=== PATIENT | female | born 1960 | race Caucasian/White ===

== ENCOUNTER → 2017-04-15 | Outpatient (CLI) | payer BC ==
[~2017-04-15] MED LIST: CEPH500C24 PO; CEPH500T7 PO; FAMO-67 PO; FAMO20TA28 PO; HYDR-318 PO; HYDR-389 PO; KET10 PO; LEVO25TA61 PO; LOR5/325 PO; NIRA100C PO; PHEN200T32 PO
== END ==
LOC: SPU 15:07
DX: N30.01 Acute cystitis with hematuria (principal)
CPT/HCPCS: 51701; 81001; 87077; 87088; 87186

== ENCOUNTER → 2017-04-23 | Outpatient (CLI) | payer BC ==
[2017-04-23 09:41] LABS: INR 0.97
--- NOTE | 2017-04-23 10:42 | RADIOLOGY IMAGING REPORT ---
FACILITY: [facility] - [place] PATIENT NAME: Shelby Cabrera : 1960 MR: [id number] V: [id number] EXAM DATE: ORDERING PHYSICIAN: MILY GREENFIELD TECHNOLOGIST: [place] [facility] [place] Patient: Shelby Cabrera : 1960 Visit/Account:[id number] Date of Sevice: 04/23/2017 Exam type: CHEST PA AND LAT History: Right pleural effusion Comparison: None. Findings: There is a moderate right pleural effusion present. A small amount of airspace consolidation in the right lung base likely representing atelectasis is suspected. There is mild blunting left costophren ic angle likely related to small left pleural effusion as well. The cardiac silhouette is normal in size. There Is a implanted right IJ catheter the distal tip projects over the superior vena cava.. There are bilateral ureteral stents in place which are incompletely imaged. An ovoid ossification pr ojects in right upper quadrant of abdomen which may represent a gallstone IMPRESSION: 1. Moderate right pleural effusion and suspected atelectasis the right lower lobe Blunted left costophrenic angle likely a small left pleural effusion Report Dictated By: Beth Henriquez MD at 04/23/2017 10:35 AM Report E-Signed By: Beth Henriquez MD at 04/23/2017 10:38 AM WSN:[email or web address]
--- NOTE | 2017-04-23 11:03 | RADIOLOGY IMAGING REPORT ---
[facility] PATIENT NAME: Shelby Cabrera : 1960 MR: [id number] V: [id number] EXAM DATE: ORDERING PHYSICIAN: MILY GREENFIELD TECHNOLOGIST: Location: [facility] - [place] Patient: Shelby Cabrera : 1960 Visit/Account:[id number] Date of Sevice: 04/23/2017 CHEST SPECIAL VIEW History: Status post right thoracentesis FINDINGS: Comparison studies: Comparison study earlier today at 7:04 AM Tubes and Lines: Implanted chemotherapy port noted Lungs and pleura: Interval resolution of right pleural effusion compatible with reported history of interval thoracentesis. Inspiration and expiration views were obtained. Lungs are well-aerated. T here is no evidence of a pneumothorax. There is minimal blunting of the left costophrenic angle whic h represents a small left pleural effusion which is unchanged. Mediastinum: normal. Cardiac silhouette: normal . Osseous structures: Unremarkable for age . IMPRESSION: Interval right sided thoracentesis without evidence of adverse sequelae. Minimal left pleural effusion unchanged Report Dictated By: Quincy Valenzuela MD at 04/23/2017 10:56 AM Report E-Signed By: Quincy Valenzuela MD at 04/23/2017 11:00 AM WSN:[id number]
--- NOTE | 2017-04-23 17:07 | RADIOLOGY IMAGING REPORT ---
[place] [facility] [place]IENT NAME: Shelby Cabrera : 1960 MR: [id number] V: [id number] EXAM DATE: ORDERING PHYSICIAN: MILY GREENFIELD TECHNOLOGIST: Location: [facility] - [place] Patient: Shelby Cabrera : 1960 Visit/Account:[id number] Date of Sevice: 04/23/2017 Exam type: THORACENTESIS History: Right pleural effusion Comparison: PA and lateral chest performed earlier in the day. Findings: Informed consent was obtained. The posterior right-sided the patient's chest was prepped and draped in usual sterile fashion. Local anesthesia was accomplished with 1% lidocaine. Under sonographic gu idance a thoracentesis catheter was advanced percutaneously into the right pleural space. Approximat vasiliy 850 mL of cloudy yellow fluid was removed from the right pleural cavity. The fluid was sent to l aboratory for evaluation. The procedure was accomplished without apparent complication. IMPRESSION: 1. Successful removal of approximately 850 mL of cloudy yellow pleural fluid from the right thorax u nder sonographic guidance Report Dictated By: Beth Henriquez MD at 04/23/2017 4:53 PM Report E-Signed By: Beth Henriquez MD at 04/23/2017 4:54 PM WSN:[email or web address]
== END ==
LOC: US 00:57
PROVIDERS: ATTEND Family Medicine
DX: J90 Pleural effusion, not elsewhere classified (principal); J98.11 Atelectasis; Z95.828 Presence of other vascular implants and grafts; Z96.0 Presence of urogenital implants; K63.89 Other specified diseases of intestine
CPT/HCPCS: 36415; 71046; 85610; A7048; 88305

== ENCOUNTER 2017-05-01 00:26 | Day surgery (SDC) | payer BC ==
[~2017-05-01] VITALS: Ht 160 cm; Wt 66.2 kg
[~2017-05-01 00:26] MED LIST changes: +CHOL10005 PO; +CIPR-214 PO; +MELA3TAB31 PO; +UBID100C48 PO; +[UNRECOGNIZED DRUG - CODE] IV
[2017-05-01 06:36] VITALS: BP 121/85
[2017-05-01] MEDS ORDERED: MIDAZOLAM 2 MG/2 ML VIAL IVP PRN (06:45)
[2017-05-01] MEDS ORDERED: NORMOSOL R SOLN(*) 1000 ML BAG 1,000 ML IV PRN (06:45)
[2017-05-01] MEDS ORDERED: FAMOTIDINE 20 MG TAB PO ONE (06:45)
[2017-05-01] MEDS ORDERED: LIDOCAINE/SOD BICARB 8.4% SYR ID ONE (06:45)
[2017-05-01] MEDS ORDERED: ceFAZolin(*) 1 GM VIAL 1 GM in NS(*) 0.9% 100 ML ADDVANT BAG 100 ML IVPB ONE (06:45)
[2017-05-01] MEDS ORDERED: LIDOCAINE MPF 1% 5 ML VIAL ONE (06:56)
[2017-05-01] MEDS ORDERED: ONDANSETRON 4 MG/2 ML VIAL ONE (06:56)
[2017-05-01] MEDS ORDERED: PROPOFOL EMUL(*) 10MG/ML 20 ML 20 ML ONE (06:56)
[2017-05-01] MEDS ORDERED: fentaNYL CITR 100 MCG/2 ML AMP ONE (06:56)
[2017-05-01] MEDS ORDERED: DEXAMETHASONE SOD PHOS 10MG/ML ONE (06:56)
[2017-05-01] MEDS ORDERED: MIDAZOLAM 2 MG/2 ML VIAL ONE (06:56)
[2017-05-01] MEDS ORDERED: LIDOCAINE 2% JELLY 5 ML TUBE ONE (07:35)
[2017-05-01] MEDS ORDERED: WATER FOR IRRIG,STERILE 3000ML IR ONE (08:13)
[2017-05-01] MEDS ORDERED: CIPR-214 PO (08:51)
[2017-05-01] MEDS ORDERED: HYDR-389 PO (08:52)
[2017-05-01] MEDS ORDERED: FAMO20TA28 PO (08:53)
[2017-05-01 09:08] VITALS: BP 106/81
[2017-05-01] MEDS ORDERED: GENTAMICIN(*) 80 MG/2 ML VIAL 160 MG in NS(*) 0.9% 100 ML BAG 100 ML IVPB ONE (09:10)
[2017-05-01 09:37] VITALS: BP 110/67
[2017-05-01 09:53] VITALS: BP 115/77
[2017-05-01 09:54] VITALS: BP 121/75
--- NOTE | 2017-05-01 11:28 | RADIOLOGY IMAGING REPORT ---
FACILITY: [facility] - [place] PATIENT NAME: Shelby Cabrera : 1960 MR: [id number] V: [id number] EXAM DATE: ORDERING PHYSICIAN: CHAVEZ LIMA TECHNOLOGIST: Location: [facility] [place] Patient: Shelby Cabrera : 1960 Visit/Account:[id number] Date of Sevice: 05/01/2017 Exam: C-ARM FLUORO 1 HR Indication: STENT EXCHANGE, RAD Comparison: 01/20/2017 Findings: Fluoroscopy is provided for bilateral cystoscopy and ureteral stent exchange. Fluoroscopy time three seconds DOSE: Air kerma was 2.5 mGy. IMPRESSION: Fluoroscopy for cystoscopy, refer to the urologist operative note for complete details Report Dictated By: Marito Orosco at 05/01/2017 11:13 AM Report E-Signed By: Marito Orosco at 05/01/2017 11:24 AM WSN:[email or web address]
--- NOTE | 2017-05-01 15:32 | OPERATIVE REPORT 1 ---
EVENT DATE: May 01, 2017 SURGEON: Jem Flowers MD ANESTHESIOLOGIST: Dillon Patterson MD ANESTHESIA: General anesthetic. PREOPERATIVE DIAGNOSES 1. Bilateral ureteral obstruction secondary metastatic ovarian carcinoma. 2. Chronic indwelling ureteral stents. 3. Status post urinary tract infection. POSTOPERATIVE DIAGNOSES 1. Bilateral ureteral obstruction secondary metastatic ovarian carcinoma. 2. Chronic indwelling ureteral stents. 3. Status post urinary tract infection. PROCEDURES PERFORMED 1. Cystourethroscopy. 2. Collection of urine for urinalysis, culture, and sensitivity. 3. Bilateral ureteral stent removal and replacement. DESCRIPTION OF PROCEDURE Under general anesthetic, the patient was prepped and draped in the extended lithotomy position. The 21 panendoscope was admitted through the urethra into the bladder. Urine was obtained for culture and sensitivity. Both stents were visible in the bladder. The cystitis that was apparent three to four weeks ago appeared to be resolved. An access catheter was placed up the right collecting system. A 0.038 guidewire and then a 4.8 x 26 cm Percuflex Plus passed up the right collecting system without any difficulty. The left ureteral stent was placed in a like manner. X-ray confirmed satisfactory positioning. The bladder was drained. The patient tolerated the procedure satisfactorily and returned to the recovery room in satisfactory condition. This is a 56-year-old white female who complains of bilateral ureteral obstruction secondary to metastatic ovarian carcinoma. The patient had gotten a good result from her hysterectomy and chemotherapy. The patient recently complained of fever and not feeling well. A urine culture showed Streptococcus anginosus and diphtheroids. The bacteria were sensitive to almost all antibiotics. The patient was treated with Cipro therapy and rapidly improved. Followup cathed urine showed resolution of the infection. I explained the need for stent removal and replacement secondary to harboring chronic bacteria. The patient was agreeable to removal and replacement, and that has been accomplished. See operative note for details. The patient will be ready for discharge home when alert and functional. She is to force fluids, 2 L per day. Activities are as tolerated. She is to continue her usual medications. The patient will probably discharge on Cipro, Pepcid, and Sanger therapy. PLAN Follow up in approximately one week. The patient is to call for an appointment. If the patient has a problem, she is to contact me. [facility]
== END 2017-05-01 09:08 | disposition home or self-care (01) ==
LOC: OR 00:26
DX: C56.9 Malignant neoplasm of unspecified ovary (principal); N13.5 Crossing vessel and stricture of ureter without hydronephrosis
CPT/HCPCS: 52332; 76000; 81001; 87088; C2617; J0690; J1100; J1580; J2001; J2250; J2405; J2704; J3010; J7050

== ENCOUNTER 2017-07-24 01:45 | Day surgery (SDC) | payer BC ==
[~2017-07-24] VITALS: Ht 160 cm; Wt 65.8 kg
[~2017-07-24 01:45] MED LIST changes: +[UNRECOGNIZED DRUG - CODE] IV
[2017-07-24 10:01] LABS: PLATELET COUNT, AUTOMATED 96 K/uL (150-450)
[2017-07-24] MEDS ORDERED: MIDAZOLAM 2 MG/2 ML VIAL IVP PRN (10:25)
[2017-07-24] MEDS ORDERED: FAMOTIDINE 20 MG TAB PO ONE (10:25)
[2017-07-24] MEDS ORDERED: LIDOCAINE/SOD BICARB 8.4% SYR ID ONE (10:25)
[2017-07-24] MEDS ORDERED: NORMOSOL R SOLN(*) 1000 ML BAG 1,000 ML IV PRN (10:25)
[2017-07-24] MEDS ORDERED: GENTAMICIN(*) 80 MG/2 ML VIAL 160 MG in NS(*) 0.9% 100 ML BAG 100 ML IVPB ONE (10:25)
[2017-07-24 10:42] VITALS: BP 150/97
[2017-07-24] MEDS ORDERED: PROPOFOL EMUL(*) 10MG/ML 20 ML 20 ML ONE (11:36)
[2017-07-24] MEDS ORDERED: ONDANSETRON 4 MG/2 ML VIAL ONE (11:36)
[2017-07-24] MEDS ORDERED: DEXAMETHASONE SOD PHOS 10MG/ML ONE (11:36)
[2017-07-24] MEDS ORDERED: LIDOCAINE MPF 1% 5 ML VIAL ONE ×2 (11:36→11:38)
[2017-07-24] MEDS ORDERED: fentaNYL CITR 100 MCG/2 ML AMP ONE (11:36)
[2017-07-24] MEDS ORDERED: ceFAZolin 1 GM VIAL ONE (12:10)
[2017-07-24] MEDS ORDERED: LEVO-85 PO (13:22)
[2017-07-24 13:35] VITALS: BP 125/85
--- NOTE | 2017-07-24 13:36 | RADIOLOGY IMAGING REPORT ---
FACILITY: [facility] PATIENT NAME: Shelby Cabrera : 1960 MR: [id number] V: [id number] EXAM DATE: ORDERING PHYSICIAN: CHAVEZ LIMA TECHNOLOGIST: Location: [facility] Patient: Shelby Cabrera : 1960 Visit/Account:[id number] Date of Sevice: 07/24/2017 OR fluoroscopy films: Abdomen History: Stent placement Comparison: 05/01/2017 Findings: Fluoroscopy and imaging was provided for Dr. Lima. 0.01 minutes of fluoroscopy time was u tilized for AK of 1.27 mGy. 3 images of the abdomen are archived to PACS which demonstrate bilateral nephroureteral stents. IMPRESSION: Fluoroscopy and imaging provided for Dr. Lima please see his report for details. Report Dictated By: Ana Weaver MD at 07/24/2017 1:29 PM Report E-Signed By: Ana Weaver MD at 07/24/2017 1:31 PM WSN:[email or web address]
[2017-07-24 13:56] VITALS: BP 125/85
[2017-07-24 14:14] VITALS: BP 125/85
[2017-07-24 14:27] VITALS: BP 130/92
[2017-07-24 14:30] VITALS: BP 137/78
[2017-07-24] MEDS ORDERED: ALBUTEROL/IPRATROPIUM 3 ML NEB ONE (15:14)
--- NOTE | 2017-07-24 15:22 | RADIOLOGY IMAGING REPORT ---
FACILITY: [facility] PATIENT NAME: Shelby Cabrera : 1960 MR: [id number] V: [id number] EXAM DATE: ORDERING PHYSICIAN: ANGELA MELTON TECHNOLOGIST: Location: [facility] Patient: Shelby Cabrera : 1960 Visit/Account:[id number] Date of Sevice: 07/24/2017 2 VIEWS CHEST INDICATION: Crackles in lung base. Status post surgery. COMPARISON: 04/23/2017. FINDINGS: Cardiomediastinal silhouette and pulmonary vessels within normal limits. Right Port-A-Cath is in plac e tip in SVC/right atrial junction. There is no focal infiltrate or lobar consolidation. Small bilateral pleural effusions, right greater than left mild atelectasis. No nodule. Upper abdomen is unremarkable. No acute bony abnormality. IMPRESSION: 1. Small bilateral pleural effusions with associated atelectasis, right greater than left. No focal infiltrate. Report Dictated By: Deo Barrett at 07/24/2017 3:14 PM Report E-Signed By: Deo Barrett at 07/24/2017 3:17 PM WSN:[id number]
--- NOTE | 2017-07-25 11:31 | FLOCK CYSTOURETHROSCOPY ---
EVENT DATE: July 24, 2017 SURGEON: Rodriguez Flowers MD PREOPERATIVE DIAGNOSES 1. Bilateral ureteral stents. 2. Bilateral ureteral obstruction. 3. Ovarian cancer. POSTOPERATIVE DIAGNOSES 1. Bilateral ureteral stents. 2. Bilateral ureteral obstruction. 3. Ovarian cancer. PROCEDURES PERFORMED 1. Cystourethroscopy. 2. Bilateral ureteral stent removal. 3. Bilateral ureteral stent replacement. 4. Collection of urine for culture and sensitivity. DESCRIPTION OF PROCEDURE Under general anesthetic, the patient was prepped and draped in the extended lithotomy position. The 21-Panendoscope was admitted through the urethra and into the bladder. The ridge that has been prominent in the midline elevating the trigone seemed to be more pronounced at this setting. There is inflammation in that area as well. The remainder of the bladder appeared to be free of any inflammation. The inflammation on the ridge possibly could be due to chronic indwelling ureteral stents. The right ureteral stent was eluded in the left. Access catheters and guidewire was placed on the right and the 6-[place] x 26 cm Contour passed up to the right collective system without any difficulty. The left ureteral stent was removed. The access catheter was placed and the 6- [place] x 26 cm Percuflex Plus. The bladder was drained. X-ray confirmed satisfactory positioning in the kidney as well as in the bladder and that was confirmed under direct visualization as well. The patient tolerated the procedure satisfactorily and returned to the recovery room in satisfactory condition. This is a 56-year-old white female complaining of bilateral ureteral obstruction secondary to metastatic ovarian cancer. The patient returns for removal of the old stents and replacement with new stents. That has been accomplished. See operative note for details. The patient will be ready for discharge home when alert and functional. She is to force fluids 12 glasses of water per day. Activities are as tolerated. She is to continue her usual medications. She states she has all of her normal medications that I prescribed except for the antibiotic, Levaquin. We plan followup in one week and replacement of the stents probably in approximately three to four months. [facility]
== END 2017-07-24 13:35 | disposition home or self-care (01) ==
LOC: OR 01:45
DX: N13.5 Crossing vessel and stricture of ureter without hydronephrosis (principal); C56.9 Malignant neoplasm of unspecified ovary; E03.9 Hypothyroidism, unspecified; Z90.49 Acquired absence of other specified parts of digestive tract; Z87.891 Personal history of nicotine dependence; Z92.21 Personal history of antineoplastic chemotherapy
CPT/HCPCS: 36415; 52332; 71046; 76000; 81001; 85025; 87088; 94640; 94667; C1758; C1769; C1894; C2617; J0690; J1100; J1580; J2001; J2405; J2704; J3010; J7050; J7620

== ENCOUNTER → 2017-08-12 | Outpatient (REF) | payer BC ==
[~2017-08-12] MED LIST changes: +LEVO-85 PO
== END ==
LOC: ZZSENDIN 11:06
PROVIDERS: ATTEND Physician Assistant
DX: R06.02 Shortness of breath (principal); R06.00 Dyspnea, unspecified
CPT/HCPCS: 85379

== ENCOUNTER → 2017-08-12 | Outpatient (CLI) | payer BC ==
[~2017-08-12] MED LIST changes: +IOPAMIDOL 76% 75 ML INFUS BTL 75 ML ONE; +NS 0.9% 25 ML BAG 50 ML ONE
--- NOTE | 2017-08-12 14:04 | RADIOLOGY IMAGING REPORT ---
FACILITY: [facility] - [place] PATIENT NAME: Shelby Cabrera : 1960 MR: [id number] V: [id number] EXAM DATE: ORDERING PHYSICIAN: ADDIE DOLAN TECHNOLOGIST: [place] [facility] [place] Patient: Shelby Cabrera : 1960 Visit/Account:[id number] Date of Sevice: 08/12/2017 CTA CHEST WW/O CNTR (PULM ANG) HISTORY: Shortness of breath, elevated d-dimer, cough ADDITIONAL HISTORY: None. TECHNIQUE: CTA chest with intravenous contrast. Axial imaging acquired following administration of IV contrast timed for maximum opacification of the pulmonary arterial vasculature. Slab 3-D MIP cecily nstructed images were also created for further evaluation and interpretation. Reconstruction of the [facility] data set includes multiplanar 2-D in the sagittal and coronal planes and 3-D reconstructed tarun nal slab MIP series. 3-D images were created by the technologist. Dose Lowering Technique One of the following dose optimization techniques was utilized in the performance of this exam: Autom ated exposure control; adjustment of the mA and/or kV according to the patient's size; or use of an i terative reconstruction technique. Specific details can be referenced in the facility's radiology C T exam operational policy. CONTRAST: 75 mL Isovue-370 COMPARISON: Two view chest July 24, 2017 FINDINGS: Lungs/pleura: The bilateral pleural effusions have increased when compared to the prior chest. The right pleural effusion's posterior layering and appears large. The left pleural effusion's posterior layering and appears moderate. There is compressive atelectasis in both lower lobes. Heart/vessels: There is an implanted right IJ port the distal tip is in superior vena cava. There i s no evidence of pulmonary emboli. Mediastinum/lymph nodes: Negative. Visualized upper abdomen: There suggestion of nodular thickening along the anterolateral visualized right lobe the liver. These likely represent peritoneal implants in the history of stage III ovarian cancer. Bones/soft tissues: Negative. Additional findings: None IMPRESSION: Bilateral pleural effusions have increased in size when compared to the prior two-view chest of July 24, 2017. The right pleural effusion's posterior layering and appears large and the left pleural effu luis felipe is also posterior layering and appears moderate. There is compressive atelectasis in both lower lobes No evidence of pulmonary emboli Results were called to ADDIE DOLAN at 08/12/2017 2:00 PM. Report Dictated By: Beth Henriquez MD at 08/12/2017 1:49 PM Report E-Signed By: Beth Henriquez MD at 08/12/2017 2:01 PM WSN:[email or web address]
--- NOTE | 2017-08-12 15:54 | RADIOLOGY IMAGING REPORT ---
FACILITY: [facility] PATIENT NAME: Shelby Cabrera : 1960 MR: [id number] V: [id number] EXAM DATE: ORDERING PHYSICIAN: ADDIE DOLAN TECHNOLOGIST: Location: [facility] - [place] Patient: Shelby Cabrera : 1960 Visit/Account:[id number] Date of Sevice: 08/12/2017 Exam type: CHEST SPECIAL VIEW History: Postthoracentesis Comparison: Two view chest July 24, [address] of the chest performed today.. Findings: There is been a marked decrease in the right pleural effusion when compared to today's CTA of the tim st small right pleural effusion remains. There is better aeration of the right lung base. No pneumo thorax is seen. There is a moderate left pleural effusion again noted. Left basilar airspace consol idation consistent with atelectasis as seen on today's CTA. Cardiac silhouette is normal in size. I ncidentally noted are incompletely imaged are bilateral ureteral stents. Contrast is seen in the non dilated renal collecting systems from today's CT IMPRESSION: 1. There is been a marked decrease in right pleural effusion when compared to today's CT of the ches t. Small right pleural effusion and a small amount of right basilar atelectasis remains. No evidenc e of a pneumothorax Moderate left pleural effusion and left basilar airspace consolidation remains Report Dictated By: Beth Henriquez MD at 08/12/2017 3:48 PM Report E-Signed By: Beth Henriquez MD at 08/12/2017 3:51 PM WSN:[email or web address]
--- NOTE | 2017-08-12 17:44 | RADIOLOGY IMAGING REPORT ---
FACILITY: [facility] PATIENT NAME: Shelby Cabrera : 1960 MR: [id number] V: [id number] EXAM DATE: ORDERING PHYSICIAN: ADDIE DOLAN TECHNOLOGIST: Location: [facility] Patient: Shelby Cabrera : 1960 Visit/Account:[id number] Date of Sevice: 08/12/2017 Exam type: THORACENTESIS History: Large right pleural effusion, history of ovarian cancer stage III Comparison: CTA chest performed today. Findings: Informed consent was obtained. The right-sided the patient's posterior thorax was prepped and draped in usual sterile fashion. Local anesthesia was accomplished with 1% lidocaine. Under sonographic g uidance a thoracentesis catheter was advanced percutaneously into the posterior right thorax. Approx imately 1160 mL of dark el right pleural fluid was removed from the right pleural cavity. The pro cedure was accomplished without apparent complication. Post thoracentesis chest radiograph revealed no evidence of a pneumothorax. The patient left the department in no apparent distress. IMPRESSION: 1. Successful sonographically guided right-sided paracentesis with interval removal of 1160 mL of da rk el right pleural fluid Report Dictated By: Beth Henriquez MD at 08/12/2017 5:37 PM Report E-Signed By: Beth Henriquez MD at 08/12/2017 5:39 PM WSN:[email or web address]
== END ==
LOC: CT 12:51
PROVIDERS: ATTEND Physician Assistant
DX: J90 Pleural effusion, not elsewhere classified (principal)
CPT/HCPCS: 32555; 71046; 71275; Q9967

== ENCOUNTER → 2017-08-13 | Outpatient (REF) | payer BC ==
[~2017-08-13] MED LIST changes: -IOPAMIDOL 76% 75 ML INFUS BTL 75 ML ONE; -NS 0.9% 25 ML BAG 50 ML ONE
== END ==
LOC: ZZSENDIN 16:51
PROVIDERS: ATTEND Physician Assistant
DX: J91.8 Pleural effusion in other conditions classified elsewhere (principal)

== ENCOUNTER → 2017-08-15 | Outpatient (CLI) | payer BC ==
--- NOTE | 2017-08-15 13:28 | RADIOLOGY IMAGING REPORT ---
FACILITY: [facility] PATIENT NAME: Shelby Cabrera : 1960 MR: [id number] V: [id number] EXAM DATE: ORDERING PHYSICIAN: ADDIE DOLAN TECHNOLOGIST: Location: [facility] Patient: Shelby Cabrera : 1960 Visit/Account:[id number] Date of Sevice: 08/15/2017 Exam type: Single view of the chest History: Pleural effusion, postthoracentesis Comparison: 08/12/2017. Findings: There is interval decrease in size of left-sided pleural effusion with minimal residual left-sided pl eural fluid. Small to moderate right subpleural effusion is unchanged. Atelectasis the right lung base is noted. N ow visualized is a small right apical pneumothorax. Heart size is prominent. Right-sided chemotherapy catheter has its tip at the cavoatrial junction. IMPRESSION: 1. Interval decrease in size of the left-sided pleural effusion with trace residual left-sided pleura l fluid. No appreciable pneumothorax on the left. 2. Interval development of a small right apical pneumothorax. There remains a small to moderate right subpleural effusion. Results were called to ADDIE DOLAN at 08/15/2017 1:24 PM. Report Dictated By: Deo Lange MD at 08/15/2017 1:15 PM Report E-Signed By: Deo Lange MD at 08/15/2017 1:24 PM WSN:[email or web address]
--- NOTE | 2017-08-15 16:06 | RADIOLOGY IMAGING REPORT ---
FACILITY: [facility] PATIENT NAME: Shelby Cabrera : 1960 MR: [id number] V: [id number] EXAM DATE: ORDERING PHYSICIAN: ADDIE DOLAN TECHNOLOGIST: Location: [facility] - [place] Patient: Shelby Cabrera : 1960 Visit/Account:[id number] Date of Sevice: 08/15/2017 Exam type: THORACENTESIS History: Left pleural effusion Comparison: Chest radiograph August 12, 2017. Findings: Informed consent was obtained. The left-sided the patient's chest was prepped and draped in usual st erile fashion. Local anesthesia was accomplished with 1% lidocaine. Utilizing sonographic guidance a thoracentesis catheter was advanced percutaneously into the left pleural cavity. 1020 mL of bloody pleural fluid was removed from the left side the thorax. The postthoracentesis radiograph revealed no evidence of a left-sided pneumothorax. The procedure was without apparent complication. IMPRESSION: 1. Successful sonographically guided left-sided thoracentesis Report Dictated By: Beth Henriquez MD at 08/15/2017 3:54 PM Report E-Signed By: Beth Henriquez MD at 08/15/2017 4:02 PM WSN:[email or web address]
== END ==
LOC: US 03:50
PROVIDERS: ATTEND Physician Assistant
DX: J91.8 Pleural effusion in other conditions classified elsewhere (principal)
CPT/HCPCS: 32555; 71046

== ENCOUNTER 2017-08-17 08:54 | Emergency (ER) | payer BC ==
--- NOTE | 2017-08-17 09:01 | ER Report ---
History and Physical Time Seen By MD: 08:59 HPI/ROS CHIEF COMPLAINT: Chest pain; status post left thoracentesis on August 15. HISTORY OF PRESENT ILLNESS: Patient is a 56-year-old female who has a history of ovarian cancer. She is status post a thoracentesis that was performed on August 15 review of the postthoracentesis x-ray showed no left-sided pneumothorax however there was the development of a small right-sided pneumothorax not noticed on prior exam. Patient was scheduled for repeat x-ray tomorrow. Last night she was having discomfort in the posterior aspect of the left thorax. He states that position seems to make it worse or better. Currently states pain is 4 out of 10 in intensity. She denies any fevers or chills. REVIEW OF SYSTEMS: Constitutional: No fever, no chills. Eyes: No discharge. ENT: No sore throat. Cardiovascular: Posterior left chest wall pain Respiratory: No cough, no shortness of breath. Gastrointestinal: No abdominal pain, no vomiting. Genitourinary: No hematuria. Musculoskeletal: No back pain. Skin: No rashes. Neurological: No headache. Allergies: Coded Allergies: carboplatin (Verified Allergy, Severe, RASH, 08/17/17) HEART RATE AND BLOOD PRESSURE ELEVATION ketorolac (Verified Allergy, Mild, RASH, 08/17/17) face and ears fell tingly and she felt like she was getting a rash. Home Meds Reported Medications Oxaliplatin (OXALIPLATIN) 50 Mg Vial, 50 MG IV Q3WK, VIAL 07/22/17 Melatonin (MELATONIN) 3 Mg Tablet, 3 MG PO QHS 04/29/17 Cholecalciferol (Vitamin D3) (VITAMIN D3) Unknown Strength Tablet, PO QDAY, TAB 04/29/17 Ubidecarenone (COQ-10) 100 Mg Capsule, 100 MG PO BID, CAPSULE 04/29/17 Levothyroxine Sodium (LEVOTHYROXINE SODIUM) 25 Mcg Tablet, 25 MCG PO QDAY 04/07/15 Discontinued Reported Medications Levofloxacin 500 Mg Tab (LEVAQUIN 500 MG TAB) 500 Mg Tablet, 500 MG PO DAILY for 10 Days, #10 TAB 07/24/17 Past Medical/Surgical History History of hypothyroidism history of ovarian cancer currently undergoing chemotherapy Hx Smoking: Yes (CHEWED TOBOCCO FOR A COUPLE OF YEARS OVER 30 YRS. AGO.) Smoking Status: Former Smoker Exposure to Second Hand Smoke?: Yes Hx Substance Use Disorder: No Hx Alcohol Use: Yes (NOT WHILE ON CHEMO) Constitutional Vital Sign - Last 24 Hours 08/17/17 08/17/17 08/17/17 08/17/17 08:55 10:02 10:41 10:52 Temp 98.1 Pulse 100 94 88 90 Resp 16 16 16 16 B/P (MAP) 150/77 113/77 (89) 105/65 (78) 112/68 (83) Pulse Ox 91 91 92 93 O2 Delivery Room Air Room Air Room Air Room Air Physical Exam General Appearance: The patient is alert, has no immediate need for airway protection and no current signs of toxicity. Eyes: Pupils equal and round no injection. Respiratory: Chest is non tender, lungs are clear to auscultation. Bilateral breath sounds Cardiac: regular rate and rhythm Gastrointestinal: Abdomen is soft and non tender, no masses, bowel sounds normal. Skin: No rashes or lesions. Medical Decision Making EKG/Imaging Imaging FACILITY: [facility] [place] PATIENT NAME: Shelby Cabrera : 1960 MR: [id number] V: [id number] EXAM DATE: ORDERING PHYSICIAN: DARIO HOUSE TECHNOLOGIST: Location: [facility] [place] Patient: Shelby Cabrera : 1960 Visit/Account:[id number] Date of Sevice: 08/17/2017 CHEST PA AND LAT INDICATION: left posterior chest pain; s/p thoracentesis 08/15 COMPARISON: 08/15/2017 FINDINGS: Heart size within normal limits. Compared to prior study, there is an increasing small left pleural effusion present with underlying atelectasis. There is a stable moderate right pleural effusion with underlying atelectasis No pneumothorax is identified IMPRESSION: 1. Left-sided pleural effusion has increased in size, small effusion is now present on the left and a stable moderate effusion is again noted on the right Report Dictated By: Marito Orosco at 08/17/2017 10:36 AM Report E-Signed By: Marito Orosco at 08/17/2017 10:37 AM WSN:[email or web address] ED Course/Re-evaluation ED Course 08/17/2017 9:25:11 am patient status post left thoracentesis on T[address] 29 secondary to pleural effusion from ovarian cancer. Having some pain mostly to the left posterior aspect of the thorax. She denies any anterior chest wall pain. She also denies shortness of breath. Plan this time will be to repeat chest x-ray to look for development of a pneumothorax or pleural fluid Decision to Disposition Date: Aug 17, 2017 Decision to Disposition Time: 10:48 Depart Departure Latest Vital Signs Vital Signs Date Time Temp Pulse Resp B/P (MAP) Pulse Ox O2 Delivery O2 Flow Rate FiO2 08/17/17 10:52 90 16 112/68 (83) 93 Room Air 08/17/17 08:55 98.1 Impression: Primary Impression: Chest wall pain Condition: Improved Disposition: HOME OR SELF-CARE Patient Instructions: Chest Wall Pain (ED) DARIO HOUSE MD Aug 17, 2017 09:01
--- NOTE | 2017-08-17 10:42 | RADIOLOGY IMAGING REPORT ---
FACILITY: [facility] PATIENT NAME: Shelby Cabrera : 1960 MR: [id number] V: [id number] EXAM DATE: ORDERING PHYSICIAN: DARIO HOUSE TECHNOLOGIST: Location: [facility] Patient: Shelby Cabrera : 1960 Visit/Account:[id number] Date of Sevice: 08/17/2017 CHEST PA AND LAT INDICATION: left posterior chest pain; s/p thoracentesis 08/15 COMPARISON: 08/15/2017 FINDINGS: Heart size within normal limits. Compared to prior study, there is an increasing small left pleural effusion present with underlying a telectasis. There is a stable moderate right pleural effusion with underlying atelectasis No pneumothorax is identified IMPRESSION: 1. Left-sided pleural effusion has increased in size, small effusion is now present on the left and a stable moderate effusion is again noted on the right Report Dictated By: Marito Orosco at 08/17/2017 10:36 AM Report E-Signed By: Marito Orosco at 08/17/2017 10:37 AM WSN:[email or web address]
[2017-08-17 10:52] VITALS: BP 112/68
== END 2017-08-17 10:55 | disposition home or self-care (01) ==
LOC: ER 09:35
DX: R07.89 Other chest pain (principal)
CPT/HCPCS: 71046; 99283

== ENCOUNTER → 2017-08-25 | Outpatient (CLI) | payer BC ==
--- NOTE | 2017-08-25 11:13 | RADIOLOGY IMAGING REPORT ---
FACILITY: [facility] - [place] PATIENT NAME: Shelby Cabrera : 1960 MR: [id number] V: [id number] EXAM DATE: ORDERING PHYSICIAN: ADDIE DOLAN TECHNOLOGIST: Location: [facility] Patient: Shelby Cabrera : 1960 Visit/Account:[id number] Date of Sevice: 08/25/2017 CHEST PA AND LAT History: Pleural effusion FINDINGS: Comparison studies: Comparison study 08/17/2017 and 08/15/2017 Tubes and Lines: Implanted chemotherapy port again noted. Lungs and pleura: There is a large right-sided pleural effusion which is increased significantly si nce the previous examination. There is a very small left pleural effusion which is stable and unchan ged. Interval development of minimal left midlung discoid atelectasis. Aerated portions of the lung s are otherwise unremarkable Mediastinum: normal. Cardiac silhouette: normal . Osseous structures: Unremarkable for age . IMPRESSION: Large right pleural effusion increased from 08/17/2017. Small stable left pleural effusion. Results were called to referring service at 08/25/2017 10:54 AM. Report Dictated By: Quincy Valenzuela MD at 08/25/2017 10:54 AM Report E-Signed By: Quincy Valenzuela MD at 08/25/2017 11:08 AM WSN:[email or web address]
--- NOTE | 2017-08-25 12:37 | RADIOLOGY IMAGING REPORT ---
[facility] PATIENT NAME: Shelby Cabrera : 1960 MR: [id number] V: [id number] EXAM DATE: ORDERING PHYSICIAN: ADDIE DOLAN TECHNOLOGIST: Location: [facility] Patient: Shelby Cabrera : 1960 Visit/Account:[id number] Date of Sevice: 08/25/2017 CHEST SPECIAL VIEW HISTORY: Status post thoracentesis. Additional history: Metastatic ovarian carcinoma. Patient has had multiple prior thoracenteses. COMPARISON: Chest x-ray earlier today which demonstrated a large right pleural effusion which is inc reased since the previous exam FINDINGS: The right-sided pleural effusion has been nearly completely evacuated. There is evidence of a right basilar lung entrapment with a small corner of air seen at the right costophrenic angle. There is al so a very small right apical pneumothorax. On the inspiratory view the visceral pleura is 3 mm from the parietal wall. On the expiratory view it increases slightly to 7 mm. I spoke with the patient who lives approximately one half hour from [place]. She is asymptomatic. I asked her to spend in the next several hours in town and have lunch. If she is still asymptomatic s he may proceed home. She was given precautions that she should immediately seek medical attention if she feels she is becoming progressively short of breath. IMPRESSION: Status post right-sided thoracentesis there is a very small residual apical pneumothorax and evidence of minimal lung entrapment the right costophrenic angle. Report Dictated By: Quincy Valenzuela MD at 08/25/2017 12:26 PM Report E-Signed By: Quincy Valenzuela MD at 08/25/2017 12:33 PM WSN:[email or web address]
--- NOTE | 2017-08-25 14:18 | RADIOLOGY IMAGING REPORT ---
[facility] PATIENT NAME: Shelby Cabrera : 1960 MR: [id number] V: [id number] EXAM DATE: ORDERING PHYSICIAN: ADDIE DLOAN TECHNOLOGIST: Location: [facility] [place] Patient: Shelby Cabrera : 1960 Visit/Account:[id number] Date of Sevice: 08/25/2017 THORACENTESIS History: Metastatic ovarian cancer. Enlarging right pleural effusion. ADDITIONAL PERTINENT HISTORY: None. PROCEDURE: Following informed consent and timeout the posterior thorax over the right Lung was sonogr aphic interrogated. The pleural effusion was identified. Overlying skin was prepped and draped in the usual sterile fashion. Under sonographic guidance the skin and subcutaneous tissues and parietal pleural lining was anesthetized with 1% lidocaine. A small dermatotomy was made and under sonographic guidance centesis needle was carefully advanced into the effusion. Needle removed with flexible cat heter remaining in place. The Pleural fluid was then evacuated. A total of 1370 ML of dark yellow f luid was withdrawn. Minimal residual effusion seen at the conclusion of the procedure. Patient to ated the procedure well. Post procedural chest x-ray demonstrates reduction of the pleural effusion and very small right apical pneumothorax as well as minimal entrapped lung at the right costophrenic angle. IMPRESSION: Successful ultrasound-guided thoracentesis with a total of 1370 ML of fluid withdrawn. Very small right apical pneumothorax post procedure. See follow-up chest x-ray Report Dictated By: Quincy Valenzuela MD at 08/25/2017 2:13 PM Report E-Signed By: Quincy Valenzuela MD at 08/25/2017 2:15 PM WSN:[email or web address]
== END ==
LOC: RAD 10:08
PROVIDERS: ATTEND Physician Assistant
DX: J91.8 Pleural effusion in other conditions classified elsewhere (principal)
CPT/HCPCS: 32555; 71046

== ENCOUNTER → 2017-09-09 | Outpatient (CLI) | payer BC ==
[2017-09-09 12:03] LABS: INR 1.01
--- NOTE | 2017-09-09 14:44 | RADIOLOGY IMAGING REPORT ---
FACILITY: [facility] PATIENT NAME: Shelby Cabrera : 1960 MR: [id number] V: [id number] EXAM DATE: ORDERING PHYSICIAN: ADDIE DOLAN TECHNOLOGIST: Location: [facility] - [place] Patient: Shelby Cabrera : 1960 Visit/Account:[id number] Date of Sevice: 09/09/2017 Exam type: CHEST History: Possible bilateral pleural effusion Comparison: Two-view chest today. Findings: There is a moderate to large right pleural effusion present with adjacent atelectatic lung. Small to moderate left pleural effusion is also present IMPRESSION: 1. Moderate to large right pleural effusion and [id number] left pleural effusion Report Dictated By: Beth Henriquez MD at 09/09/2017 2:38 PM Report E-Signed By: Beth Henriquez MD at 09/09/2017 2:39 PM WSN:[email or web address]
--- NOTE | 2017-09-09 14:45 | RADIOLOGY IMAGING REPORT ---
FACILITY: [facility] - [place] PATIENT NAME: Shelby Cabrera : 1960 MR: [id number] V: [id number] EXAM DATE: ORDERING PHYSICIAN: ADDIE DOLAN TECHNOLOGIST: [place] [facility] [place] : 1960 Visit/Account:[id number] Date of Sevice: 09/09/2017 Exam type: CHEST PA AND LAT History: Metastatic ovarian cancer with shortness of breath Comparison: PA chest August 25, 2017. Findings: There is been interval resolution of the previously noted small right-sided pneumothorax. There is o pacification of the mid to lower right thorax likely a combination of right pleural effusion and comp ressive right lower lobe. There is a small to moderate left pleural effusion that appears similar to the prior study. There is no evidence of mediastinal shift. The cardiac silhouette is normal in si ze. The right-sided implanted port appears unchanged. Incompletely imaged are bilateral ureteral st ents IMPRESSION: 1. Opacification of the mid to lower right thorax likely combination of right pleural effusion and a telectatic right lower lobe Small to moderate left pleural effusion appears unchanged Report Dictated By: Beth Henriquez MD at 09/09/2017 2:40 PM Report E-Signed By: Beth Henriquez MD at 09/09/2017 2:41 PM WSN:[email or web address]
--- NOTE | 2017-09-09 17:38 | RADIOLOGY IMAGING REPORT ---
[place] [facility] [place] NAME: Shelby Cabrera : 1960 MR: [id number] V: [id number] EXAM DATE: ORDERING PHYSICIAN: ADDIE DOLAN TECHNOLOGIST: Location: [facility] [place] Patient: Shelby Cabrera : 1960 Visit/Account:[id number] Date of Sevice: 09/09/2017 Exam type: CHEST SPECIAL VIEW History: Metastatic ovarian cancer with bilateral pleural effusions, status post right thoracentesis Comparison: Two view chest performed earlier in the day. Findings: There is been a marked reduction in the right pleural effusion which now appears small. There is a s mall right-sided pneumothorax most prominent along the inferior aspect of the right thorax. On the i nspiratory film the distance between the pleural margin and the right lateral thorax is 1.3 cm. The patient stated she was in no apparent distress Nada much better than before the thoracentesis. She left for lunch with a donor services specialist with instruction s to return in two hours. A follow-up chest did demonstrate small right inferior pneumothorax which is minimally increased in size. The distance between the pleural margin and the right lateral thorax is 1.5 cm.. There is no mediastinal shift. There is options were discussed with the patient includ ing stain in the hospital for 24-hour observation, chest tube placement or returning to home with lucina se observation by her and daughter using home oxygen previous prescribed by her healthcare pr mahin. The patient is to return to emergency room if she develops any shortness of breath. She yury l receive a follow-up chest radiograph two days. Additional findings are stable small left pleural effusion and small amount of patchy airspace consol idation right lung base from a partially reexpanded right lower lobe. The cardiac silhouette appears normal. Right IJ implanted port again seen IMPRESSION: 1. There Is a small right pneumothorax most prominent along the inferior thorax following right-sheba ed thoracentesis. Various options were discussed with the patient. She has elected to return [facility] with close observation by her and daughter with instructions to return back to the emergenc y room if she developed shortness of breath. The patient will be on home oxygen as prescribed by her health care provider. Small left pleural effusion unchanged Report Dictated By: Beth Henriquez MD at 09/09/2017 5:31 PM Report E-Signed By: Beth Henriquez MD at 09/09/2017 5:35 PM WSN:[email or web address]
--- NOTE | 2017-09-09 17:41 | RADIOLOGY IMAGING REPORT ---
FACILITY: [facility] PATIENT NAME: Shelby Cabrera : 1960 MR: [id number] V: [id number] EXAM DATE: ORDERING PHYSICIAN: ADDIE DOLAN TECHNOLOGIST: Location: [facility] Patient: Shelby Cabrera : 1960 Visit/Account:[id number] Date of Sevice: 09/09/2017 Exam type: THORACENTESIS History: Right pleural effusion Comparison: Two view chest performed today. Findings: Informed consent was obtained. The patient's posterior right thorax was prepped and draped usual diane rile fashion. Local anesthesia was accomplished with 1% lidocaine. Utilizing sonographic guidance a thoracentesis catheter was advanced into the right pleural space. 1500 mL of blood-tinged pleural f luid was removed from the right thorax. The described improved symptoms. The post thoracentesis tim st radiograph did demonstrate a small inferior right pneumothorax. Please see post pneumothorax ches t report for details IMPRESSION: 1. Successful sonographically guided right-sided thoracentesis with interval removal of 1500 mL of bl ood-tinged pleural fluid Report Dictated By: Beth Henriquez MD at 09/09/2017 5:35 PM Report E-Signed By: Beth Henriquez MD at 09/09/2017 5:37 PM WSN:[email or web address]
== END ==
LOC: RAD 11:29
PROVIDERS: ATTEND Physician Assistant
DX: Z01.812 Encounter for preprocedural laboratory examination (principal); J91.8 Pleural effusion in other conditions classified elsewhere
CPT/HCPCS: 32555; 36415; 71046; 76604; 85610; A7048

== ENCOUNTER → 2017-09-11 | Outpatient (CLI) | payer BC ==
--- NOTE | 2017-09-11 15:44 | RADIOLOGY IMAGING REPORT ---
FACILITY: [facility] PATIENT NAME: Shelby Cabrera : 1960 MR: [id number] V: [id number] EXAM DATE: ORDERING PHYSICIAN: ADDIE DOLAN TECHNOLOGIST: Location: [facility] Patient: Shelby Cabrera : 1960 Visit/Account:[id number] Date of Sevice: 09/11/2017 Exam type: CHEST PA AND LAT History: Pleural effusion and pneumothorax Comparison: September 09, 2017. Findings: There is been an increase in the right pleural effusion which now appears small to moderate. This ap pears to be partially loculated in the minor fissure. There has been a decrease in the right basilar pneumothorax. There has been minimal increase in the right apical pneumothorax measures approximate ly 10% 15%. There is no mediastinal shift. Small left pleural effusion appears unchanged. The card iac silhouette is normal in size. Implanted right IJ port again seen. Bilateral ureteral stents are again identified although incompletely imaged IMPRESSION: 1. There is been an increase in right pleural effusion which now appears small to moderate Small left pleural effusion unchanged There is been a decrease in the right basilar pneumothorax with a minimal increase in the right apica l pneumothorax measuring approximately 10-15%. There is no mediastinal shift Report Dictated By: Beth Henriquez MD at 09/11/2017 3:36 PM Report E-Signed By: Beth Henriquez MD at 09/11/2017 3:39 PM WSN:[email or web address]
== END ==
LOC: RAD 13:16
PROVIDERS: ATTEND Physician Assistant
DX: J93.9 Pneumothorax, unspecified (principal); J91.8 Pleural effusion in other conditions classified elsewhere
CPT/HCPCS: 71046

== ENCOUNTER → 2017-09-15 | Outpatient (CLI) | payer BC ==
--- NOTE | 2017-09-15 09:27 | RADIOLOGY IMAGING REPORT ---
FACILITY: [facility] PATIENT NAME: Shelby Cabrera : 1960 MR: [id number] V: [id number] EXAM DATE: ORDERING PHYSICIAN: ADDIE DOLAN TECHNOLOGIST: Location: [facility] Patient: Shelby Cabrera : 1960 Visit/Account:[id number] Date of Sevice: 09/15/2017 Technique: CHEST PA AND LAT HISTORY: Pleural effusion Comparison studies: Chest radiographs September 11, 2017 FINDINGS: Redemonstrated is a right sided pleural effusion which has increased in size and now measur es moderate. Also noted is an unchanged small left pleural effusion. There is associated passive at electasis of the respective pleural effusions. A small right apical pneumothorax is present. The ca rdiomediastinal silhouette as well as right chest port are unchanged. Surgical tubing is partially v isualized overlying the abdomen. IMPRESSION: 1. Intervally increased in size right-sided pleural effusion now measuring moderate. 2. Small left pleural effusion as well as small apical right pneumothorax measuring less than 10%. 3. Passive atelectasis of the respective effusions. Report Dictated By: Pablito Crump DO at 09/15/2017 9:18 AM Report E-Signed By: Pablito Crump DO at 09/15/2017 9:22 AM WSN:[email or web address]
== END ==
LOC: RAD 08:47
PROVIDERS: ATTEND Physician Assistant
DX: J98.11 Atelectasis (principal); J91.8 Pleural effusion in other conditions classified elsewhere
CPT/HCPCS: 71046

== ENCOUNTER 2017-10-06 00:36 | Day surgery (SDC) | payer BC ==
[~2017-10-06] VITALS: Ht 158.8 cm; Wt 61.2 kg
[2017-10-06 06:19] VITALS: BP 143/92
[2017-10-06] MEDS ORDERED: LIDOCAINE/SOD BICARB 8.4% SYR ID ONE (06:30)
[2017-10-06] MEDS ORDERED: MIDAZOLAM 2 MG/2 ML VIAL IVP PRN (06:30)
[2017-10-06] MEDS ORDERED: FAMOTIDINE 20 MG TAB PO ONE (06:30)
[2017-10-06] MEDS ORDERED: ceFAZolin(*) 1 GM VIAL 1 GM in NS(*) 0.9% 100 ML ADDVANT BAG 100 ML IV ONE (06:30)
[2017-10-06] MEDS ORDERED: NORMOSOL R SOLN(*) 1000 ML BAG 1,000 ML IV PRN (06:30)
[2017-10-06] MEDS ORDERED: IOPAMIDOL-200 50 ML VIAL IS ONE (06:57)
[2017-10-06] MEDS ORDERED: fentaNYL CITR 100 MCG/2 ML AMP ONE (07:09)
[2017-10-06] MEDS ORDERED: PROPOFOL EMUL(*) 10MG/ML 20 ML 20 ML ONE (07:09)
[2017-10-06] MEDS ORDERED: LIDOCAINE MPF 1% 5 ML VIAL ONE (07:09)
[2017-10-06] MEDS ORDERED: DEXAMETHASONE SOD 4 MG/ML VIAL ONE (07:09)
[2017-10-06] MEDS ORDERED: ONDANSETRON 4 MG/2 ML VIAL ONE (07:09)
[2017-10-06] MEDS ORDERED: KETAMINE HCL 200 MG/20 ML MDV ONE (07:16)
[2017-10-06] MEDS ORDERED: WATER FOR IRRIG,STERILE 3000ML IR ONE (07:57)
--- NOTE | 2017-10-06 08:28 | RADIOLOGY IMAGING REPORT ---
FACILITY: [facility] - [place] PATIENT NAME: Shelby Cabrera : 1960 MR: [id number] V: [id number] EXAM DATE: ORDERING PHYSICIAN: CHAVEZ LIMA TECHNOLOGIST: Location: [facility] - [place] Patient: Shelby Cabrera : 1960 Visit/Account:[id number] Date of Sevice: 10/06/2017 C-ARM FLUORO 1 HR HISTORY: LATHE PULLER Intraoperative continuing education director films demonstrates bilateral ureteral stents replaced under fluoroscopic guidanc e. IMPRESSION: 1. Fluoroscopy provided for stent exchange. Fluoroscopic time of 0.3 minutes. AK 2.54mGy Report Dictated By: Bk Chow MD at 10/06/2017 8:22 AM Report E-Signed By: Bk Chow MD at 10/06/2017 8:23 AM WSN:[email or web address]
[2017-10-06] MEDS ORDERED: FAMO-67 PO (09:13)
[2017-10-06] MEDS ORDERED: ACET-3017 PO (09:14)
[2017-10-06] MEDS ORDERED: PHEN200T32 PO (09:15)
[2017-10-06] MEDS ORDERED: CIPR-344 PO (09:17)
--- NOTE | 2017-10-06 10:06 | OPERATIVE REPORT 1 ---
EVENT DATE: October 06, 2017 SURGEON: Jem Flowers MD ANESTHESIOLOGIST: Slick Burgess MD ANESTHESIA: General PREOPERATIVE DIAGNOSIS 1. Bilateral renal obstruction secondary to metastatic ovarian cancer. 2. Bilateral ureteral stent placement. POSTOPERATIVE DIAGNOSIS 1. Bilateral renal obstruction secondary to metastatic ovarian cancer. 2. Bilateral ureteral stent placement. PROCEDURE PERFORMED 1. Cystourethroscopy. 2. Bilateral ureteral stent removal. 3. Bilateral ureteral stent replacement. 4. Collection of urine for culture and sensitivity. DESCRIPTION OF PROCEDURE Under general anesthetic the patient was prepped and draped in the extended lithotomy position. A 21 panendoscope was admitted through the urethra and into the bladder. Urine was obtained for culture and sensitivity. The bladder showed 2-3+ trabeculation. Trigone and ureteral orifices were hypodeveloped in my opinion. The stents were emanating from both ureteral orifices. The stents were removed. The access catheter, guidewire and stent were placed up the left collecting system. X-ray confirmed satisfactory positioning. Access catheter, guidewire and stent were placed up the right collecting system and again x-ray confirmed satisfactory positioning. The bladder was drained. Of note, there was no evidence of acute cystitis. The patient tolerated the procedure satisfactorily and returned to the recovery room in satisfactory condition. INDICATION FOR THE PROCEDURE This is a 56-year-old white female with metastatic ovarian cancer. She is undergoing continuous chemotherapy. The patient recently transferred her care to Dr. Mandy Chamorro, [facility] Solderer/Oncologist. Follow up CT-IVP showed probable shrinkage of the obstructing periureteral lymph nodes that had been present since the onset of her obstructive uropathy and treatment with ureteral stents. She has done well. She has only had one interval infection throughout the time period. By history, the patient states she recently had 5 days of antibiotic treatment for a urinary tract infection. Reexplained that chronic, indwelling stents are associated with microscopic hematuria and pyuria. Options were discussed pretreatment with the patient and since she has had only her first CT showing some periureteral lymph nodes, she wishes to be followed for a few more months to make sure that that is the case. The patient requested replacement of the stents, that has been accomplished. See operative note for details. DISCHARGE INSTRUCTIONS The patient will be ready for discharge home when alert and functional. She is to force fluids, 2 liters per day. Activities are as tolerated. She is to continue her usual medications. She will be discharged on Cipro therapy for a few days, Pepcid, Pyridium, and Tylenol #3 therapy. Plan followup on October 14, 2017. [place]
== END 2017-10-06 09:35 | disposition home or self-care (01) ==
LOC: OR 00:36
DX: N28.89 Other specified disorders of kidney and ureter (principal)
CPT/HCPCS: 52332; 76000; 87088; C2617; J0690; J1100; J2001; J2405; J2704; J3010; J3490; J7050; Q9966

== ENCOUNTER → 2017-10-29 | Outpatient (CLI) | payer BC ==
[~2017-10-29] MED LIST changes: +ACET-3017 PO; +CIPR-344 PO
--- NOTE | 2017-10-29 11:34 | RADIOLOGY IMAGING REPORT ---
FACILITY: [facility] - [place], [place] PATIENT NAME: Shelby Cabrera : 1960 MR: [id number] V: [id number] EXAM DATE: ORDERING PHYSICIAN: ADDIE DOLAN TECHNOLOGIST: Location: [facility] - [place] Patient: Shelby Cabrera : 1960 Visit/Account:[id number] Date of Sevice: 10/29/2017 Chest 2 views: HISTORY: No lung sounds to bilateral lower lobes, shortness of breath. COMPARISON: 09/15/2017 FINDINGS: Frontal and lateral chest: There are small bilateral pleural effusions right greater than l eft. Catheter is placed in the right inferior pleural space and effusion is decreased compared to pr evious. Left pleural effusion is not significant change. Patchy opacities present in the right lung base, atelectasis versus infiltrate, this is also decreased compared to the prior study. Heart and mediastinal contours are within normal limits. Pulmonary vasculature is normal. There is no pneumothorax. Right chest port is unchanged. Bilateral nephroureteral stents are noted. Osseous structures are unremarkable for age. IMPRESSION: 1. Small bilateral pleural effusions, right slightly larger than left. Right pleural effusion is de creased in size compared to previous, left is unchanged. 2. Interval placement of a right pleural catheter which is in the inferior right pleural space. 3. Patchy right basilar airspace opacity, atelectasis versus infiltrate, there is improved aeration of the right lung compared to previous. Report Dictated By: Ana Weaver MD at 10/29/2017 11:25 AM Report E-Signed By: Ana Weaver MD at 10/29/2017 11:29 AM WSN:[id number]
== END ==
LOC: RAD 09:18
PROVIDERS: ATTEND Physician Assistant
DX: J90 Pleural effusion, not elsewhere classified (principal)
CPT/HCPCS: 71046

== ENCOUNTER → 2017-11-13 | Outpatient (CLI) | payer BC ==
--- NOTE | 2017-11-13 11:14 | RADIOLOGY IMAGING REPORT ---
FACILITY: [facility] - [place] PATIENT NAME: Shelby Cabrera : 1960 MR: [id number] V: [id number] EXAM DATE: ORDERING PHYSICIAN: ADDIE DOLAN TECHNOLOGIST: Location: [facility] - [place] Patient: Shelby Cabrera : 1960 Visit/Account:[id number] Date of Sevice: 11/13/2017 CHEST PA AND LAT Additional pertinent History: Pleural effusion COMPARISON STUDIES: 10/29/2017 FINDINGS: Support lines and catheters: Right chest [id number] catheter. Lungs and Pleura: Bilateral pleural effusions. Reidentified is the pleural catheter in the right lo wer lung. Size and appearance of the effusion and adjacent atelectasis volume loss similar to the pr evious study. Left effusion similar appearance. Heart and vasculature: Negative. Darlene and Mediastinum: Negative. Bones and Chest wall: Negative. Upper Abdomen: Negative. IMPRESSION: 1. 1. Bilateral pleural effusions. Stable in appearance when compared to previous study. Patchy a telectatic lung changes in the right lower lung similar to the previous study. Report Dictated By: Bk Chow MD at 11/13/2017 11:09 AM Report E-Signed By: Bk Chow MD at 11/13/2017 11:11 AM WSN:[email or web address]
== END ==
LOC: RAD 10:13
PROVIDERS: ATTEND Physician Assistant
DX: J91.8 Pleural effusion in other conditions classified elsewhere (principal)
CPT/HCPCS: 71046

== ENCOUNTER → 2017-11-27 | Outpatient (CLI) | payer BC ==
--- NOTE | 2017-11-27 11:24 | RADIOLOGY IMAGING REPORT ---
FACILITY: [facility] PATIENT NAME: Shelby Cabrera : 1960 MR: [id number] V: [id number] EXAM DATE: ORDERING PHYSICIAN: ADDIE DOLAN TECHNOLOGIST: Location: [facility] - [place] Patient: Shelby Cabrera : 1960 Visit/Account:[id number] Date of Sevice: 11/27/2017 2 VIEWS CHEST INDICATION: Follow-up effusion COMPARISON: 11/13/2017 FINDINGS: Cardiomediastinal silhouette: Heart size within normal limits. Lungs: There are bibasilar opacities of both lungs. Bilateral effusions, right greater than left, not significantly changed. Bones and soft tissues: Right chest port intact, left pigtail catheter partially viewed. There is a right-sided chest tube. IMPRESSION: 1. Stable chest; unchanged bilateral pleural effusion with bibasilar opacities, likely atelectasis, consolidation not excluded. 2. Support devices as above. Report Dictated By: Deo Irene MD at 11/27/2017 11:18 AM Report E-Signed By: Deo Irene MD at 11/27/2017 11:20 AM WSN:[email or web address]
== END ==
LOC: RAD 10:55
PROVIDERS: ATTEND Physician Assistant
DX: J90 Pleural effusion, not elsewhere classified (principal); Z95.828 Presence of other vascular implants and grafts
CPT/HCPCS: 71046

== ENCOUNTER → 2017-12-03 | Outpatient (CLI) | payer BC ==
[~2017-12-03] MED LIST changes: +IOPAMIDOL 76% 75 ML INFUS BTL 75 ML ONE; +LEVO50TA86 PO
--- NOTE | 2017-12-03 11:49 | RADIOLOGY IMAGING REPORT ---
FACILITY: [facility] - [place] PATIENT NAME: Shelby Cabrera : 1960 MR: [id number] V: [id number] EXAM DATE: ORDERING PHYSICIAN: REYNALDO GONZALEZ TECHNOLOGIST: Location: [facility] [place] Patient: Shelby Cabrera : 1960 Visit/Account:[id number] Date of Sevice: 12/03/2017 CHEST/AB/PELV W/CONTRAST HISTORY: Stage III ovarian cancer, hypoxia ADDITIONAL HISTORY: None. TECHNIQUE: Following administration of IV contrast axial images acquired through the chest abdomen a nd pelvis during the portal venous phase. Coronal and sagittal reformatting was also performed. Dose Lowering Technique One of the following dose optimization techniques was utilized in the performance of this exam: Autom ated exposure control; adjustment of the mA and/or kV according to the patient's size; or use of an i terative reconstruction technique. Specific details can be referenced in the facility's radiology C T exam operational policy. CONTRAST: 85 mL Isovue-370 COMPARISON: CTA of the chest August 12, [address] of the abdomen and pelvis November 02, 2016 FINDINGS: CHEST: Lungs/Pleura: There is a 9 mm vague groundglass opacity lateral aspect of the right upper lobe best seen on image 83 of series 4 There is a 2 mm noncalcified nodule lateral aspect of the right upper lobe There is mild interstitial prominence in the posterior inferior aspect right upper lobe with coarse l inear stranding seen anteriorly in the right middle lobe. There is a small posterior layering right pleural effusion with adjacent slightly irregular pleural thickening and compressive atelectasis in t he inferior right lower lobe and extensive peribronchial thickening throughout the right lower lobe. There is an indwelling right pleural catheter the distal tip projects over the anterior aspect the r ight lower thorax There is a moderate posterior layering left pleural effusion with a small amount compressive atelecta sis left lower lobe Mediastinum/lymph nodes: No pathologically enlarged mediastinal lymph nodes are identified Heart/vessels: There is an implanted right IJ port distal tip in superior vena cava. Bones/soft tissues: No aggressive appearing bone lesions are seen ABDOMEN AND PELVIS: Hepatobiliary: Cholelithiasis although no evidence of bony ductal dilatation Spleen: Negative. Pancreas: Negative. Adrenals: Negative. Kidneys ureters and bladder : There are bilateral double pigtail ureteral stents. There is mild to m oderate hydronephrosis on the right. Also noted is a diminished nephrogram on the right relative to the left suggesting partial obstruction. There is diffuse thickening of the left ureter which is sim ilar to the prior CT . Bladder is decompressed therefore not ideally evaluated Genitalia: Postsurgical changes from hysterectomy and probable bilateral oophorectomy. GI: There is diverticulosis left-sided colon although no CT evidence of acute diverticulitis Vessels/spaces/nodes: Left paracolic lymph nodes appear decreased in size now measuring 1.3 x 0.9 cm previously 1.8 x 1.1 cm. These now appear to be partially calcified is an additional left paracolic lymph node measuring 9 x 8 mm previously 5 x 6 mm best seen on image 127 Previously noted left common iliac lymph node now measures 3.2 x 2.4 cm previously 2.2 x 1.3 cm best seen on image 133 Left common iliac lymph node now measures 1.4 x 0.7 cm previously measuring 1.3 x 1 cm Peritoneal implants in the anterior lower pelvis have increased in size. There is an additional new implant abutting the serosal surface of the distal sigmoid colon measuring 1.6 x 1.8 cm Bones/soft tissues: No aggressive appearing bone lesions are seen Additional findings: None pertinent. IMPRESSION: A 9 mm vague groundglass opacity lateral aspect of the right upper lobe and mild interstitial promine nce in the posterior inferior aspect right upper lobe are new since the prior study may represent an acute infectious/inflamma ory process. Also noted is a 2 mm noncalcified nodule lateral aspect right upper lobeSmall posterior layering righ t pleural effusion is present with an indwelling catheter and slightly irregular pleural thickening l ikely related to metastatic disease. Compressive atelectasis in the inferior right lower lobe and ex tensive peribronchial thickening throughout the right lower lobe appears increased Moderate posterior layering left pleural effusion and a small amount compressive atelectasis left low er lobe Cholelithiasis There are bilateral double pigtail ureteral stents. There is a mild to moderate hydronephrosis on th e right which is increased when compared the prior study. There is a diminished nephrogram on the ri ght relative to the left also suggesting partial obstruction Diffuse thickening of the left ureter which appears similar to the prior study Diverticulosis left-sided colon Mixed response to therapy in regards to the retroperitoneal adenopathy as detailed above Increasing peritoneal implants in the pelvis Report Dictated By: Beth Henriquez MD at 12/03/2017 11:19 AM Report E-Signed By: Beth Henriquez MD at 12/03/2017 11:45 AM WSN:[id number]
== END ==
LOC: CT 00:32
PROVIDERS: ATTEND Obstetrics & Gynecology Gynecologic Oncology
DX: J90 Pleural effusion, not elsewhere classified (principal); R91.8 Other nonspecific abnormal finding of lung field; Z95.828 Presence of other vascular implants and grafts; K80.20 Calculus of gallbladder without cholecystitis without obstruction; Z90.710 Acquired absence of both cervix and uterus; Z90.79 Acquired absence of other genital organ(s); Z90.722 Acquired absence of ovaries, bilateral; K57.30 Diverticulosis of large intestine without perforation or abscess without bleeding
CPT/HCPCS: 71260; 74177; Q9967

== ENCOUNTER 2017-12-04 21:57 | Inpatient (IN) | payer BC ==
[~2017-12-04] VITALS: Ht 157.5 cm; Wt 60.8 kg
[~2017-12-04 21:57] MED LIST changes: -IOPAMIDOL 76% 75 ML INFUS BTL 75 ML ONE; -LEVO50TA86 PO
--- NOTE | 2017-12-04 21:59 | ER Report ---
History and Physical Time Seen By MD: 21:59 HPI/ROS CHIEF COMPLAINT: Fever, shortness of breath HISTORY OF PRESENT ILLNESS: 57-year-old female with metastatic ovarian cancer. She is followed by oncology down in [place]. She was seen yesterday for a CAT scan with contrast chest, abdomen and pelvis. There was the appearance of an infiltrate in the right upper lobe suggesting pneumonia. She is normally on 2 L by nasal cannula. Tonight she is much more short of breath. She arrives here not wearing her oxygen with saturation of 52% on room air. Rapidly improves after supplemental O2 was applied at 3 L by nasal cannula. Her sats come up to 90. He is documented to have a fever 101.6 on arrival here. She has a pleural effusion that is malignant. She has an indwelling pleural catheter REVIEW OF SYSTEMS: Respiratory: As above Cardiovascular: No chest pain, no palpitations. Gastrointestinal: No vomiting, no abdominal pain. Musculoskeletal: No back pain. Allergies: Coded Allergies: carboplatin (Verified Allergy, Severe, RASH, 12/04/17) HEART RATE AND BLOOD PRESSURE ELEVATION ketorolac (Verified Allergy, Mild, RASH, 12/04/17) face and ears fell tingly and she felt like she was getting a rash. Home Meds Reported Medications Levothyroxine Sodium (LEVOTHYROXINE SODIUM) 25 Mcg Tablet, 25 MCG PO QDAY 04/07/15 Discontinued Reported Medications Levothyroxine Sodium (LEVOTHYROXINE SODIUM) 50 Mcg Tablet, 25 MCG PO QDAY, TAB 12/04/17 Ciprofloxacin Hcl 500 Mg Tab (CIPRO 500 MG TAB) 500 Mg Tablet, 500 MG PO BID, #15 10/06/17 Phenazopyridine Hcl (PHENAZOPYRIDINE HCL) 200 Mg Tablet, 200 MG PO TID PRN for BURNING WITH URINATION, #20 TAB 10/06/17 Acetaminophen With Codeine # 3 (TYLENOL WITH CODEINE #3 TABLET) 1 Each Tablet, 1 EACH PO Q4-6H PRN for PAIN, #20 TAB 10/06/17 Famotidine (FAMOTIDINE) 20 Mg Tablet, 20 MG PO BID, #20 TAB 10/06/17 Oxaliplatin (OXALIPLATIN) 50 Mg Vial, 50 MG IV Q3WK, VIAL 07/22/17 Melatonin (MELATONIN) 3 Mg Tablet, 3 MG PO QHS 04/29/17 Cholecalciferol (Vitamin D3) (VITAMIN D3) Unknown Strength Tablet, PO QDAY, TAB 04/29/17 Ubidecarenone (COQ-10) 100 Mg Capsule, 100 MG PO BID, CAPSULE 04/29/17 Reviewed Nurses Notes: Yes Old Medical Records Reviewed: Yes Hx Smoking: Yes (CHEWED [place] FOR A COUPLE OF YEARS OVER 30 YRS. AGO.) Smoking Status: Former Smoker Exposure to Second Hand Smoke?: Yes Hx Substance Use Disorder: No Hx Alcohol Use: Yes (NOT WHILE ON CHEMO) Constitutional Vital Sign - Last 24 Hours 12/04/17 12/04/17 12/04/17 12/04/17 21:57 22:01 22:02 22:12 Temp 100.6 Pulse ??? 133 Resp 28 B/P (MAP) 207/112 (143) 207/112 Pulse Ox 63 O2 Delivery Room Air O2 Flow Rate 3.0 12/04/17 12/04/17 12/04/17 12/04/17 22:12 22:17 22:27 22:30 Pulse 123 124 Resp 18 14 B/P (MAP) 196/90 (125) 182/87 (118) Pulse Ox 91 93 12/04/17 12/04/17 12/04/17 12/04/17 22:42 22:47 23:00 23:02 Pulse 115 ??? 115 Resp 26 24 B/P (MAP) 177/89 (118) Pulse Ox 95 12/04/17 12/04/17 12/04/17 12/04/17 23:17 23:30 23:30 23:30 Pulse 114 114 Resp 18 22 B/P (MAP) 161/89 (113) Pulse Ox 94 O2 Delivery Nasal Cannula O2 Flow Rate 2.0 12/04/17 12/04/17 12/04/17 12/04/17 23:32 23:37 23:37 23:52 Pulse 115 113 113 118 Resp 23 19 18 23 12/05/17 12/05/17 12/05/17 12/05/17 00:00 00:07 00:22 00:27 Pulse 117 118 115 Resp 20 13 17 B/P (MAP) 156/88 (110) Physical Exam Hypertension, tachycardic, fever 101.6, pulse ox 52% on room air, Baseline O2 saturation on 3 L is 90%. General Appearance: The patient is alert, has no immediate need for airway protection and no current signs of toxicity. Skin slightly pale, warm and dry HEENT: Pupils equal and round no injection. TMs normal, oropharynx with mild erythema, no exudate, mucous. Membranes are dry Respiratory: Chest is non tender, lungs are clear to auscultation. Decreased breath sounds bilateral bases. No Rales Cardiac: regular rate and rhythm, no murmur Gastrointestinal: Abdomen is soft and non tender, no masses, bowel sounds normal. Musculoskeletal: Neck: Neck is supple and non tender. Extremities have full range of motion and are non tender. No edema, no calf tenderness Skin: No rashes or lesions. DIFFERENTIAL DIAGNOSIS: After history and physical exam differential diagnosis was considered for adult fever including but not limited to viral syndromes including influenza, urinary tract infection, pneumonia and sepsis. Medical Decision Making Data Points Result Diagram: 12/07/17 0807 12/07/17 0807 Laboratory Hematology Test 12/04/17 22:12 12/04/17 22:51 Lactate 1.4 mmol/L (0.7-2.1) Troponin I < 0.012 ng/ml B-Type Natriuretic Peptide 36 pg/ml (0-100) Influenza Virus Type A (PCR) Negative (NEGATIVE) Influenza Virus Type B (PCR) Negative (NEGATIVE) Urine Color Yellow Urine Clarity Slightly-cloudy Urine pH 6.0 pH (4.8-9.5) Urine Specific [place] 1.010 Urine Protein 100 mg/dL (NEGATIVE) Urine Glucose (UA) Negative mg/dL (NEGATIVE) Urine Ketones Negative mg/dL (NEGATIVE) Urine Blood Large (NEGATIVE) Urine Nitrite Negative (NEGATIVE) Urine Bilirubin Negative (NEGATIVE) Urine Urobilinogen Negative mg/dL (0.2-1.9) Urine Leukocyte Esterase Large (NEGATIVE) Urine RBC 302 /HPF (0-2/HPF) Urine WBC 110 /HPF (0-5/HPF) Urine Squamous Epithelial Cells Many /LPF (</=FEW) Urine Transitional Epithelial Cells Moderate /LPF (NONE-FEW) Urine Bacteria Few /HPF (NONE-FEW) Urine Mucus None /HPF (NONE-FEW) Chemistry Test 12/04/17 22:12 12/04/17 22:51 Lactate 1.4 mmol/L (0.7-2.1) Troponin I < 0.012 ng/ml B-Type Natriuretic Peptide 36 pg/ml (0-100) Influenza Virus Type A (PCR) Negative (NEGATIVE) Influenza Virus Type B (PCR) Negative (NEGATIVE) Urine Color Yellow Urine Clarity Slightly-cloudy Urine pH 6.0 pH (4.8-9.5) Urine Specific [place] 1.010 Urine Protein 100 mg/dL (NEGATIVE) Urine Glucose (UA) Negative mg/dL (NEGATIVE) Urine Ketones Negative mg/dL (NEGATIVE) Urine Blood Large (NEGATIVE) Urine Nitrite Negative (NEGATIVE) Urine Bilirubin Negative (NEGATIVE) Urine Urobilinogen Negative mg/dL (0.2-1.9) Urine Leukocyte Esterase Large (NEGATIVE) Urine RBC 302 /HPF (0-2/HPF) Urine WBC 110 /HPF (0-5/HPF) Urine Squamous Epithelial Cells Many /LPF (</=FEW) Urine Transitional Epithelial Cells Moderate /LPF (NONE-FEW) Urine Bacteria Few /HPF (NONE-FEW) Urine Mucus None /HPF (NONE-FEW) Urinalysis Test 12/04/17 22:51 Urine Color Yellow Urine Clarity Slightly-cloudy Urine pH 6.0 pH (4.8-9.5) Urine Specific [place] 1.010 Urine Protein 100 mg/dL (NEGATIVE) Urine Glucose (UA) Negative mg/dL (NEGATIVE) Urine Ketones Negative mg/dL (NEGATIVE) Urine Blood Large (NEGATIVE) Urine Nitrite Negative (NEGATIVE) Urine Bilirubin Negative (NEGATIVE) Urine Urobilinogen Negative mg/dL (0.2-1.9) Urine Leukocyte Esterase Large (NEGATIVE) Urine RBC 302 /HPF (0-2/HPF) Urine WBC 110 /HPF (0-5/HPF) Urine Squamous Epithelial Cells Many /LPF (</=FEW) Urine Transitional Epithelial Cells Moderate /LPF (NONE-FEW) Urine Bacteria Few /HPF (NONE-FEW) Urine Mucus None /HPF (NONE-FEW) Microbiology Microbiology Date/Time Source Procedure Growth Status 12/04/17 22:35 Blood Peripheral Draw Blood Culture - Final Complete 12/04/17 22:35 Blood Culture - Final Strep Agalactiae Group B Complete 12/04/17 22:12 Blood Peripheral Draw Blood Culture - Final Complete 12/04/17 22:12 Blood Culture - Final Strep Agalactiae Group B Complete 12/04/17 22:51 Clean Catch Midstream Ur Urine Culture - Final Strep Agalactiae Group B Complete EKG/Imaging EKG Interpretation 12 lead EK Rhythm: Sinus tachycardia, rate 124 bpm [place]: normal QRS: normal ST segments: normal, no evidence of ischemia or dysrhythmia Imaging X-ray: Single view chest x-ray was obtained. I viewed the images myself on the PACS system. My interpretation of the images is: There is extensive infiltrate in the right lower lobe as well as a pleural effusion. There is an indwelling pleural catheter as well as support, comparison to previous chest x-ray dated 11/27/17. Interval development of infiltrate in the right lower lobe. CT scan from yesterday 12/03/17 reviewed COMPARISON: CTA of the chest August 12, [address] of the abdomen and pelvis November 02, 2016 FINDINGS: CHEST: Lungs/Pleura: There is a 9 mm vague groundglass opacity lateral aspect of the right upper lobe best seen on image 83 of series 4 There is a 2 mm noncalcified nodule lateral aspect of the right upper lobe There is mild interstitial prominence in the posterior inferior aspect right upper lobe with coarse linear stranding seen anteriorly in the right middle lobe. There is a small posterior layering right pleural effusion with adjacent slightly irregular pleural thickening and compressive atelectasis in the inferior right lower lobe and extensive peribronchial thickening throughout the right lower lobe. There is an indwelling right pleural catheter the distal tip projects over the anterior aspect the right lower thorax There is a moderate posterior layering left pleural effusion with a small amount compressive atelectasis left lower lobe Mediastinum/lymph nodes: No pathologically enlarged mediastinal lymph nodes are identified Heart/vessels: There is an implanted right IJ port distal tip in superior vena cava. Bones/soft tissues: No aggressive appearing bone lesions are seen ABDOMEN AND PELVIS: Hepatobiliary: Cholelithiasis although no evidence of bony ductal dilatation Spleen: Negative. Pancreas: Negative. Adrenals: Negative. Kidneys ureters and bladder : There are bilateral double pigtail ureteral stent s. There is mild to moderate hydronephrosis on the right. Also noted is a diminished nephrogram on the right relative to the left suggesting partial obstruction. There is diffuse thickening of the left ureter which is similar to the prior CT . Bladder is decompressed therefore not ideally evaluated Genitalia: Postsurgical changes from hysterectomy and probable bilateral oophorectomy. GI: There is diverticulosis left-sided colon although no CT evidence of acute diverticulitis Vessels/spaces/nodes: Left paracolic lymph nodes appear decreased in size now measuring 1.3 x 0.9 cm previously 1.8 x 1.1 cm. These now appear to be partially calcified is an additional left paracolic lymph node measuring 9 x 8 mm previously 5 x 6 mm best seen on image 127 Previously noted left common iliac lymph node now measures 3.2 x 2.4 cm previously 2.2 x 1.3 cm best seen on image 133 Left common iliac lymph node now measures 1.4 x 0.7 cm previously measuring 1.3 x 1 cm Peritoneal implants in the anterior lower pelvis have increased in size. There is an additional new implant abutting the serosal surface of the distal sigmoid colon measuring 1.6 x 1.8 cm Bones/soft tissues: No aggressive appearing bone lesions are seen Additional findings: None pertinent. IMPRESSION: A 9 mm vague groundglass opacity lateral aspect of the right upper lobe and mild interstitial prominence in the posterior inferior aspect right upper lobe are new since the prior study may represent an acute infectious/inflamma ory process. Also noted is a 2 mm noncalcified nodule lateral aspect right upper lobeSmall posterior layering right pleural effusion is present with an indwelling catheter and slightly irregular pleural thickening likely related to metastatic disease. Compressive atelectasis in the inferior right lower lobe and extensive peribronchial thickening throughout the right lower lobe appears increased Moderate posterior layering left pleural effusion and a small amount compressive atelectasis left lower lobe Cholelithiasis There are bilateral double pigtail ureteral stents. There is a mild to moderate hydronephrosis on the right which is increased when compared the prior study. There is a diminished nephrogram on the right relative to the left also suggesting partial obstruction Diffuse thickening of the left ureter which appears similar to the prior study Diverticulosis left-sided colon Mixed response to therapy in regards to the retroperitoneal adenopathy as detailed above Increasing peritoneal implants in the pelvis ED Course/Re-evaluation Clinical Indication for ER IV: Hydration, IV Access ED Course Patient was admitted to an examination room. H&P was done. The differential diagnoses was considered. Patient with fever and acute illness. She had a CAT scan yesterday, which showed new infiltrate in her lungs on the right side. She is very short of breath. Diagnostic evaluation is undertaken. She's pancultured. She does have renal stents in place. She also has a pleural vale ter in her chest for malignant pleural effusion. Patient's treated with IV fluid hydration, Tylenol. Her white blood cell counts that elevated. She may be immunosuppressed from her chemotherapy, which she received 3 weeks ago. Since lactate is elevated suggesting early sepsis. She also has findings of urinary tract infection. Her case is discussed with the hospitalist on-call, who accepts the patient for admission. 12/05/2017 12:22:40 am case discussed with Dr. Carloz Prado-Still Decision to Disposition Date: Dec 05, 2017 Decision to Disposition Time: 00:20 Depart Departure Latest Vital Signs Vital Signs Date Time Temp Pulse Resp B/P (MAP) Pulse Ox O2 Delivery O2 Flow Rate FiO2 12/05/17 00:27 115 17 12/05/17 00:00 156/88 (110) 12/04/17 23:30 94 Nasal Cannula 2.0 12/04/17 22:02 100.6 Impression: Primary Impression: Pneumonia Additional Impressions: UTI (urinary tract infection) Ovarian cancer Condition: Improved Disposition: Admitted from ER Referrals: ADDIE DOLAN PA-C (PCP) Problem Qualifiers Primary Impression: Pneumonia Pneumonia type: due to unspecified organism Laterality: right Lung location: middle lobe of lung Qualified Codes: J18.1 - Lobar pneumonia, unspecified organism Additional Impressions: UTI (urinary tract infection) Urinary tract infection type: acute cystitis Hematuria presence: with hematuria Qualified Codes: N30.01 - Acute cystitis with hematuria Ovarian cancer Laterality: left Qualified Codes: C56.2 - Malignant neoplasm of left ovary BJ CHAPPELL DO Dec 04, 2017 21:59
[2017-12-04] MEDS ORDERED: NS(*) 0.9% 1000 ML BAG 1,000 ML IV ONE (22:05)
[2017-12-04] MEDS ORDERED: ACETAMINOPHEN 325 MG TAB PO ONE (22:05)
[2017-12-04] MEDS ORDERED: LEVO50TA86 PO (22:07)
[2017-12-04 22:28] LABS: PLATELET COUNT, AUTOMATED 157 K/uL (150-450)
--- NOTE | 2017-12-04 22:53 | RADIOLOGY IMAGING REPORT ---
FACILITY: [facility] - [place] PATIENT NAME: Shelby Cabrera : 1960 MR: [id number] V: [id number] EXAM DATE: ORDERING PHYSICIAN: BJ CHAPPELL TECHNOLOGIST: Location: [facility] - [place], [place] Patient: Shelby Cabrera : 1960 Visit/Account:[id number] Date of Sevice: 12/04/2017 PORTABLE CHEST: Indication: Fever and dyspnea. Technique: A single frontal film was obtained. Comparison: 11/27/2017 Skeletal and soft tissue structures: Intact and unchanged. Heart and mediastinum: Stable. Lung castorena: No acute interval changes are identified. Pleural spaces: There are persistent bilateral effusions. Allowing for differences in radiographic te chnique and inspiratory effort, there has been no significant change. Impression: Persistent bilateral pleural effusions, without significant interval change. Report Dictated By: Rio Pelayo MD at 12/04/2017 10:44 PM Report E-Signed By: Rio Pelayo MD at 12/04/2017 10:48 PM WSN:[id number]
--- NOTE | 2017-12-04 23:01 | EKG ---
FACILITY: [facility] PATIENT NAME: HANNAH BOYKIN : [id number] MR: [id number] V: [id number] EXAM DATE: ORDERING PHYSICIAN: BJ CHAPPELL TECHNOLOGIST: YARA Test Reason : DYSPNEA Blood Pressure : / mmHG Vent. Rate : 124 BPM Atrial Rate : 124 BPM P-R Int : 150 ms QRS Dur : 072 ms QT Int : 310 ms P-R-T Axes : 042 061 012 degrees QTc Int : 445 ms Sinus tachycardia Borderline ECG When compared with ECG of 02-NOV-2016 10:01, T wave inversion now evident in Inferior leads Confirmed by Carloz Nelson ([id number]) on 12/04/2017 11:01:51 PM Referred By: TA Confirmed By:Carloz Cristina
[2017-12-04] MEDS ORDERED: ALBUTEROL/IPRATROPIUM 3 ML NEB NEB ONE (23:10)
[2017-12-05] VITALS (14 sets, daily range): BP systolic 120–201; BP diastolic 70–100; Ht 157.5 cm; Wt 60.8 kg
[2017-12-05] MEDS ORDERED: LEVOFLOXACIN 750 MG TAB PO SCH ×2 (00:30)
[2017-12-05] MEDS ORDERED: ALBUTEROL/IPRATROPIUM 3 ML NEB NEB PRN (00:30)
[2017-12-05] MEDS ORDERED: ONDANSETRON 4 MG/2 ML VIAL IVP PRN (00:30)
[2017-12-05] MEDS ORDERED: FLUSH 10 ML SYR IVP PRN (00:30)
[2017-12-05] MEDS ORDERED: INFLUENZA VIRUS VAC 0.5ML SYR IM ONLY ONE (00:30)
--- NOTE | 2017-12-05 00:52 | History & Physical ---
History of Present Illness Chief Complaint Dyspnea History of Present Illness 57F with PMHx of metastatic ovarian Ca, bilateral malignant pleural effusions. Presented with increased dyspnea and hypoxia. She reports increased SOB and was hypoxic on RA when she arrived in ER. Usually on 2L baseline she needed 3L to maintain O2 and improved to 2L after breathing treatment, she reports she has been increasingly SOA for weeks but it did get worse over last few days. She was febrile to 100.[address] scan for monitoring of cancer showed new inflammatory RUL ground glass opacity. CXR did not show any significant change from previous on 11.27.2017. Patient was admitted for breathing treatments and to monitor response to Abx. History Problems: (1) Hypothyroid Status: Chronic (2) Ovarian cancer Status: Chronic Home Meds Reported Medications Levothyroxine Sodium (LEVOTHYROXINE SODIUM) 25 Mcg Tablet, 25 MCG PO QDAY 04/07/15 Discontinued Reported Medications Levothyroxine Sodium (LEVOTHYROXINE SODIUM) 50 Mcg Tablet, 25 MCG PO QDAY, TAB 12/04/17 Ciprofloxacin Hcl (CIPRO) 500 Mg Tablet, 500 MG PO BID, #15 10/06/17 Phenazopyridine Hcl (PHENAZOPYRIDINE HCL) 200 Mg Tablet, 200 MG PO TID PRN for BURNING WITH URINATION, #20 TAB 10/06/17 Acetaminophen With Codeine # 3 (TYLENOL WITH CODEINE #3 TABLET) 1 Each Tablet, 1 EACH PO Q4-6H PRN for PAIN, #20 TAB 10/06/17 Famotidine (FAMOTIDINE) 20 Mg Tablet, 20 MG PO BID, #20 TAB 10/06/17 Oxaliplatin (OXALIPLATIN) 50 Mg Vial, 50 MG IV Q3WK, VIAL 07/22/17 Melatonin (MELATONIN) 3 Mg Tablet, 3 MG PO QHS 04/29/17 Cholecalciferol (Vitamin D3) (VITAMIN D3) Unknown Strength Tablet, PO QDAY, TAB 04/29/17 Ubidecarenone (COQ-10) 100 Mg Capsule, 100 MG PO BID, CAPSULE 04/29/17 Allergies: Coded Allergies: carboplatin (Verified Allergy, Severe, RASH, 12/04/17) HEART RATE AND BLOOD PRESSURE ELEVATION ketorolac (Verified Allergy, Mild, RASH, 12/04/17) face and ears fell tingly and she felt like she was getting a rash. Patient History: FH: CABG (coronary artery bypass surgery) FATHER FH: lung cancer MOTHER FHx: heart disease FATHER Hx Smoking: Yes (CHEWED [place] FOR A COUPLE OF YEARS OVER 30 YRS. AGO.) Smoking Status: Former Smoker Exposure to Second Hand Smoke?: Yes Caffeine Intake: Soda Caffeine/Cups Per Day: RARE Hx Alcohol Use: Yes (NOT WHILE ON CHEMO) Hx Substance Use Disorder: No Social Drug Use: Never Review of Systems All Systems Reviewed/Normal: Yes, Except as Noted Constitutional: Fever Respiratory: Shortness of Breath, Cough Exam Vital Signs Vital Signs Date Time Temp Pulse Resp B/P (MAP) Pulse Ox O2 Delivery O2 Flow Rate FiO2 12/05/17 01:06 90 Nasal Cannula 2.5 12/05/17 01:06 99.8 132 28 183/93 (123) General Appearance: Alert, Awake, Other (febrile) Neuro: No Gross deficits Eyes: PERRLA ENT: Normal Neck: No Masses Cardiovascular: Other (tachycardic) Respiratory: Clear to Auscultation (tachypneic) GI: Abd Soft and Non-Tender Musculoskeletal: No Weakness/Pain Extremities: Soft and Non Tender, Warm, Pulses, Perfused; No Edema Integumentary: Skin Intact without Lesion / Mass Psych: Alert & Oriented X3 (mildly anxious) Medical Decision Making Data Points Result Diagram: 12/04/17220912/04/172211 EKG / Imaging EKG Interpretation Sinus tachycardia Monitor Interpretation: Sinus Tachycardia Assessment and Plan Problems: (1) Pneumonia Status: Acute Assessment & Plan: Febrile, increased O2 demands, with opacity on CT chest from 12.03.2017. Considered PE, CT scan was with contrast and would have likely noted large PE, d-dimer not diagnostic given past results very elevated with negative CTA. Wells score low risk, could consider CTA if not improving with Abx. Will begin empiric levofloxacin for CAP and monitor, Duoneb breathing treatments. Already back to baseline O2 on arrival to floor. (2) Hypothyroid Status: Chronic Assessment & Plan: Continue chronic levothyroxine. (3) Ovarian cancer Status: Chronic Assessment & Plan: Hx malignant pleural effusions, drains in place. No change in effusions on imaging. Venous Thromboembolism Antithrombotics Is Pt On Any Antithrombotics?: Yes Exam Sepsis Risk: Possible Sepsis Risk Problem Qualifiers (1) Pneumonia: Pneumonia type: due to unspecified organism Laterality: right (2) Ovarian cancer: Laterality: left Qualified Codes: C56.2 - Malignant neoplasm of left ovary ANITA MARK DO Dec 05, 2017 00:51
[2017-12-05] MEDS ORDERED: hydrALAZINE HCL 20 MG/ML VIAL IVP PRN ×2 (01:30→03:20)
[2017-12-05] MEDS: NS(*) 0.9% 1000 ML BAG 1,000 ML IV PRN ×2 (02:44→21:12)
[2017-12-05 05:55] LABS: PLATELET COUNT, AUTOMATED 116 K/uL (150-450)
--- NOTE | 2017-12-05 08:45 | Antimicrobial Stewardship ---
Antimicrobial Stewardship Empiricly appropriate: Yes Support empiric regimen: Yes Approriate Cultures done: Yes (Blood Cx, Urine Cx pending ) Renal/Hepatic dosing: Yes Comment Recommend levofloxacin 750mg po Q48H based on CrCl ~43mL/min. Clinically stable/improving: Yes IV to PO Opportunity: Yes Comment Currently on oral antibiotics, continue oral levofloxacin Determine cumulative duration: Day 1 12/05/17 Determine standard duration: 5 days for CAP Comment 57 yo F presented with SOB, cough, fever. Tmax 100.6, wbc wnl, chest xray with effusions bilaterally. Pt has a history of ovarian cancer followed by oncology in [place], had a CT that showed pneumonia (outside CT) arrived to ED with an oxygen sat of 52% on room air. Started on Levofloxacin 750 mg po daily. CrCl is ~43mL/min adjust dose to: levofloxacin 750mg po Q48H. Continue treatment for 5 days to complete course for CAP. Gerri Royal, PharmD, BCOP GERRI ROYAL Dec 05, 2017 08:45
[2017-12-05] MEDS ORDERED: LISINOPRIL 5 MG TAB PO SCH (09:00)
[2017-12-05] MEDS: ENOXAPARIN 40 MG/0.4ML SYR SC SCH (09:01)
[2017-12-05] MEDS ORDERED: PROCHLORPERAZINE MAL 5 MG TAB PO PRN (09:15)
--- NOTE | 2017-12-05 10:21 | Hospitalist Progress Note ---
Subjective Progress Notes Subjective This patient was admitted for pneumonia. She had no acute events overnight. Patient Complains of: Cardiovascular: No: Chest Pain Respiratory: No: Shortness of Breath Physical Exam Vital Signs Date Time Temp Pulse Resp B/P (MAP) Pulse Ox O2 Delivery O2 Flow Rate FiO2 12/05/17 09:18 149/78 (101) 12/05/17 09:01 98.5 123 32 92 Nasal Cannula 2.0 Intake and Output 12/05/17 06:59 Intake Total 1300 ml Balance 1300 ml Intake Oral 300 ml IV Total 1000 ml # Voids 2 Cardiovascular: Regular Rate and Rhythm Respiratory: Clear to Auscultation Result Diagram: 12/05/17 0530 12/05/17 0530 Item Value Date Time Blood Culture - Final Resulted 12/04/172234 Blood Peripheral Draw Blood Culture - Final Resulted 12/04/172211 Blood Peripheral Draw Monitor Interpretation: Sinus Tachycardia Assessment and Plan Problems: (1) Bacterial pneumonia Assessment & Plan: She did present with increased shortness of breath and fe lilliam. She required IV hydralazine overnight. (2) Anemia Assessment & Plan: Her Hgb has decreased and she is tachycardic. We will transfuse 2 units of red cells today. (3) Pleural effusion, bilateral Assessment & Plan: She does have bilateral pleural effusions. There is a preexisting pigtail catheter on the right. (4) Hypothyroid Status: Chronic Assessment & Plan: She is on chronic treatment with levothyroxine. (5) Ovarian cancer Status: Chronic Assessment & Plan: She does have metastatic ovarian cancer, and has been receiving most of her care in [place]. There is peritoneal mets and metastasis to the lungs. Exam Sepsis Risk: Possible Sepsis Risk Problem Qualifiers (1) Ovarian cancer: Laterality: left Qualified Codes: C56.2 - Malignant neoplasm of left ovary MILY MORALES DO Dec 05, 2017 10:21
[2017-12-05] MEDS ORDERED: VANCOMYCIN(*) 1 GM VIAL 1 GM, VANCOMYCIN (*) 0.5 GM VIAL 0.5 GM in NS(*) 0.9% 250 ML BA... IVPB ONE (11:00)
[2017-12-05] MEDS ORDERED: NS(*) 0.9% 500 ML BAG 500 ML ONE (11:04)
[2017-12-05] MEDS: ACETAMINOPHEN 325 MG TAB PO PRN (13:42)
[2017-12-06 03:53] VITALS: BP 167/89
[2017-12-06 06:37] LABS: PLATELET COUNT, AUTOMATED 112 K/uL (150-450)
[2017-12-06] MEDS: ENOXAPARIN 40 MG/0.4ML SYR SC SCH (09:00)
[2017-12-06 09:12] VITALS: BP 157/86
[2017-12-06] MEDS: METOPROLOL SUCC XL 25 MG TABCR PO SCH (09:13)
[2017-12-06] MEDS: NS(*) 0.9% 1000 ML BAG 1,000 ML IV PRN ×2 (09:13→20:26)
[2017-12-06] MEDS: VANCOMYCIN 1 GM ADDVIAL 1 GM in NS(*) 0.9% 250 ML ADDVAN BAG 250 ML IVPB SCH ×2 (09:17→20:51)
[2017-12-06] MEDS: LEVALBUTEROL 1.25 MG/3 ML NEB NEB PRN ×2 (09:18→12:45)
--- NOTE | 2017-12-06 10:09 | Hospitalist Progress Note ---
Subjective Progress Notes Subjective The patient states her shortness of breath was better right after her blood transfusion yesterday, but she is short of breath with exertion today. Physical Exam Vital Signs Date Time Temp Pulse Resp B/P (MAP) Pulse Ox O2 Delivery O2 Flow Rate FiO2 12/06/17 09:21 105 16 12/06/17 09:15 97 Nasal Cannula 3.0 12/06/17 09:12 99.3 157/86 (109) Intake and Output 12/06/17 07:00 Intake Total 3533 ml Balance 3533 ml Intake Oral 680 ml IV Total 1853 ml Blood Product 1000 ml # Voids 8 General Appearance: Alert, Awake, No Acute Distress Neuro: No Gross deficits Cardiovascular: Regular Rate and Rhythm Respiratory: Clear to Auscultation GI: Soft and Non-Tender Extremities: Warm, Perfused Psych: Appropriate Mood & Affect Result Diagram: 12/06/1753712/06/17537 Monitor Interpretation: Sinus Tachycardia Assessment and Plan Problems: (1) Bacterial pneumonia Assessment & Plan: She did present with increased shortness of breath and fever. CXR shows bilateral pleural effusions. (2) Anemia Assessment & Plan: Her Hgb was decreased and she was tachycardic. She was transfused 2 units of red cells yesterday. She remains slightly tachycardic. (3) Pleural effusion, bilateral Assessment & Plan: She does have bilateral pleural effusions. There is a preexisting pigtail catheter on the right. Overall, per radiology, the pleural effusions appear unchanged from her previous film. (4) Hypothyroid Status: Chronic Assessment & Plan: She is on chronic treatment with levothyroxine. (5) Ovarian cancer Status: Chronic Assessment & Plan: She does have metastatic ovarian cancer, and has been receiving most of her care in [place]. There is peritoneal mets and metastasis to the lungs. Time Spent on Plan of Care: < 30 min Exam Sepsis Risk: No Definite Risk Problem Qualifiers (1) Ovarian cancer: Laterality: left Qualified Codes: C56.2 - Malignant neoplasm of left ovary FRANCINE SUAREZ MD Dec 06, 2017 10:09
[2017-12-06] MEDS ORDERED: VANCOMYCIN(*) 1 GM VIAL 1 GM, VANCOMYCIN (*) 0.5 GM VIAL 0.25 GM in NS(*) 0.9% 250 ML B... IVPB SCH (11:00)
--- NOTE | 2017-12-06 13:33 | Miscellaneous Provider Note ---
Miscellaneous Provider Note Note Urine and blood cultures with same bug. The patient has bilateral ureteral stents in place. She was asymptomatic in her lower urinary tract (no burning or pain with urination and no bladder discomfort). She has seen Dr. Flowers in the past but would like to switch to Dr. Hicks, the new [facility] urologist. As she had bacteremia, will keep her through the weekend on IV antibiotics and talk with Dr. Hicks on Friday about need for stent removal/replacement. The patient also has been receiving oxaliplatin in [place]. Her last dose was about 4 weeks ago. She has received 7 total courses of this med and has developed gradual onset of shortness of breath. Per [employer], oxaliplatin can cause, "Pulmonary toxicity (unexplained respiratory symptoms including nonproductive cough, dyspnea, crackles, pulmonary infiltrates)." She is swi tching to Dr. Cortez for ongoing care here in [place] through the [facility] and has an appointment with him on the 17 of December. She also had a CT of the chest/abdomen/pelvis on 12/03 which showed the followin. A 9 mm vague groundglass opacity lateral aspect of the right upper lobe and mild interstitial prominence in the posterior inferior aspect right upper lobe are new since the prior study may represent an acute infectious/inflammatory process. 2. Also noted is a 2 mm noncalcified nodule lateral aspect right upper lobe. Small posterior layering right pleural effusion is present with an indwelling catheter and slightly irregular pleural thickening likely related to metastatic disease. Compressive atelectasis in the inferior right lower lobe and extensive peribronchial thickening throughout the right lower lobe appears increased. The patient was told by her oncologist in [place] that she needed to see a fitter up to sort out if the CT findings were cancer versus infl ammation/infection. She was admitted to [facility] the following day so has not yet arranged for pulmonary consultation. FRANCINE SUAREZ MD Dec 06, 2017 13:33
--- NOTE | 2017-12-06 13:41 | Medical Nutrition Therapy ---
Nutrition Anthropometrics Height (Inches): 62.00 Height (Calculated Centimeters: 157.265216 Weight (Pounds): 134 Weight (Calculated Kilograms): 60.781 Darryn Nutrition Score: Probably Inadequate Darryn Nutrition Risk Score: 19 Dietary Referral Nutrition Risk Factors: Unplanned Loss >10lbs Nutrition Risk Comment: Physical Findings Physical Appearance: BMI 24 Skin Appearance Skin Appearance: Edema Edema Location Modifier: Edema Location: Type of Edema: Degree of Edema: Gastrointestinal Symptoms GI Symtoms: Nausea Tube Present: Bowel Sounds: Recent Bowel Pattern: Stool Characteristics: Nutritional Diagnosis Nutritional Risk Acuity 2: Unintended Wt Loss >5%/mo, Head/Neck/GI Cancer Nutritional Acuity: 2-Moderate Nutrition Diagnosis: Increased Nutrient Needs Nutrition Etiology: Physiological Causes Nutrition Problem/Etiology/Sym: Increased nutrient needs related to physiological causes as evidenced by severe anemia (hgb 8.7, hct 26.2) an 7.5% wt loss in 4 months. Energy Requirement: 1700 (0261-5375 (HB x 1.3-1.5)) Protein Requirement: 66 (66-78 (1.1-1.3 g/kg)) Fluid Requirement: 1800 (30 ml/kg) Diet Type: Diet as Tolerated [place]/REG Nutrition Intervention: Cont diet as ordered, Encourage intake, Between meal supplement Additional Diet Restrictions: OFFER NUTR SUPPLMENTS Nutrition Monitoring & Eval RD Patient Assessment Time: [address] Assessment Type: RD Assessment Patient Nutrition Acuity: 2-Moderate Follow Up Date: Dec 11, 2017 Nutritional Comment: 12/05 Pt admitted with pneumonia. Pt has hx of ovarian Ca with mets. Pt has 7.5% wt loss in 4 months with current wt of 134# and wt 07/23/17 of 145#. BG mildly elevated at 127-132, Alb 3.1, Hgb 8.7, Hct 26.2. Pt on regular diet but no intake reported at this time. Will offer nutr supplments to increase kcal and protein intake. BK 12/06 Pt reporting SOB on exertion. Intake of 100% and 75% of two meals and bites of others. Anemia resolved with 2 units of blood. Noting elevated liver enzymes, alk phos 434 and alb 3. Will cont to offer nutr suppl and encourage intake. -GIOVANI ALEJANDRO Dec 06, 2017 13:41
[2017-12-06] MEDS: ACETAMINOPHEN 325 MG TAB PO PRN (15:40)
[2017-12-06 17:05] VITALS: BP 153/83
[2017-12-06 19:44] VITALS: BP 142/79
[2017-12-06 23:36] VITALS: BP 184/97
[2017-12-07 01:57] VITALS: BP 172/99
[2017-12-07] MEDS: ACETAMINOPHEN 325 MG TAB PO PRN ×2 (02:03→14:41)
[2017-12-07] MEDS ORDERED: METOPROLOL TART 5 MG/5 ML VIAL IVP PRN (02:15)
[2017-12-07] MEDS: LEVALBUTEROL 1.25 MG/3 ML NEB NEB PRN (05:57)
[2017-12-07 08:16] LABS: PLATELET COUNT, AUTOMATED 109 K/uL (150-450)
[2017-12-07] MEDS ORDERED: LEVOFLOXACIN 750 MG TAB PO SCH ×2 (09:00→22:00)
[2017-12-07] MEDS: VANCOMYCIN 1 GM ADDVIAL 1 GM in NS(*) 0.9% 250 ML ADDVAN BAG 250 ML IVPB SCH (09:00)
[2017-12-07 09:34] VITALS: BP 154/88
[2017-12-07] MEDS: METOPROLOL SUCC XL 25 MG TABCR PO SCH (09:37)
[2017-12-07] MEDS: ENOXAPARIN 40 MG/0.4ML SYR SC SCH (09:38)
--- NOTE | 2017-12-07 13:41 | Hospitalist Progress Note ---
Subjective Progress Notes Subjective 57F admitted for UTI and bacteremia, susceptibility back today. Will adjust antibiotics and repeat BCx. TIFFANIE overnight, she continues to endorse SILVER. Patient Complains of: Respiratory: Cough, Shortness of Breath Gastrointestinal: No Nausea, No Vomiting Physical Exam Vital Signs Date Time Temp Pulse Resp B/P (MAP) Pulse Ox O2 Delivery O2 Flow Rate FiO2 12/07/17 09:34 99.1 96 22 154/88 (110) 94 Nasal Cannula 2.0 Intake and Output 12/07/17 06:59 Intake Total 2061.5 ml Balance 2061.5 ml Intake Oral 740 ml IV Total 1321.5 ml # Voids 10 # Bowel Movements 1 General Appearance: Alert, Awake, No Acute Distress Neuro: No Gross deficits ENT: Normal Neck: No Masses Cardiovascular: Other (tachycardic) Respiratory: Other (scattered crackles, on 2L NC) GI: Soft and Non-Tender Musculoskeletal: No Weakness/Pain Extremities: Soft and Non Tender, Warm, Pulses, Perfused; No Edema Integumentary: Skin Intact without Lesion / Mass Psych: Alert & Oriented X3, Appropriate Mood & Affect Result Diagram: 12/07/17 0807 12/07/17 0807 Monitor Interpretation: Sinus Tachycardia Assessment and Plan Problems: (1) Bacteremia due to group B Streptococcus Assessment & Plan: Appears to be from UTI as now appear to be same isolate. Will begin penicillin G, repeat BCX, stop Levaquin. Will discuss existing stents with urology as below. (2) UTI (urinary tract infection) Status: Acute Assessment & Plan: Secondary to strep group B with bacteremia. Penicillin G started, no evidence pyelonephritis but with existing ureteral stents. (3) Acute and chronic respiratory failure Assessment & Plan: Stable, possibly secondary to progression of cancer vs side effect from chemotherapy. Needs PFT when not acutely decompensated to further evaluate. Consider high-resolution CT as there is small possibility of pulmonary fibrosis with her chemotherapy regimen. (4) Anemia Assessment & Plan: Her Hgb was decreased and she was tachycardic. She was transfused 2 units of red cells 10.19. She remains slightly tachycardic. (5) Pleural effusion, bilateral Assessment & Plan: Malignant, She does have bilateral pleural effusions. There is a preexisting pigtail catheter on the right. Overall, per radiology, the pleural effusions appear unchanged from her previous film. (6) Hypothyroid Status: Chronic Assessment & Plan: She is on chronic treatment with levothyroxine. (7) Ovarian cancer Status: Chronic Assessment & Plan: She does have metastatic ovarian cancer, and has been receiving most of her care in [place]. There is peritoneal mets and possible metastasis to the lungs. Exam Sepsis Risk: No Definite Risk Problem Qualifiers (1) UTI (urinary tract infection): Urinary tract infection type: acute cystitis Hematuria presence: with hematuria Qualified Codes: N30.01 - Acute cystitis with hematuria (2) Ovarian cancer: Laterality: left Qualified Codes: C56.2 - Malignant neoplasm of left ovary ANITA MARK DO Dec 07, 2017 13:41
[2017-12-07] MEDS: SODIUM CHLORIDE IVPB SCH ×2 (14:45→19:42)
[2017-12-07] MEDS: PENICILLIN G IVPB SCH ×2 (14:45→19:42)
--- NOTE | 2017-12-07 16:32 | RADIOLOGY IMAGING REPORT ---
FACILITY: [facility] [place] PATIENT NAME: Shelby Cabrera : 1960 MR: [id number] V: [id number] EXAM DATE: ORDERING PHYSICIAN: ANITA BARAHONA TECHNOLOGIST: Location[place] [facility] [place] Patient: Shelby Cabrera : 1960 Visit/Account:[id number] Date of Sevice: 12/07/2017 EXAMINATION: High-resolution CT chest without IV contrast HISTORY: Subacute progressive hypoxia ILD linked medications TECHNIQUE: Axial CT images of the chest were obtained without IV contrast, including high-resolution inspiratory and expiratory images, and prone imaging. Coronal and sagittal 2D reconstructed images we re obtained. One of the following dose optimization techniques was utilized in the performance of this exam: Autom ated exposure control; adjustment of the mA and/or kV according to the patient's size; or use of an i terative reconstruction technique. Specific details can be referenced in the facility's radiology C T exam operational policy. COMPARISON: 12/03/2017 and 08/12/2017. FINDINGS: Lungs and pleura: A right-sided pleural drain remains in place, unchanged from the prior exam, exten ding along the right subpulmonic space. There is a persistent small loculated right pleural effusion along the lower right chest, similar to the prior exam, with diffuse surrounding pleural thickening a long the lower chest. Small amount of loculated pleural fluid along the right major fissure. There is a large free-flowing left-sided pleural effusion, which has increased in volume from the han or CT. Adjacent atelectasis in the left lung base. There is extensive consolidation in the mid and lower right lung which may represent a combination of chronic atelectasis and superimposed infiltrate. There are new small patchy regions of consolidative and groundglass opacity throughout the aerated portions of the mid and upper lungs, suspicious for a multifocal infectious or inflammatory pneumonitis. Evaluation for underlying interstitial lung disease is somewhat limited by the acute pulmonary findin gs. There is however no convincing evidence of an underlying interstitial process on the current or p rior examination. No significant air trapping on expiratory imaging. The central airways are patent. Mediastinum and john: Negative. Heart, aorta, and great vessels: Normal heart size. Normal caliber thoracic aorta. Right IJ central venous port, with tip in the RA. Chest lymph node assessment: Negative. Bones: Negative. Chest wall: Negative. Lower neck: Negative. Upper abdomen: Negative. IMPRESSION: 1. Right pleural drain in place. Stable size and appearance of a small chronic loculated pleural effu luis felipe along the lower right chest. 2. Persistent consolidation in the lower right lung may represent a combination of chronic atelectasi s and superimposed infiltrate. 3. Large free-flowing left pleural effusion has increased in volume, with adjacent atelectasis in the left lung base. 4. There are new small patchy regions of groundglass and consolidative opacity in the mid and upper l ungs, suspicious for multifocal pneumonitis. 5. No definite CT evidence of underlying interstitial lung disease, although evaluation is limited by the superimposed acute pulmonary findings. Report Dictated By: Emanuel Aviles MD at 12/07/2017 4:10 PM Report E-Signed By: Emanuel Aviles MD at 12/07/2017 4:28 PM [id number]
[2017-12-07 17:53] VITALS: BP 164/95
[2017-12-07 20:08] VITALS: BP 151/83
[2017-12-08 01:54] VITALS: BP 161/93
[2017-12-08] MEDS: PENICILLIN G IVPB SCH ×4 (01:59→20:40)
[2017-12-08] MEDS: SODIUM CHLORIDE IVPB SCH ×4 (01:59→20:40)
[2017-12-08 07:14] VITALS: BP 160/94
[2017-12-08] MEDS: METOPROLOL SUCC XL 25 MG TABCR PO SCH (08:42)
[2017-12-08] MEDS: ENOXAPARIN 40 MG/0.4ML SYR SC SCH (08:46)
[2017-12-08] MEDS: ACETAMINOPHEN 325 MG TAB PO PRN ×2 (11:55→18:17)
--- NOTE | 2017-12-08 12:38 | Hospitalist Progress Note ---
Subjective Progress Notes Subjective She is still having SILVER. Slept well. Physical Exam Vital Signs Date Time Temp Pulse Resp B/P (MAP) Pulse Ox O2 Delivery O2 Flow Rate FiO2 12/08/17 07:14 95 Nasal Cannula 2.0 12/08/17 07:14 99.0 91 16 160/94 (116) Intake and Output 12/08/17 07:00 Intake Total 765 ml Balance 765 ml Intake Oral 550 ml IV Total 215 ml # Voids 6 # Bowel Movements 1 General Appearance: Alert, Awake, No Acute Distress Respiratory: Other (Bibasilar insp crackles and decreased BS to bases bilaterally) Result Diagram: 12/07/1780612/07/17806 Monitor Interpretation: Sinus Tachycardia Assessment and Plan Problems: (1) Bacteremia due to group B Streptococcus Assessment & Plan: Appears to be from UTI as now appear to be same isolate. Now on penicillin G, repeat BCX pending (one was added from the port). Will discuss existing stents with urology as below. (2) UTI (urinary tract infection) Status: Acute Assessment & Plan: Secondary to strep group B with bacteremia. Penicillin G started, no evidence pyelonephritis but with existing ureteral stents. (3) Acute and chronic respiratory failure Assessment & Plan: She has chronic bilateral pleural effusions with a pleural drain on the right. Also, by CT she has new small patchy regions of ground glass and consolidative opacities in the mid and upper lungs. Concerned that she could have had seeding of the lung from the group B strep bacteremia. The left pleural effusion is large and there is concern that it could be seeded with the bacteremia, so will have it drained tomorrow by radiology. Will check LDH, cultures and total protein. (4) Anemia Assessment & Plan: Her Hgb was decreased and she was tachycardic. She was transfused 2 units of red cells 10.19. (5) Pleural effusion, bilateral Assessment & Plan: See above. (6) Hypothyroid Status: Chronic Assessment & Plan: She is on chronic treatment with levothyroxine. (7) Ovarian cancer Status: Chronic Assessment & Plan: She does have metastatic ovarian cancer, and has been receiving most of her care in [place]. There is peritoneal mets and possible metastasis to the lungs. Exam Sepsis Risk: No Definite Risk Problem Qualifiers (1) UTI (urinary tract infection): Urinary tract infection type: acute cystitis Hematuria presence: with hematuria Qualified Codes: N30.01 - Acute cystitis with hematuria (2) Ovarian cancer: Laterality: left Qualified Codes: C56.2 - Malignant neoplasm of left ovary KELLY HENRIQUEZ MD Dec 08, 2017 12:38
[2017-12-08] MEDS ORDERED: HEPARIN FLSH (PORT) 500 UN/5ML ONE ×2 (13:36→21:02)
[2017-12-08] MEDS ORDERED: ALTEPLASE RECOMB 2 MG VIAL IVP ONE ×2 (15:30→18:30)
[2017-12-08] MEDS ORDERED: WATER STERILE 10 ML VIAL IV ONE ×2 (15:30→18:35)
[2017-12-08 19:38] VITALS: BP 156/87
[2017-12-09] MEDS: SODIUM CHLORIDE IVPB SCH ×4 (01:58→20:08)
[2017-12-09] MEDS: PENICILLIN G IVPB SCH ×4 (01:58→20:08)
[2017-12-09 01:59] VITALS: BP 157/90
[2017-12-09 07:20] VITALS: BP 165/95
[2017-12-09] MEDS: METOPROLOL SUCC XL 25 MG TABCR PO SCH (08:32)
[2017-12-09 10:32] LABS: INR 1.01
--- NOTE | 2017-12-09 10:41 | Hospitalist Progress Note ---
Subjective Progress Notes Subjective This patient was admitted for pneumonia. She had no acute events overnight. Patient Complains of: Cardiovascular: No: Chest Pain Respiratory: Shortness of Breath Physical Exam Vital Signs Date Time Temp Pulse Resp B/P (MAP) Pulse Ox O2 Delivery O2 Flow Rate FiO2 12/09/17 07:42 91 Nasal Cannula 1.0 12/09/17 07:20 99.1 100 20 165/95 (118) Intake and Output 12/09/17 06:59 Intake Total 322 ml Balance 322 ml IV Total 322 ml # Voids 8 # Bowel Movements 2 Cardiovascular: Regular Rate and Rhythm Respiratory: Clear to Auscultation Result Diagram: 12/07/17 0812/07/17806 Monitor Interpretation: Sinus Tachycardia Assessment and Plan Problems: (1) Bacteremia due to group B Streptococcus Assessment & Plan: This appears to be from UTI as now appear to be same isolate. She was initially on treatment with levofloxacin and vancomycin, but is now on monotherapy with penicillin. (2) UTI (urinary tract infection) Status: Acute Assessment & Plan: Secondary to strep group B with bacteremia. She is on treatment with penicillin as above. She was also evaluated by Dr. Hicks regarding her ureteral stents. He is tentatively planning to change out the stents on . (3) Acute and chronic respiratory failure Assessment & Plan: She has chronic bilateral pleural effusions with a pleural drain on the right. Also, by CT she has new small patchy regions of ground glass and consolidative opacities in the mid and upper lungs. Concerned that she could have had seeding of the lung from the group B strep bacteremia. The left pleural effusion is large and there is concern that it could be seeded with the bacteremia. She is scheduled to have a thoracentesis today. (4) Anemia Assessment & Plan: Her Hgb was decreased and she was tachycardic. She was transfused 2 units of red cells 10.19. (5) Pleural effusion, bilateral Assessment & Plan: See above. (6) Hypothyroid Status: Chronic Assessment & Plan: She is on chronic treatment with levothyroxine. (7) Ovarian cancer Status: Chronic Assessment & Plan: She does have metastatic ovarian cancer, and has been receiving most of her care in [place]. There is peritoneal mets and possible metastasis to the lungs. Exam Sepsis Risk: No Definite Risk Problem Qualifiers (1) UTI (urinary tract infection): Urinary tract infection type: acute cystitis Hematuria presence: with hematuria Qualified Codes: N30.01 - Acute cystitis with hematuria (2) Ovarian cancer: Laterality: left Qualified Codes: C56.2 - Malignant neoplasm of left ovary MILY MORALES DO Dec 09, 2017 10:41
--- NOTE | 2017-12-09 11:51 | CONSULTATION ---
EVENT DATE: December 09, 2017 REASON FOR CONSULTATION Bacteruria with bacteremia, history of renal obstruction secondary to metastatic ovarian cancer. HISTORY OF PRESENT ILLNESS The patient is a 57-year-old woman who was diagnosed with ovarian cancer and treated for upper tract obstructive uropathy with bilateral double-J stents that had been exchanged approximately every 3 months. Her last stent exchange was approximately 2 months ago. She presented to the emergency room with progressive shortness of breath and underwent repeat imaging which demonstrated bilateral pleural effusions as well as delayed nephrogram of the right kidney with dilation of the renal pelvis despite the presence of stent. She also underwent culture of both the urine and blood which demonstrated the presence of the same gram positive organism ( Group B streptococcus). She had a low grade fever and CT scan imaging also demonstrated a right upper lobe ground glass opacity as well as worsening peritoneal adenopathy. Since her admission, she was begun on intravenous antibiotic (penicillin) and fluid. Her renal function has remained normal and her repeat blood cultures thus far no growth. PAST MEDICAL HISTORY 1. Metastatic ovarian cancer. 2. Hypothyroidism. HOME MEDICATIONS 1. Synthroid. 2. Ciprofloxacin. 3. Phenazopyridine. 4. Famotidine. 5. Oxaliplatin as her chemotherapy regimen. ALLERGIES CARBOPLATIN TORADOL FAMILY HISTORY Negative for urologic malignancy. SOCIAL HISTORY Is positive for chewing tobacco. She does occasionally drink alcohol. No history of substance use. REVIEW OF SYSTEMS Positive for slight shortness of breath at rest and cough. PHYSICAL EXAMINATION GENERAL: The patient was examined at the bedside with her daughter present. She is awake, alert, and comfortable, although slightly tachypneic. ABDOMEN: Soft and nontender. There is no guarding or rebound. There is no CVA tenderness. The bladder itself is not palpable. She does have a pleural drain in the right thorax. EXTREMITIES: The lower extremities have trace pretibial edema. IMPRESSION Possible partial obstruction of the right kidney/malfunctioning double-J stent with subsequent bacteruria and bacteremia. PLAN Thus far the patient has responded to therapy and is generally feeling better. As I explained to her and her daughter, the concern is that the right kidney is not being adequately drained by the previously placed double-J stent. The near term solution would be exchange of the double-J stents with possible tandem stents in the right kidney. Down the road, however, the possibility that stents will no longer be able to adequately drain the kidney does exist, and I told her she may need to consider the option of placement of a percutaneous nephrostomy tube or a nephroureteral catheter that could be exchanged percutaneously. This may be a better option for her in the future because it would avoid the need for an anesthetic to change the double-J stents. She is scheduled to undergo thoracentesis today and wants to consider her options, but I will tentatively schedule her for cystoscopy and stent exchange 12/11/2017 provided she can be medically optimized. Total time spent counselling patient and coordinating care with other providers 45 minutes. CARRINGTON
--- NOTE | 2017-12-09 13:20 | RADIOLOGY IMAGING REPORT ---
[facility] PATIENT NAME: Shelby Cabrera : 1960 MR: [id number] V: [id number] EXAM DATE: ORDERING PHYSICIAN: MILY MORALES TECHNOLOGIST: Location: [facility] - [place] Patient: Shelby Cabrera : 1960 Visit/Account:[id number] Date of Sevice: 12/09/2017 CHEST SPECIAL VIEW Indication: Thoracentsis Inspiration and Expiration Comparison: Chest x-ray 12/04/2017 Findings: Right-sided portacatheter is in good position. There is a right-sided chest tube unchanged . Previously seen left-sided pleural effusion has significantly decreased in size. There is no evidenc e of pneumothorax. IMPRESSION: 1. Status post left-sided thoracentesis. There is no evidence of pneumothorax. 2. Right-sided chest tube unchanged. Report Dictated By: Marshall Morales at 12/09/2017 1:15 PM Report E-Signed By: Marshall Morales at 12/09/2017 1:16 PM WSN:[id number]
--- NOTE | 2017-12-09 15:34 | RADIOLOGY IMAGING REPORT ---
FACILITY: [facility] - [place] PATIENT NAME: Shelby Cabrera : 1960 MR: [id number] V: [id number] EXAM DATE: ORDERING PHYSICIAN: KELLY HENRIQUEZ TECHNOLOGIST: Location: [facility] [place] Patient: Shelby Cabrera : 1960 Visit/Account:[id number] Date of Sevice: 12/09/2017 Exam type: THORACENTESIS History: left sided pleural effusion Comparison: CT chest December 07, 2017. Findings: Informed consent was obtained. The posterior left side of the patient's thorax was prepped and drape d usual sterile fashion following identification of a moderate to large left pleural effusion sonogra phically. Local anesthesia was accomplished with 1% lidocaine. Under sonographic guidance a Colorescience ca theter was advanced percutaneously into the left pleural cavity. Approximately 950 mL of el-color ed pleural fluid was removed from the left pleural cavity. The post thoracentesis chest radiograph d emonstrated interval reduction in the size of the left pleural effusion with no demonstration of a pn eumothorax IMPRESSION: 1. Successful sonographically guided left-sided thoracentesis with interval removal of 950 mL of amb er-colored pleural fluid. Report Dictated By: Beth Henriquez MD at 12/09/2017 3:27 PM Report E-Signed By: Beth Henriquez MD at 12/09/2017 3:30 PM WSN:[email or web address]
[2017-12-09 17:05] VITALS: BP 143/89
[2017-12-09] MEDS: ACETAMINOPHEN 325 MG TAB PO PRN (17:08)
[2017-12-09 20:04] VITALS: BP 161/91
[2017-12-10] MEDS: PENICILLIN G IVPB SCH ×4 (01:21→20:08)
[2017-12-10] MEDS: SODIUM CHLORIDE IVPB SCH ×4 (01:21→20:08)
[2017-12-10] MEDS ORDERED: NS(*) 0.9% 250 ML BAG 250 ML ONE (01:22)
[2017-12-10 01:28] VITALS: BP 132/87
[2017-12-10 07:22] VITALS: BP 137/84
[2017-12-10] MEDS: METOPROLOL SUCC XL 25 MG TABCR PO SCH (08:33)
--- NOTE | 2017-12-10 10:31 | Hospitalist Progress Note ---
Subjective Progress Notes Subjective She reports feeling much improved following left thoracentesis yesterday. Some mild pleuritic pain on left. Physical Exam Vital Signs Date Time Temp Pulse Resp B/P (MAP) Pulse Ox O2 Delivery O2 Flow Rate FiO2 12/10/17 07:22 98.8 98 22 137/84 (101) 93 Nasal Cannula 0.5 Intake and Output 12/10/17 07:00 Intake Total 326 ml Balance 326 ml Intake Oral 0 ml IV Total 326 ml # Voids 4 General Appearance: Alert, Awake Cardiovascular: Regular Rate and Rhythm Respiratory: Other (slightly diminished breath sounds at right base/pleural rub noted at left base) GI: Soft and Non-Tender, Other (right thoracentesis indwelling cath present RUQ ) Extremities: Warm, Perfused Psych: Alert & Oriented X3 Result Diagram: 12/07/1780612/07/17806 Assessment and Plan Problems: (1) Bacteremia due to group B Streptococcus Status: Acute Assessment & Plan: This appears to be from UTI as appears to be same isolate. She was initially on treatment with levofloxacin and vancomycin, but is now on monotherapy with penicillin. She will have bilateral ureteral stents changed with urology tomorrow. (2) UTI (urinary tract infection) Status: Acute Assessment & Plan: Secondary to strep group B with bacteremia. She is on treatment with penicillin as above. She was also evaluated by Dr. Hicks regarding her ureteral stents. He is tentatively planning to change out the stents tomorrow. (3) Acute and chronic respiratory failure Assessment & Plan: She has chronic bilateral pleural effusions with a pleural drain on the right. Also, by CT she has new small patchy regions of ground glass and consolidative opacities in the mid and upper lungs. There was concern that she could have had seeding of the lung from the group B strep bacteremia. This was improved on CXR yesterday. The left pleural effusion was large and there was concern that it could have been seeded with the bacteremia. She had thoracentesis yesterday and fluid appears to be exudative and initial gram stain and culture are negative. (4) Anemia Assessment & Plan: Her Hgb was decreased and she was symptomatic. She was transfused 2 units of red cells 12/05/17. Her counts have remained stable. (5) Pleural effusion, bilateral Assessment & Plan: See above. (6) Hypothyroid Status: Chronic Assessment & Plan: She is on chronic treatment with levothyroxine. (7) Ovarian cancer Status: Chronic Assessment & Plan: She does have metastatic ovarian cancer and has been receiving most of her care in [place]. There is peritoneal mets and probable metastasis to the lungs/pleura. Exam Sepsis Risk: No Definite Risk Problem Qualifiers (1) UTI (urinary tract infection): Urinary tract infection type: acute cystitis Hematuria presence: with hematuria Qualified Codes: N30.01 - Acute cystitis with hematuria (2) Ovarian cancer: Laterality: left Qualified Codes: C56.2 - Malignant neoplasm of left ovary RAFI SUAREZ MD Dec 10, 2017 10:31
--- NOTE | 2017-12-10 10:38 | Urology Progress Note ---
Subjective Progress Notes Subjective She appears to be breathing more comfortably this morning after having thoracentesis yesterday. She states that her breathing has improved. Patient Complains of: Neurological: No: Syncope, Confusion, Weakness, Dizziness, Slurred Speech, Other Cardiovascular: No: Chest Pain, Palpitations, Orthostatic Hypotension, Other Genitourinary: Hematuria Physical Exam Vital Signs Date Time Temp Pulse Resp B/P (MAP) Pulse Ox O2 Delivery O2 Flow Rate FiO2 12/10/17 07:22 98.8 98 22 137/84 (101) 93 Nasal Cannula 0.5 Intake and Output 12/10/17 06:59 Intake Total 326 ml Balance 326 ml Intake Oral 0 ml IV Total 326 ml # Voids 4 General Appearance: Alert, Awake GI: Soft and Non-Tender : No CVA Tenderness Extremities: Soft and Non Tender Result Diagram: 12/07/17 0807 12/07/17806 Assessment and Plan Problems: (1) UTI (urinary tract infection) Status: Chronic (2) Pleural effusion, bilateral (3) Ovarian cancer Status: Chronic (4) Bacteremia due to group B Streptococcus Status: Acute Time Spent: < 30 min (I would like to see if we can drain the right-sided pleural effusion preoperatively. I will look to try and schedule her for cystoscopy with bilateral stent exchange 12/11/2017.) Exam Sepsis Risk: No Definite Risk Problem Qualifiers (1) UTI (urinary tract infection): Urinary tract infection type: acute cystitis Hematuria presence: with hematuria Qualified Codes: N30.01 - Acute cystitis with hematuria (2) Ovarian cancer: Laterality: left Qualified Codes: C56.2 - Malignant neoplasm of left ovary FREDERIC VAZQUEZ MD Dec 10, 2017 10:38
[2017-12-10 11:06] VITALS: BP 148/91
[2017-12-10 13:15] VITALS: BP 148/85
--- NOTE | 2017-12-10 19:33 | Miscellaneous Provider Note ---
Miscellaneous Provider Note Note Attempt was made to drain right pleural effusion using the indwelling cath. Only a small amount of fluid was obtained (~5-7cc) before an obstruction was noted. It appeared to be a small clot or piece of tissue. Some of this was removed manually from the Vacutainer side. Unfortunately, there appeared to be some residual material on the catheter side and the pleural fluid would not flow. Will see if surgery has any ideas on how to get better drainage. RAFI SUAREZ MD Dec 10, 2017 19:33
[2017-12-10 19:54] VITALS: BP 142/83
[2017-12-10 23:51] VITALS: BP 141/83
[2017-12-11] VITALS (14 sets, daily range): BP systolic 128–164; BP diastolic 71–95
[2017-12-11] MEDS: PENICILLIN G IVPB SCH ×4 (01:34→19:53)
[2017-12-11] MEDS: SODIUM CHLORIDE IVPB SCH ×4 (01:34→19:53)
[2017-12-11 06:30] LABS: PLATELET COUNT, AUTOMATED 129 K/uL (150-450)
[2017-12-11] MEDS: METOPROLOL SUCC XL 25 MG TABCR PO SCH (09:03)
[2017-12-11] MEDS ORDERED: FAMOTIDINE(*) 20MG/50ML PREMIX 50 ML IVPB ONE (10:25)
[2017-12-11] MEDS ORDERED: NORMOSOL R SOLN(*) 1000 ML BAG 1,000 ML IV ONE (10:25)
[2017-12-11] MEDS ORDERED: IOPAMIDOL-200 50 ML VIAL IS ONE (11:06)
[2017-12-11] MEDS ORDERED: NS 0.9% 3000 ML IRRIGATION BAG IR ONE (11:51)
[2017-12-11] MEDS ORDERED: NS 0.9% IRRIGATION 1000ML PLCT IR ONE (11:52)
--- NOTE | 2017-12-11 13:30 | RADIOLOGY IMAGING REPORT ---
FACILITY: [facility] [place] PATIENT NAME: Shelby Cabrera : 1960 MR: [id number] V: [id number] EXAM DATE: ORDERING PHYSICIAN: FREDERIC VAZQUEZ TECHNOLOGIST: Location: [facility] - [place] Patient: Shelby Cabrera : 1960 Visit/Account:[id number] Date of Sevice: 12/11/2017 Exam: C-ARM FLUORO 1 HR Indication: KIDNEY STONES, RAD Comparison: 10/06/2017 Findings: Fluoroscopy is provided for bilateral ureteroscopy and stent exchange. Fluoroscopy time 11 seconds DOSE: Air kerma was 9.24 mGy. IMPRESSION: Procedural fluoroscopy Report Dictated By: Marito Orosco at 12/11/2017 1:24 PM Report E-Signed By: Marito Orosco at 12/11/2017 1:25 PM WSN:[id number]
--- NOTE | 2017-12-11 14:00 | Hospitalist Progress Note ---
Subjective Progress Notes Subjective 57F with SOB. TIFFANIE overnight, reports feeling better after L side thoracentesis, no decrease in O2 needs. Patient Complains of: Gastrointestinal: No Nausea, No Vomiting Physical Exam Vital Signs Date Time Temp Pulse Resp B/P (MAP) Pulse Ox O2 Delivery O2 Flow Rate FiO2 12/11/17 13:15 90 145/90 (108) 93 12/11/17 13:15 Nasal Cannula 2.0 12/11/17 13:10 97.8 24 Intake and Output 12/11/17 07:00 Intake Total 392 ml Output Total 5 ml Balance 387 ml Intake Oral 120 ml IV Total 272 ml Output Drainage Total 5 ml # Voids 7 General Appearance: Alert, Awake, No Acute Distress Neuro: No Gross deficits Eyes: PERRLA ENT: Normal Neck: No Masses Cardiovascular: Normal Rhythm & Peripheral Pulses Respiratory: Clear to Auscultation (on 2-3L NC) GI: Soft and Non-Tender Musculoskeletal: No Weakness/Pain Extremities: Soft and Non Tender, Warm, Pulses, Perfused Integumentary: Skin Intact without Lesion / Mass Psych: Alert & Oriented X3 Result Diagram: 12/11/1748 12/11/1748 Assessment and Plan Problems: (1) Bacteremia due to group B Streptococcus Status: Acute Assessment & Plan: This appears to be from UTI as appears to be same isolate. She was initially on treatment with levofloxacin and vancomycin, but is now on monotherapy with penicillin. She will have bilateral ureteral stents changed with urology today and IV Abx for 24 hours. May then change to PO to complete 14 days through 12.21.2017 (2) UTI (urinary tract infection) Status: Chronic Assessment & Plan: Secondary to strep group B with bacteremia. She is on treatment with penicillin as above. She was also evaluated by Dr. Hicks regarding her ureteral stents. Stents replaced 12.11.2017 (3) Acute and chronic respiratory failure Assessment & Plan: She has chronic bilateral pleural effusions with a pleural drain on the right. Also, by CT she has new small patchy regions of ground glass and consolidative opacities in the mid and upper lungs. There was concern that she could have had seeding of the lung from the group B strep bacteremia. This was improved on CXR yesterday. The left pleural effusion was large and there was concern that it could have been seeded with the bacteremia. She had thoracentesis yesterday and fluid appears to be exudative and initial gram stain and culture are negative. (4) Anemia Assessment & Plan: Her Hgb was decreased and she was symptomatic. She was transfused 2 units of red cells 12/05/17. Her counts have remained stable. (5) Pleural effusion, bilateral Assessment & Plan: See above. (6) Hypothyroid Status: Chronic Assessment & Plan: She is on chronic treatment with levothyroxine. (7) Ovarian cancer Status: Chronic Assessment & Plan: She does have metastatic ovarian cancer and has been receiving most of her care in [place]. There are peritoneal mets and probable metastasis to the lungs/pleura. Exam Sepsis Risk: No Definite Risk Problem Qualifiers (1) UTI (urinary tract infection): Urinary tract infection type: acute cystitis Hematuria presence: with hematuria Qualified Codes: N30.01 - Acute cystitis with hematuria (2) Ovarian cancer: Laterality: left Qualified Codes: C56.2 - Malignant neoplasm of left ovary ANITA MARK DO Dec 11, 2017 14:00
--- NOTE | 2017-12-11 14:31 | OPERATIVE REPORT 1 ---
EVENT DATE: December 11, 2017 SURGEON: Syed Hicks MD ANESTHESIOLOGIST: Tee Timmons MD ANESTHESIA: LMA general. VARNISH SUPERVISOR: None. PREOPERATIVE DIAGNOSIS Metastatic ovarian cancer with ureteral obstruction. POSTOPERATIVE DIAGNOSIS Metastatic ovarian cancer with ureteral obstruction. PROCEDURE PERFORMED Cystoscopy with exchange of bilateral double-J stents. DESCRIPTION OF PROCEDURE The patient was brought to the operating room, and after the adequate induction of general anesthesia, she was placed in the relaxed dorsal lithotomy position. The genitalia were scrubbed, prepped, and draped in a sterile fashion. The bladder examined with the rigid cystoscope. Within the bladder, there was mild edematous change, but no intravesical abnormalities. Beginning on the left side, the previously placed double-J stent was grasped and withdrawn through the urethral meatus. A sensor wire was advanced under fluoroscopic guidance to the level of the renal pelvis and then withdrawn over the wire. The wire was then backloaded through the cystoscope, and a 24 cm, 4.8-Faroese double-J stent positioned under cystoscopic and fluoroscopic guidance. I was then able to advance a 6-Faroese access catheter to the level of the proximal ureter, but here it met resistance. I was able to advance the sensor wire into the right renal pelvis, and then by exchanging the access catheter for another 4.8 double-J stent, positioned two tandem 4.8 double-J stents in the right collecting system. Their position was confirmed by fluoroscopy. A similar procedure was undertaken on the left side. Here, I removed the previously placed double-J stent over a wire, backloaded the wire through the cystoscope, and passed a 24 cm, 7-Faroese double-J stent under cystoscopic and fluoroscopic guidance. Final fluoroscopic image demonstrated all three stents to be in satisfactory position with three coils in the upper tract, three coils in the bladder. Her bladder was emptied. She was aroused from anesthesia and then transported to PACU in stable condition. CARRINGTON
--- NOTE | 2017-12-11 16:46 | Medical Nutrition Therapy ---
Nutrition Anthropometrics Height (Inches): 62.00 Height (Calculated Centimeters: 157.472127 Weight (Pounds): 134 Weight (Calculated Kilograms): 60.781 Darryn Nutrition Score: Probably Inadequate Darryn Nutrition Risk Score: 20 Dietary Referral Nutrition Risk Factors: Unplanned Loss >10lbs Nutrition Risk Comment: Nutritional Diagnosis Nutritional Risk Acuity 2: Unintended Wt Loss >5%/mo, Head/Neck/GI Cancer Nutritional Acuity: 2-Moderate Nutrition Diagnosis: Increased Nutrient Needs Nutrition Etiology: Physiological Causes Nutrition Problem/Etiology/Sym: Increased nutrient needs related to physiological causes as evidenced by severe anemia (hgb 8.7, hct 26.2) an 7.5% wt loss in 4 months. Energy Requirement: 1700 ([id number] (HB x 1.3-1.5)) Protein Requirement: 66 (66-78 (1.1-1.3 g/kg)) Fluid Requirement: 1800 (30 ml/kg) Diet Type: Diet as Tolerated [place]/REG Nutrition Intervention: Cont diet as ordered, Encourage intake, Between meal supplement Additional Diet Restrictions: OFFER NUTR SUPPLMENTS Nutrition Monitoring & Eval Nutrition Goals: Eat 75-100% Meal Nutrition Follow-Up: Fair Intake RD Patient Assessment Time: [address] Assessment Type: RD Re-Assessment Patient Nutrition Acuity: 2-Moderate Follow Up Date: Dec 16, 2017 Nutritional Comment: 12/05 Pt admitted with pneumonia. Pt has hx of ovarian Ca with mets. Pt has 7.5% wt loss in 4 months with current wt of 134# and wt 07/23/17 of 145#. BG mildly elevated at 127-132, Alb 3.1, Hgb 8.7, Hct 26.2. Pt on regular diet but no intake reported at this time. Will offer nutr supplments to increase kcal and protein intake. BK 12/11 Pt cont on regular diet. Intake average 69% of small to regular portions. Alb 3.2. Will cont to monitor and encourage intake. BK 12/06 Pt reporting SOB on exertion. Intake of 100% and 75% of two meals and bites of others. Anemia resolved with 2 units of blood. Noting elevated liver enzymes, alk phos 434 and alb 3. Will cont to offer nutr suppl and encourage intake. -SABRINA WOODARD Dec 11, 2017 16:46
[2017-12-12] MEDS: PENICILLIN G IVPB SCH ×2 (01:26→07:19)
[2017-12-12] MEDS: SODIUM CHLORIDE IVPB SCH ×2 (01:26→07:19)
[2017-12-12 04:35] VITALS: BP 165/93
[2017-12-12 07:17] VITALS: BP 146/83
[2017-12-12] MEDS: METOPROLOL SUCC XL 25 MG TABCR PO SCH (08:17)
--- NOTE | 2017-12-12 09:31 | Urology Progress Note ---
Subjective Patient Complains of: Genitourinary: Hematuria (normal amount of hematuria following placement of double-J stents) Physical Exam Vital Signs Date Time Temp Pulse Resp B/P (MAP) Pulse Ox O2 Delivery O2 Flow Rate FiO2 12/12/17 07:22 90 Nasal Cannula 0.5 12/12/17 07:17 97.6 79 146/83 (104) 12/11/17 13:10 24 Intake and Output 12/12/17 07:00 Intake Total 1608 ml Balance 1608 ml Intake Oral 240 ml IV Total 968 ml Other 400 ml # Voids 8 # Bowel Movements 1 General Appearance: Alert, Awake Respiratory: No Respiratory Distress : No CVA Tenderness (no dysuria, mild urgency, typical for recent manipulation) Result Diagram: 12/11/1754712/11/17547 Assessment and Plan Problems: (1) UTI (urinary tract infection) Status: Chronic (2) Pleural effusion, bilateral (3) Ovarian cancer Status: Chronic (4) Bacteremia due to group B Streptococcus Status: Acute Condition Status post removal and replacement of ureteral stents. I was able to position 2 stents in the obstructed right ureter which will hopefully allow for improved drainage in the near future. I do think that ultimately she will need a neph roureteral ("Monetta") stent. I have also recommended that she take some low- dose Macrodantin 50 mg by mouth daily at bedtime for 30 days after she has completed her oral antibiotic regimen at home. I would like her to follow up in my clinic in 2 months, sooner if necessary. I will look to try and schedule replacement of her stents versus placement of percutaneous universal stent in about 3 months Exam Sepsis Risk: No Definite Risk Problem Qualifiers (1) UTI (urinary tract infection): Urinary tract infection type: acute cystitis Hematuria presence: with hematuria Qualified Codes: N30.01 - Acute cystitis with hematuria (2) Ovarian cancer: Laterality: left Qualified Codes: C56.2 - Malignant neoplasm of left ovary FREDERIC VAZQUEZ MD Dec 12, 2017 09:31
--- NOTE | 2017-12-12 11:18 | General Surgery Progress Note ---
Subjective Progress Notes Subjective Breathing easier, denies SOB Physical Exam Vital Signs Date Time Temp Pulse Resp B/P (MAP) Pulse Ox O2 Delivery O2 Flow Rate FiO2 12/12/17 07:22 90 Nasal Cannula 0.5 12/12/17 07:17 97.6 79 146/83 (104) 12/11/17 13:10 24 Intake and Output 12/12/17 07:00 Intake Total 1608 ml Balance 1608 ml Intake Oral 240 ml IV Total 968 ml Other 400 ml # Voids 8 # Bowel Movements 1 General Appearance: Alert, Awake, No Acute Distress, Afebrile Respiratory: No Respiratory Distress, Clear to Auscultation (Diminished in right base) Result Diagram: 12/11/1748 12/11/1748 Assessment and Plan Problems: (1) Pleural effusion, bilateral Assessment & Plan: 12/12/17: Patient seen and evaluated with Dr. Ingram. Feeling much better after left thoracentesis. We discussed options for right sided Pleurex catheter. There appears to be a small loculation in the right pleural space not drained by the catheter. We discussed leaving catheter and instilling TPA via the catheter versus removal of the catheter. She wishes to discuss next week with her oncologist before making a decision. She agrees to follow up with Dr. Ingram after that visit. We are available if we can be of any assistance during her current hospitalization. Time Spent: < 30 min Exam Sepsis Risk: No Definite Risk TRENTON HYMAN MD Dec 12, 2017 11:18
[2017-12-12] MEDS ORDERED: cefTRIAXone 1 GM VIAL IVP SCH (14:00)
[2017-12-12] MEDS ORDERED: METO25TA23 PO (15:19)
[2017-12-12] MEDS ORDERED: CEFT1VIA63 IVP (15:20)
--- NOTE | 2017-12-12 15:35 | Hospitalist Depart ---
Discharge Summary Reason for Hosp/Final Diag: (1) Bacteremia due to group B Streptococcus Status: Acute Hospital Course & Plan: This appears to be from UTI as appears to be same isolate. She was initially on treatment with levofloxacin and vancomycin, but then monotherapy with penicillin. Repeat blood cultures from 12/07 were both negative. Because of the indwelling vascular port (which blood cultures were not able drawn from), Dr. Gordillo (ID) recommended a total of 14 days of IV antibiotics. This has been arranged through the [facility]. She will receive ceftriaxone for 9 more days. (2) UTI (urinary tract infection) Status: Chronic Hospital Course & Plan: Secondary to strep group B with bacteremia. She was on treatment with penicillin as above. She was also evaluated by Dr. Hicks regarding her ureteral stents. Stents were replaced 12/11/2017 (3) Acute and chronic respiratory failure Hospital Course & Plan: She has chronic bilateral pleural effusions with a pleural drain on the right. Also, by CT she has new small patchy regions of ground glass and consolidative opacities in the mid and upper lungs. There was concern that she could have had seeding of the lung from the group B strep bacteremia. This was improved on follow up CXR. The left pleural effusion was large and there was concern that it could have been seeded with the bacteremia. She had thoracentesis with about one liter removed and fluid appears to be exudative. Cultures are negative. (4) Anemia Hospital Course & Plan: Her Hgb was decreased and she was symptomatic. She was transfused 2 units of red cells 12/05/17. Her counts have remained stable. WBC and platelet count remain low. She will get a follow up CBC in a couple of days. (5) Pleural effusion, bilateral Hospital Course & Plan: See above. (6) Hypothyroid Status: Chronic Hospital Course & Plan: She is on chronic treatment with levothyroxine. (7) Ovarian cancer Status: Chronic Hospital Course & Plan: She does have metastatic ovarian cancer and has been receiving most of her care in [place], but switching to [place]. Departure Weight (Pounds): 134 Result Diagram: 12/11/17 0548 12/11/17 0548 Item Value Date Time White Blood Count 7.9 k/uL 12/04/17 2210 White Blood Count 9.4 k/uL 12/05/17 0530 White Blood Count 4.5 k/uL 12/06/17 0538 White Blood Count 4.3 k/uL L 12/07/17 0807 White Blood Count 3.1 k/uL L 12/11/17 0548 Hemoglobin 12.4 g/dL 12/11/17 0548 Hemoglobin 12.7 g/dL 12/07/17 0807 Hemoglobin 12.2 g/dL # 12/06/17 0538 Hemoglobin 8.7 g/dL *L 12/05/17 0530 Hemoglobin 10.6 g/dL L 12/04/17 2210 Red Cell Distribution Width 20.8 % H 12/04/17 2210 Platelet Count 116 K/uL L 12/05/17 0530 Platelet Count 112 K/uL L 12/06/17 0538 Platelet Count 109 K/uL L 12/07/17 0807 Platelet Count 129 K/uL L 12/11/17 0548 Platelet Count 157 K/uL 12/04/17 2210 Neutrophils (%) (Auto) 90.3 % H 12/04/17 2210 Neutrophils (%) (Auto) 90.4 % H 12/05/17 0530 Neutrophils (%) (Auto) 82.0 % H 12/06/17 0538 Neutrophils (%) (Auto) 78.1 % H 12/07/17 0807 Neutrophils (%) (Auto) 71.7 % 12/11/17 0548 Troponin I < 0.012 ng/ml 12/04/172211 Lactate 1.4 mmol/L 12/04/172211 Blood Urea Nitrogen 16 mg/dl 12/04/17 2212 Creatinine 1.30 mg/dl H 12/04/17 2212 Carbon Dioxide Level 25 mmol/L 12/04/17 2212 Chloride Level 98 mmol/L 12/04/172211 Potassium Level 3.7 mmol/L 12/04/17 2212 Sodium Level 136 mmol/L L 12/04/17 221 Total Bilirubin 0.7 mg/dl 12/04/17 221 Aspartate Amino Transf (AST/SGOT) 54 U/L H 12/04/17 221 Alanine Aminotransferase (ALT/SGPT) 43 U/L 12/04/17 221 Alkaline Phosphatase 632 U/L H 12/04/17 2212 Total Protein 9.3 g/dl H 12/04/17 2212 Albumin 4.2 g/dl 12/04/17 2212 Alkaline Phosphatase 388 U/L H 12/05/17 0530 Alkaline Phosphatase 434 U/L H 12/06/17 0538 Alkaline Phosphatase 516 U/L H 12/07/17 0807 Alkaline Phosphatase 704 U/L H 12/11/17 0548 Aspartate Amino Transf (AST/SGOT) 61 U/L H 12/11/17 0548 Alanine Aminotransferase (ALT/SGPT) 65 U/L H 12/11/17 0548 Aspartate Amino Transf (AST/SGOT) 68 U/L H 12/07/17 0807 Alanine Aminotransferase (ALT/SGPT) 63 U/L H 12/07/17 0807 Aspartate Amino Transf (AST/SGOT) 70 U/L H 12/06/17 0538 Alanine Aminotransferase (ALT/SGPT) 60 U/L H 12/06/17 0538 Alanine Aminotransferase (ALT/SGPT) 45 U/L 12/05/17 0530 Aspartate Amino Transf (AST/SGOT) 38 U/L H 12/05/17 0530 Total Bilirubin 0.5 mg/dl 12/05/17 0530 Total Bilirubin 0.6 mg/dl 12/06/17 0538 Total Bilirubin 0.8 mg/dl 12/07/17 0807 Total Bilirubin 0.5 mg/dl 12/11/17 0548 B-Type Natriuretic Peptide 36 pg/ml 12/04/17 2212 Creatinine 1.10 mg/dl H 12/05/17 0530 Blood Urea Nitrogen 13 mg/dl 12/06/17 0538 Creatinine 0.70 mg/dl 12/07/17 0807 Creatinine 0.90 mg/dl 12/06/17 0538 Creatinine 0.90 mg/dl 12/11/17 0548 Prothromb Time International Ratio 1.01 12/09/17 0958 Urine Leukocyte Esterase Large H 12/04/17 2251 Urine RBC 302 /HPF 12/04/17 2251 Urine WBC 110 /HPF 12/04/17 2251 Urine Squamous Epithelial Cells Many /LPF H 12/04/17 2251 Urine Transitional Epithelial Cells Moderate /LPF H 12/04/17 2251 Urine Bacteria Few /HPF 12/04/17 2251 Urine Mucus None /HPF 12/04/17 2251 Urine Blood Large 12/04/17 2251 Body Fluid Type pleural 12/09/171124 Body Fluid Total Protein 5.5 G/dl 12/09/171124 Pleural Fluid LDH 863 U/L 12/09/171124 Influenza Virus Type A (PCR) Negative 12/04/172211 Influenza Virus Type B (PCR) Negative 12/04/172211 SPEC #: [id number] BRENNEN: 12/09/17 STATUS: COMP REQ #: [id number] RECD: 12/09/[address]: KELLY HENRIQUEZ MD SOURCE: PLEURAL FL ENTR: 12/08/[address]: ADDIE DOLAN PA-C SPDESC: ANITA NELSON DO ORDERED: CULT BF A/A/GS Procedure Result Verified GRAM STAIN Final 12/10/17 FEW WHITE BLOOD CELLS NO ORGANISMS SEEN CULTURE BODY FLUID Final 12/12/17 No growth after 3 days ANAEROBE CULTURE Final 12/11/17-1320 NO GROWTH AFTER 2 DAYS 12/07/17 Blood Cultures with growth x2 SPEC #: [id number] BRENNEN: 12/04/17 STATUS: COMP REQ #: [id number] RECD: 12/04/[address]: BJ CHAPPELL DO SOURCE: CCMS ENTR: 12/04/[address]: ADDIE DOLAN PA-C SPDESC: ORDERED: CULT URINE Procedure Result Verified URINE CULTURE Final 12/07/17 Organism 1 STREP AGALACTIAE GROUP B >100,000 COL/ML * This is a updated result. * A prior result that was reported as final has been changed.@ Old result entered: by [email or web address]@ Old result verified: by [email or web address]@ New result added: by [email or web address] RESULTS CALLED TO AND READ BACK BY (FIRST & LAST NAME, CREDENTIALS) NONA FRY RN [facility] RameshIJúniorCJúnior RX --------- --- AMPICILLIN <=0.25 S CEFOTAXIME <=0.12 S CEFTRIAXONE <=0.12 S LEVOFLOXACIN 0.5 S LINEZOLID <=2 S BENZYLPENICILLIN <=0.06 S VANCOMYCIN 0.5 S SPEC #: [id number] BRENNEN: 12/04/17 STATUS: COMP REQ #: [id number] RECD: 12/04/[address]: BJ CHAPPELL DO SOURCE: BLOOD PER ENTR: 12/04/[address]: ADDIE DOLAN PA-C [facility]: ORDERED: BCGS, CULT BLOOD --- --------- Procedure Result Verified BLOOD CULTURE GRAM STAIN Final 12/05/17 GRAM POSITIVE COCCI GROWTH IN BOTH THE AEROBIC AND ANAEROBIC BOTTLES POSITIVE BLOOD CULTURE GRAM STAIN REPORT CALLED TO: JOCELYNE EISENBERG DATE/TIME REPORT CALLED: 12/05/17 @ 0160 CALLED BY: Neda VALDEZ BLOOD CULTURE Final 12/07/17-1047 Organism 1 STREP AGALACTIAE GROUP B GROWTH PRESENT IN BOTH THE AEROBIC AND ANAER OBIC BOTTLES GBS vs. Erthromycin not on FDA Indications for Use [facility] M.I.C. RX --------- --- AMPICILLIN <=0.25 S CEFOTAXIME <=0.12 S CEFTRIAXONE <=0.12 S CLINDAMYCIN 0.5 R ERYTHROMYCIN >=8 R LINEZOLID <=2 S BENZYLPENICILLIN <=0.06 S VANCOMYCIN 0.5 S Imaging 12/09/17 CXR - 12/09/17 CXR - 1. Status post left-sided thoracentesis. There is no evidence of pneumothorax. 2. Right-sided chest tube unchanged. 12/09/17 Thoracentesis US - 1. Successful sonographically guided left-sided thoracentesis with interval removal of 950 mL of el-colored pleural fluid. 12/07/[address] - 1. Right pleural drain in place. Stable size and appearance of a small chronic loculated pleural effusion along the lower right chest. 2. Persistent consolidation in the lower right lung may represent a combination of chronic atelectasis and superimposed infiltrate. 3. Large free-flowing left pleural effusion has increased in volume, with adjacent atelectasis in the left lung base. 4. There are new small patchy regions of groundglass and consolidative opacity in the mid and upper lungs, suspicious for multifocal pneumonitis. 5. No definite CT evidence of underlying interstitial lung disease, although evaluation is limited by the superimposed acute pulmonary findings. 12/04/17 CXR - Persistent bilateral pleural effusions, without significant interval change. EKG Vent. Rate : 124 BPM Atrial Rate : 124 BPM P-R Int : 150 ms QRS Dur : 072 ms QT Int : 310 ms P-R-T Axes : 042 061 012 degrees QTc Int : 445 ms Sinus tachycardia Borderline ECG When compared with ECG of 02-NOV-2016 10:01, T wave inversion now evident in Inferior leads Confirmed by Anita Nelson ([id number]) on 12/04/2017 11:01:51 PM Condition: Improved Discharge: Home Discharge Instructions Home Meds Active Scripts Ceftriaxone Sodium (CEFTRIAXONE) 1 Gm Vial, 1 GM IVP Q24H@1400 for 9 Days, VIAL Prov:KELLY HENRIQUEZ MD 12/12/17 Reported Medications Metoprolol Succinate (METOPROLOL SUCCINATE) 25 Mg Tab.er.24h, 1 TAB PO QDAY, TAB 12/12/17 Levothyroxine Sodium (LEVOTHYROXINE SODIUM) 25 Mcg Tablet, 25 MCG PO QDAY 04/07/15 Diet: Regular Activity: As Tolerated Special Instructions: CBC/CMP in a about 5 days Daily Ceftriaxone infusion at [facility] for 9 days. Go to the ER for worsening SOB, fevers, chills, dysuria Copies to: ADDIE DOLAN PA-C; KATHERINE SCOTT MD ; Venous Thromboembolism Antithrombotics Is Pt On Any Antithrombotics?: Yes Problem Qualifiers (1) UTI (urinary tract infection): Urinary tract infection type: acute cystitis Hematuria presence: with hematuria Qualified Codes: N30.01 - Acute cystitis with hematuria (2) Ovarian cancer: Laterality: left Qualified Codes: C56.2 - Malignant neoplasm of left ovary KELLY HENRIQUEZ MD Dec 12, 2017 15:35
[2017-12-12] MEDS ORDERED: NITR50CA39 PO (15:50)
== END 2017-12-12 15:50 | disposition home or self-care (01) | DRG 193 ==
LOC: ER 22:05 → MED 12-05 00:27
PROVIDERS: ADMIT Internal Medicine; ATTEND Internal Medicine
PROC: 30233N1 Transfusion of Nonautologous Red Blood Cells into Peripheral Vein, Percutaneous Approach (ICD-10-PCS; 2017-12-05)
PROC: 0W9B3ZZ Drainage of Left Pleural Cavity, Percutaneous Approach (ICD-10-PCS; 2017-12-09)
PROC: 0T787DZ Dilation of Bilateral Ureters with Intraluminal Device, Via Natural or Artificial Opening (ICD-10-PCS; 2017-12-11)
PROC: 0TP97DZ Removal of Intraluminal Device from Ureter, Via Natural or Artificial Opening (ICD-10-PCS; principal; 2017-12-11 11:24)
DX: J15.3 Pneumonia due to streptococcus, group B (principal); J96.21 Acute and chronic respiratory failure with hypoxia; T83.112A Breakdown (mechanical) of indwelling ureteral stent, initial encounter; T83.593A Infection and inflammatory reaction due to other urinary stents, initial encounter; J91.0 Malignant pleural effusion; N30.01 Acute cystitis with hematuria; C56.2 Malignant neoplasm of left ovary; J44.0 Chronic obstructive pulmonary disease with (acute) lower respiratory infection; E03.9 Hypothyroidism, unspecified; D64.9 Anemia, unspecified; B95.1 Streptococcus, group B, as the cause of diseases classified elsewhere; N28.89 Other specified disorders of kidney and ureter; Z96.89 Presence of other specified functional implants; Z92.21 Personal history of antineoplastic chemotherapy; Z90.710 Acquired absence of both cervix and uterus; Z87.891 Personal history of nicotine dependence; Z88.8 Allergy status to other drugs, medicaments and biological substances
CPT/HCPCS: 32555; 36415; 36430; 71045; 71046; 71250; 76000; 80202; 81001; 82040; 82247; 82310; 82374; 82435; 82565; 82947; 83605; 83615; 83880; 84075; 84132; 84155; 84157; 84295; 84450; 84460; 84484; 84520; 85025; 85610; 86850; 86900; 86901; 86920; 87040; 87071; 87073; 87077; 87088; 87186; 87205; 87502; 93005; 94640; A4216; A7048; C1769; C1894; C2617; J0360; J0696; J1100; J1642; J1650; J2001; J2405; J2540; J2704; J2997; J3010; J3370; J3490; J7030; J7040; J7050; P9016; Q9966

== ENCOUNTER → 2017-12-16 | Outpatient (CLI) | payer BC ==
[2017-12-05 09:11] VITALS: BMI 24.5
[~2017-12-16] MED LIST changes: +CEFT1VIA63 IVP; +LEVO50TA86 PO; +METO25TA23 PO; +NITR50CA39 PO
[2017-12-16 10:59] LABS: PLATELET COUNT, AUTOMATED 168 K/uL (150-450)
== END ==
LOC: SPU 10:41
PROVIDERS: ATTEND Physician Assistant
DX: D61.818 Other pancytopenia (principal); R79.89 Other specified abnormal findings of blood chemistry
CPT/HCPCS: 82040; 82247; 82310; 82374; 82435; 82565; 82947; 84075; 84132; 84155; 84295; 84450; 84460; 84520; 85025

== ENCOUNTER 2017-12-19 12:00 | Outpatient (RCR) | payer BC ==
[2017-12-05 09:11] VITALS: BMI 24.5
[2017-12-13] MEDS: cefTRIAXone(*) 1 GM VIAL 1 GM in NS(*) 0.9% 100 ML ADDVANT BAG 100 ML IVPB SCH (12:04)
[2017-12-13] MEDS: NS(*) 0.9% 100 ML BAG 100 ML IVPB PRN (12:06)
[2017-12-13 12:19] VITALS: BP 154/99
[2017-12-13] MEDS: HEPARIN FLSH (PORT) 500 UN/5ML IVP PRN (12:30)
[2017-12-13 12:43] VITALS: BP 170/94
[2017-12-14] MEDS: cefTRIAXone(*) 1 GM VIAL 1 GM in NS(*) 0.9% 100 ML ADDVANT BAG 100 ML IVPB SCH (10:32)
[2017-12-14] MEDS: NS(*) 0.9% 100 ML BAG 100 ML IVPB PRN (10:34)
[2017-12-14] MEDS: HEPARIN FLSH (PORT) 500 UN/5ML IVP PRN (10:35)
[2017-12-14 10:37] VITALS: BP 157/84
[2017-12-14 11:32] VITALS: BP 131/77
[2017-12-15 11:00] VITALS: BP 136/80
[2017-12-15] MEDS: NS(*) 0.9% 100 ML BAG 100 ML IVPB PRN (11:01)
[2017-12-15] MEDS: cefTRIAXone(*) 1 GM VIAL 1 GM in NS(*) 0.9% 100 ML ADDVANT BAG 100 ML IVPB SCH (11:02)
[2017-12-15] MEDS: HEPARIN FLSH (PORT) 500 UN/5ML IVP PRN (11:05)
[2017-12-16] MEDS: cefTRIAXone(*) 1 GM VIAL 1 GM in NS(*) 0.9% 100 ML ADDVANT BAG 100 ML IVPB SCH (10:35)
[2017-12-16] MEDS: NS(*) 0.9% 100 ML BAG 100 ML IVPB PRN (10:35)
[2017-12-16 10:43] VITALS: BP 127/88
[2017-12-16] MEDS: HEPARIN FLSH (PORT) 500 UN/5ML IVP PRN (11:11)
[2017-12-17] MEDS: cefTRIAXone(*) 1 GM VIAL 1 GM in NS(*) 0.9% 100 ML ADDVANT BAG 100 ML IVPB SCH (10:07)
[2017-12-17] MEDS: NS(*) 0.9% 100 ML BAG 100 ML IVPB PRN (10:08)
[2017-12-17 10:11] VITALS: BP 127/88
[2017-12-17] MEDS: HEPARIN FLSH (PORT) 500 UN/5ML IVP PRN (13:00)
[2017-12-18 10:28] VITALS: BP 141/80
[2017-12-18] MEDS: HEPARIN FLSH (PORT) 500 UN/5ML IVP PRN (10:39)
[2017-12-18] MEDS: NS(*) 0.9% 100 ML BAG 100 ML IVPB PRN (10:39)
[2017-12-18] MEDS: cefTRIAXone(*) 1 GM VIAL 1 GM in NS(*) 0.9% 100 ML ADDVANT BAG 100 ML IVPB SCH (10:39)
[2017-12-18 11:16] VITALS: BP 150/84
[~2017-12-19 12:00] MED LIST changes: +ALTEPLASE RECOMB 2 MG VIAL IVP PRN; +DEXTROSE 5%(*) 100 ML BAG 100 ML IVPB PRN; +LIDOCAINE/SOD BICARB 8.4% SYR ID PRN; +NS(*) 0.9% 500 ML BAG 500 ML IV PRN; +WATER FOR INJ,STERILE 20 ML IVP PRN
[2017-12-19 13:01] VITALS: BP 138/89
[2017-12-19] MEDS: cefTRIAXone(*) 1 GM VIAL 1 GM in NS(*) 0.9% 100 ML ADDVANT BAG 100 ML IVPB SCH (13:04)
[2017-12-19] MEDS: NS(*) 0.9% 100 ML BAG 100 ML IVPB PRN (13:04)
[2017-12-19] MEDS: HEPARIN FLSH (PORT) 500 UN/5ML IVP PRN (13:05)
[2017-12-19 13:36] VITALS: BP 141/85
[2017-12-20] MEDS: NS(*) 0.9% 100 ML BAG 100 ML IVPB PRN (10:05)
[2017-12-20] MEDS: cefTRIAXone(*) 1 GM VIAL 1 GM in NS(*) 0.9% 100 ML ADDVANT BAG 100 ML IVPB SCH (10:05)
[2017-12-20 10:08] VITALS: BP 138/79
[2017-12-20] MEDS: HEPARIN FLSH (PORT) 500 UN/5ML IVP PRN (10:51)
== END 2018-03-09 15:48 | disposition home or self-care (01) ==
LOC: SPU 12:00
PROVIDERS: ATTEND Internal Medicine
DX: J18.9 Pneumonia, unspecified organism (principal)
CPT/HCPCS: 96365; J0696; J1642; J7050; 86304

== ENCOUNTER → 2017-12-19 | Outpatient (CLI) | payer BC ==
[2017-12-05 09:11] VITALS: BMI 24.5
--- NOTE | 2017-12-19 18:33 | RADIOLOGY IMAGING REPORT ---
FACILITY: [facility] - [place] PATIENT NAME: Shelby Cabrera : 1960 MR: [id number] V: [id number] EXAM DATE: ORDERING PHYSICIAN: MILY HIGHTOWER TECHNOLOGIST: [place] [facility] [place] Patient: Shelby Cabrera : 1960 Visit/Account:[id number] Date of Sevice: 12/19/2017 CHEST PA AND LAT Additional pertinent History: Pleural effusions COMPARISON STUDIES: 12/09/2017 FINDINGS: Support lines and catheters: Right chest [id number]-[id number] catheter Lungs and Pleura: Bilateral effusions. Right effusion slightly greater than the left. Right effusi on extends up to the posterior lateral right seventh rib. Associated atelectasis and volume loss. P revious right chest tube has been removed. Soft tissue blunting of the upper medial right apex. Heart and vasculature: Negative. Darlene and Mediastinum: Negative. Bones and Chest wall: Negative. Upper Abdomen: Negative. IMPRESSION: 1. No significant interval change in the appearance of the right chest with respect to the effusion and underlying atelectasis/. 2. Left effusion increasing in size compared to previous study. 3. Apparent loculated effusion at the right apex medially. This is unchanged when compared to previ ous study. Report Dictated By: Bk Chow MD at 12/19/2017 6:23 PM Report E-Signed By: Bk Chow MD at 12/19/2017 6:28 PM WSN:[email or web address]
== END ==
LOC: RAD 17:44
PROVIDERS: ATTEND Surgery
DX: J90 Pleural effusion, not elsewhere classified (principal); J98.11 Atelectasis
CPT/HCPCS: 71046

== ENCOUNTER → 2017-12-19 | Outpatient (CLI) | payer BC ==
[2017-12-05 09:11] VITALS: BMI 24.5
== END ==
LOC: RAD 17:35
PROVIDERS: ATTEND Surgery
DX: Z02.9 Encounter for administrative examinations, unspecified (principal)

== ENCOUNTER → 2017-12-23 | Outpatient (CLI) | payer BC ==
[2017-12-05 09:11] VITALS: BMI 24.5
[~2017-12-23] MED LIST changes: -ALTEPLASE RECOMB 2 MG VIAL IVP PRN; -DEXTROSE 5%(*) 100 ML BAG 100 ML IVPB PRN; -LIDOCAINE/SOD BICARB 8.4% SYR ID PRN; -NS(*) 0.9% 500 ML BAG 500 ML IV PRN; -WATER FOR INJ,STERILE 20 ML IVP PRN
--- NOTE | 2017-12-23 10:59 | RADIOLOGY IMAGING REPORT ---
FACILITY: [facility] PATIENT NAME: Shelby Cabrera : 1960 MR: [id number] V: [id number] EXAM DATE: ORDERING PHYSICIAN: ADDIE DOLAN TECHNOLOGIST: Location: [facility] [place] Patient: Shelby Cabrera : 1960 Visit/Account:[id number] Date of Sevice: 12/23/2017 CHEST PA AND LAT COMPARISON: December 19, 2017 HISTORY: Pleural effusion with history of interstitial lung disease FINDINGS: CARDIAC/VASC: No cardiac silhouette abnormality or cardiomegaly. Unremarkable pulmonary vasculatu re. MEDIASTINUM: No visible mass or adenopathy. LUNGS/PLEURA: Small bilateral pleural effusions are stable or slightly smaller. Stable right-sided pleural thickening. Bibasilar opacities are stable. No new focal airspace disease. BONES: No fracture or visible bony lesion. OTHER: Right IJ approach single lumen port with tip in the projection of the right atrium, stable. IMPRESSION: Small pleural effusions are stable or slightly smaller compared to 12/19/2017. Report Dictated By: Malick Clark at 12/23/2017 10:50 AM Report E-Signed By: Malick Clark at 12/23/2017 10:54 AM WSN:[email or web address]
== END ==
LOC: RAD 10:04
PROVIDERS: ATTEND Physician Assistant
DX: J84.9 Interstitial pulmonary disease, unspecified (principal); J91.8 Pleural effusion in other conditions classified elsewhere
CPT/HCPCS: 71046

== ENCOUNTER 2017-12-27 09:35 | Emergency (ER) | payer BC ==
[2017-12-05 09:11] VITALS: Wt 60.8 kg
--- NOTE | 2017-12-27 09:43 | ER Report ---
History and Physical Time Seen By MD: 09:43 Hx. of Stated Complaint: INCREASED SOB - HX OF FLUID BUILD UP IN CHEST CAVITY THAT REQUIRES DRAINING HPI/ROS CHIEF COMPLAINT: Shortness of breath HISTORY OF PRESENT ILLNESS: Patient is a 57-year-old female with a history of ovarian cancer and metastasis to the lungs. Patient reports that she became increasingly more short of breath over the past several days especially last night with left-sided pain. Patient has required thoracenteses in the past the last of which was done on the left lung 2.5 weeks ago. Patient reports that the last time that she had a right lung drained was quite some time ago. Patient is afebrile, tachycardic at time of evaluation. She is on oxygen currently. REVIEW OF SYSTEMS: Constitutional: No fever, no chills. Eyes: No discharge. ENT: No sore throat. Cardiovascular: No chest pain, no palpitations. Respiratory: No cough, + shortness of breath. Gastrointestinal: No abdominal pain, no vomiting. Genitourinary: No hematuria. Musculoskeletal: No back pain. Skin: No rashes. Neurological: No headache. Allergies: Coded Allergies: carboplatin (Verified Allergy, Severe, RASH, 12/27/17) HEART RATE AND BLOOD PRESSURE ELEVATION ketorolac (Verified Allergy, Mild, RASH, 12/27/17) face and ears fell tingly and she felt like she was getting a rash. Home Meds Reported Medications Metoprolol Succinate (METOPROLOL SUCCINATE) 25 Mg Tab.er.24h, 1 TAB PO QDAY, TAB 12/12/17 Levothyroxine Sodium (LEVOTHYROXINE SODIUM) 25 Mcg Tablet, 25 MCG PO QDAY 04/07/15 Discontinued Scripts Ceftriaxone Sodium (CEFTRIAXONE) 1 Gm Vial, 1 GM IVP Q24H@1400 for 9 Days, VIAL Prov:KELLY HENRIQEUZ MD 12/12/17 Hx Smoking: No Smoking Status: Never Smoker Exposure to Second Hand Smoke?: Yes Hx Substance Use Disorder: No Hx Alcohol Use: Yes Constitutional Vital Sign - Last 24 Hours 12/27/17 12/27/17 12/27/17 12/27/17 09:38 09:44 10:26 10:26 Pulse 113 103 Resp 20 20 B/P (MAP) 155/93 Pulse Ox 91 93 O2 Delivery Nasal Cannula Nasal Cannula O2 Flow Rate 3.0 3.0 12/27/17 12/27/17 10:32 11:30 Pulse 107 105 Resp 20 26 B/P (MAP) 138/76 (96) Pulse Ox 92 Physical Exam General Appearance: The patient is alert, has no immediate need for airway protection and no signs of toxicity. Mild distress secondary to dyspnea Eyes: Pupils equal and round no pallor or injection. ENT, Mouth: Mucous membranes are moist. Respiratory: + diminished lung sounds at bases Cardiovascular: Regular rate and rhythm. [ ] Gastrointestinal: Abdomen is soft and non tender, no masses, bowel sounds normal. Neurological: No focal neuro deficits Skin: Warm and dry, no rashes. Musculoskeletal: Neck is supple non tender. Extremities are nontender, nonswollen and have full range of motion. DIFFERENTIAL DIAGNOSIS: After history and physical exam differential diagnosis was considered for pleural effusions, pneumothoraces, pneumonia, ascites, incr eased metastatic burden Medical Decision Making Data Points Result Diagram: 12/27/17 0945 12/27/17 0945 Laboratory Hematology Test 12/27/17 09:45 Red Blood Count 4.13 M/uL (4.17-5.56) Mean Corpuscular Volume 91.9 fL (80.0-96.0) Mean Corpuscular Hemoglobin 30.5 pg (26.0-33.0) Mean Corpuscular Hemoglobin Concent 33.2 g/dL (32.0-36.0) Red Cell Distribution Width 17.7 % (11.5-14.5) Mean Platelet Volume 8.4 fL (7.2-11.1) Neutrophils (%) (Auto) 77.4 % (39.4-72.5) Lymphocytes (%) (Auto) 8.6 % (17.6-49.6) Monocytes (%) (Auto) 11.2 % (4.1-12.4) Eosinophils (%) (Auto) 2.4 % (0.4-6.7) Basophils (%) (Auto) 0.4 % (0.3-1.4) Nucleated RBC Relative Count (auto) 0.1 /100WBC Neutrophils # (Auto) 2.9 K/uL (2.0-7.4) Lymphocytes # (Auto) 0.3 K/uL (1.3-3.6) Monocytes # (Auto) 0.4 K/uL (0.3-1.0) Eosinophils # (Auto) 0.1 K/uL (0.0-0.5) Basophils # (Auto) 0.0 K/uL (0.0-0.1) Nucleated RBC Absolute Count (auto) 0.01 K/uL Prothrombin Time 13.2 seconds (12.0-14.4) Prothromb Time International Ratio 1.00 Activated Partial Thromboplast Time 33 seconds (23-35) Sodium Level 138 mmol/L (137-145) Potassium Level 3.7 mmol/L (3.5-5.0) Chloride Level 98 mmol/L (98-107) Carbon Dioxide Level 30 mmol/L (22-31) Blood Urea Nitrogen 14 mg/dl (7-18) Creatinine 0.80 mg/dl (0.52-1.04) Glomerular Filtration Rate Calc > 60.0 Random Glucose 134 mg/dl (75-110) Calcium Level 9.8 mg/dl (8.4-10.2) Total Bilirubin 0.8 mg/dl (0.2-1.3) Aspartate Amino Transf (AST/SGOT) 53 U/L (0-35) Alanine Aminotransferase (ALT/SGPT) 50 U/L (0-56) Alkaline Phosphatase 433 U/L (0-126) B-Type Natriuretic Peptide 8 pg/ml (0-100) Total Protein 9.1 g/dl (6.3-8.2) Albumin 4.0 g/dl (3.5-5.0) Chemistry Test 12/27/17 09:45 White Blood Count 3.7 k/uL (4.5-11.0) Red Blood Count 4.13 M/uL (4.17-5.56) Hemoglobin 12.6 g/dL (12.0-16.0) Hematocrit 38.0 % (34.0-47.0) Mean Corpuscular Volume 91.9 fL (80.0-96.0) Mean Corpuscular Hemoglobin 30.5 pg (26.0-33.0) Mean Corpuscular Hemoglobin Concent 33.2 g/dL (32.0-36.0) Red Cell Distribution Width 17.7 % (11.5-14.5) Platelet Count 170 K/uL (150-450) Mean Platelet Volume 8.4 fL (7.2-11.1) Neutrophils (%) (Auto) 77.4 % (39.4-72.5) Lymphocytes (%) (Auto) 8.6 % (17.6-49.6) Monocytes (%) (Auto) 11.2 % (4.1-12.4) Eosinophils (%) (Auto) 2.4 % (0.4-6.7) Basophils (%) (Auto) 0.4 % (0.3-1.4) Nucleated RBC Relative Count (auto) 0.1 /100WBC Neutrophils # (Auto) 2.9 K/uL (2.0-7.4) Lymphocytes # (Auto) 0.3 K/uL (1.3-3.6) Monocytes # (Auto) 0.4 K/uL (0.3-1.0) Eosinophils # (Auto) 0.1 K/uL (0.0-0.5) Basophils # (Auto) 0.0 K/uL (0.0-0.1) Nucleated RBC Absolute Count (auto) 0.01 K/uL Prothrombin Time 13.2 seconds (12.0-14.4) Prothromb Time International Ratio 1.00 Activated Partial Thromboplast Time 33 seconds (23-35) Glomerular Filtration Rate Calc > 60.0 Calcium Level 9.8 mg/dl (8.4-10.2) Total Bilirubin 0.8 mg/dl (0.2-1.3) Aspartate Amino Transf (AST/SGOT) 53 U/L (0-35) Alanine Aminotransferase (ALT/SGPT) 50 U/L (0-56) Alkaline Phosphatase 433 U/L (0-126) B-Type Natriuretic Peptide 8 pg/ml (0-100) Total Protein 9.1 g/dl (6.3-8.2) Albumin 4.0 g/dl (3.5-5.0) Coagulation Test 12/27/17 09:45 Prothrombin Time 13.2 seconds Prothromb Time International Ratio 1.00 Activated Partial Thromboplast Time 33 seconds EKG/Im[facility] Patient: Shelby Cabrera : 1960 Visit/Account:[id number] Date of Sevice: 12/27/2017 CHEST PA AND LAT COMPARISON: December 23, 2017 HISTORY: RESP DISTRESS FINDINGS: CARDIAC/VASC: Heart size appears larger than previous and the vasculature is indistinct which is new from previous. Findings are suggestive of developing pulmonary edema. MEDIASTINUM: No visible mass or adenopathy. LUNGS/PLEURA: Bilateral pleural effusions, including a small amount of fluid overlying the right apex. On the left this has increased in size. On the right this is stable.. There is adjacent atelectasis or consolidation in the lung bases which is very similar to previous. BONES: No fracture or visible bony lesion. OTHER: Single-lumen right IJ approach venous catheter tip in the projection of the upper right atrium.. IMPRESSION: 1. Increased heart size and new pulmonary venous distention suggesting early pulmonary edema. 2. Moderate left pleural effusion, increased in size compared to December 23. The right pleural effusion is stable. Bibasilar atelectasis is unchanged. ED Course/Re-evaluation ED Course Patient is a 57-year-old female with a history of ovarian cancer with metastases to the lungs with recurrent pulmonary effusions here with increased shortness breath. Patient was on 2 L nasal cannula maintaining oxygen saturations levels of greater than 94%. She reports that since last night she had increased shortness breath and chest discomforts. X-ray imaging showed mild increase of pulmonary effusions on the left side however right-sided effusion was stable compared to prior imaging. Last x-ray was taken on December 23. Upon evaluation of the imaging and the effusion positioning, I was concerned that attempted thoracentesis at bedside may pose significant risk of secondary injury. I discussed this patient with Dr. Vargas who agreed with this and that the patient would likely need radiographic guidance for safety. Patient does have an appointment scheduled for next Friday and I urged her to contact them sooner if symptoms worsened. She was given a DuoNeb with some relief of symptoms so she was given a spacer and an albuterol inhaler for home treatment and symptom management. Patient was stable at time of discharge, maintaining oxygen saturations greater than 93% on 2 L nasal cannula. Decision to Disposition Date: Dec 27, 2017 Decision to Disposition Time: 12:00 Depart Departure Latest Vital Signs Vital Signs Date Time Temp Pulse Resp B/P (MAP) Pulse Ox O2 Delivery O2 Flow Rate FiO2 12/27/17 11:30 105 26 138/76 (96) 92 12/27/17 10:26 Nasal Cannula 3.0 Impression: Primary Impression: Shortness of breath Additional Impression: Pleural effusion, bilateral Condition: Improved Disposition: HOME OR SELF-CARE Referrals: ADDIE DOLAN PA-C (PCP) Patient Instructions: Pleural Effusion (ED) Additional Instructions: Please follow up closely with your family doctor and keep her appointment for thoracentesis. You may use an inhaler 2 puffs every 4 hours as needed for shortness of breath. Please return promptly if you develop increased shortness breath, chest pains, fevers, abdominal pain, nausea, vomiting. Problem Qualifiers PAULINE GRIJALVA DO Dec 27, 2017 09:43
[2017-12-27 10:10] LABS: PLATELET COUNT, AUTOMATED 170 K/uL (150-450)
[2017-12-27] MEDS ORDERED: ALBUTEROL/IPRATROPIUM 3 ML NEB NEB ONE (10:25)
--- NOTE | 2017-12-27 10:25 | RADIOLOGY IMAGING REPORT ---
FACILITY: [facility] PATIENT NAME: Shelby Cabrera : 1960 MR: [id number] V: [id number] EXAM DATE: ORDERING PHYSICIAN: PAULINE GRIJALVA TECHNOLOGIST: Location: [facility] [place] Patient: Shelby Cabrera : 1960 Visit/Account:[id number] Date of Sevice: 12/27/2017 CHEST PA AND LAT COMPARISON: December 23, 2017 HISTORY: RESP DISTRESS FINDINGS: CARDIAC/VASC: Heart size appears larger than previous and the vasculature is indistinct which is n ew from previous. Findings are suggestive of developing pulmonary edema. MEDIASTINUM: No visible mass or adenopathy. LUNGS/PLEURA: Bilateral pleural effusions, including a small amount of fluid overlying the right ape x. On the left this has increased in size. On the right this is stable.. There is adjacent atelectasi s or consolidation in the lung bases which is very similar to previous. BONES: No fracture or visible bony lesion. OTHER: Single-lumen right IJ approach venous catheter tip in the projection of the upper right atrium .. IMPRESSION: 1. Increased heart size and new pulmonary venous distention suggesting early pulmonary edema. 2. Moderate left pleural effusion, increased in size compared to December 23. The right pleural effus ion is stable. Bibasilar atelectasis is unchanged. Report Dictated By: Malick Clark at 12/27/2017 10:18 AM Report E-Signed By: Malick Clark at 12/27/2017 10:22 AM WSN:[id number]
[2017-12-27] MEDS ORDERED: ALBUTEROL 8 GM INHALER INH ONE (11:20)
[2017-12-27 11:30] VITALS: BP 138/76
== END 2017-12-27 12:05 | disposition home or self-care (01) ==
LOC: ER 09:56
DX: J90 Pleural effusion, not elsewhere classified (principal); R06.02 Shortness of breath
CPT/HCPCS: 71046; 83880; 85025; 85610; 85730; 94640; 99283; J3535; J7620; 82040; 82247; 82310; 82374; 82435; 82565; 82947; 84075; 84132; 84155; 84295; 84450; 84460; 84520

== ENCOUNTER → 2017-12-31 | Outpatient (CLI) | payer BC ==
[2017-12-05 09:11] VITALS: BMI 24.5
--- NOTE | 2017-12-31 15:33 | RADIOLOGY IMAGING REPORT ---
FACILITY: [facility] PATIENT NAME: Shelby Cabrera : 1960 MR: [id number] V: [id number] EXAM DATE: ORDERING PHYSICIAN: ADDIE DOLAN TECHNOLOGIST: Location: [facility] Patient: Shelby Cabrera : 1960 Visit/Account:[id number] Date of Sevice: 12/31/2017 CHEST SPECIAL VIEW HISTORY: Postthoracentesis COMPARISON: X-ray examination chest December 27. FINDINGS: Cardiac silhouette is stable. Small bilateral pleural effusions are noted, right greater than left w ith concomitant bibasilar airspace consolidation. No evidence of pneumothorax following thoracentesi s. Vague opacity projects over the left upper lung correlating to the groundglass consolidation seen from the previous CT. IMPRESSION: No evidence of pneumothorax following left-sided thoracentesis. Small bilateral pleural effusions wi th concomitant bibasilar airspace consolidation, right greater than left. Report Dictated By: Catalino Morales MD at 12/31/2017 3:26 PM Report E-Signed By: Catalino Morales MD at 12/31/2017 3:30 PM WSN:[id number]
== END ==
LOC: US 00:31
PROVIDERS: ATTEND Physician Assistant
DX: J91.8 Pleural effusion in other conditions classified elsewhere (principal)
CPT/HCPCS: 32555; 71046; A7048

== ENCOUNTER 2018-02-12 08:52 | Outpatient (RCR) | payer BC ==
[2017-12-05 09:11] VITALS: Wt 58.6 kg
[2017-12-17 09:01] VITALS: BP 147/87
--- NOTE | 2017-12-17 21:44 | ONCOLOGY CONSULTATION ---
EVENT DATE: December 17, 2017 CHIEF COMPLAINT Shortness of breath. REASON FOR VISIT Ovarian cancer. HISTORY OF PRESENT ILLNESS Shelby is a delightful, 57-year-old female with a history of ovarian cancer that has been treated since 2016 between [place], [place], and [place], [place]. Please see her Oncology History below. Today, Shelby reports that she is feeling pretty good all things considered. Most recently, she has been receiving palliative oxaliplatin. She reports some cold sensitivity and very early changes of numbness in her fingertips that is not dependent on temperature. She does report some fatigue. She gets short of breath with exertion. She has an occasional cough, but no hemoptysis. She reports no significant pain today. Her bowel habits have been relatively regular. She recently was admitted to the hospital for bacteremia thought to be from a likely source versus pneumonia, per report. She is still finishing up with intravenous antibiotics. The patient would like to transfer her oncologic care to my clinic here in [place]. REVIEW OF SYSTEMS Otherwise negative, and all systems were reviewed. 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 a. Original presentation during preparation for cholecystectomy for cholelithiasis. At time of surgery, she was found to have disseminated peritoneal malignancy. Omental biopsy performed at that time showed high-grade serous ovarian carcinoma. b. Patient initially receives three cycles of neoadjuvant chemotherapy with CARBOPLATIN, paclitaxel, and Avastin. c. July 2015, patient undergoes cytoreductive surgery. d. Patient receives additional four cycles of CARBOPLATIN, paclitaxel, and Avastin. e. Patient is placed on maintenance Avastin from October 2015 until May 2016. f. May 2016, disease recurrence. Patient is placed back on CARBOPLATIN, paclitaxel, and Avastin from May 2016 to July 2016. g. July 25, 2016: CARBOPLATIN reaction. h. Patient continues on Taxol and Avastin for one additional treatment. i. October 2016: Patient is placed on niraparib until January 2017 (discontinued due to profound thrombocytopenia requiring transfusion). j. February 2017 to May 2017: Patient receives single-agent Doxil. k. Subsequent CA-125 was noted to be rising. CT scan reveals evidence of progression of disease. Patient is switched to palliative oxaliplatin. l. Patient continues on palliative oxaliplatin. m. September 2017: Placement of PleurX catheter for recurrent pleural effusion. PAST MEDICAL HISTORY 1. Ovarian cancer as above. 2. Hypothyroidism. 3. History of renal stenting due to retroperitoneal lymphadenopathy. CURRENT MEDICATIONS 1. Ceftriaxone 1 g daily. 2. Cholecalciferol. 3. Levothyroxine. 4. Melatonin p.r.n. 5. Co-Q10. ALLERGIES CARBOPLATIN as well as TORADOL. SOCIAL HISTORY The patient occasionally drinks alcohol. There is no history of smoking or illicit drug use. FAMILY HISTORY There is a history of lung cancer in her mother. VITAL SIGNS Temperature 98.6, blood pressure 127/88, heart rate is 57, respirations 16, oxygen saturation is 95% on 1.5L nasal cannula. PHYSICAL EXAMINATION GENERAL: Patient is alert and oriented times three, no apparent distress, sitting in the exam room chair. She is interactive and very pleasant. HEENT: Anicteric sclerae. NEUROLOGIC: Grossly nonfocal, and her gait is normal. LUNGS: Absent breath sounds on the right, and absent breath sounds in the lower lung field on the left. HEART: Regular rate and rhythm. SKIN: No concerning rash or lesion. LABORATORY STUDIES Reviewed per the paper record. IMAGING Please see Oncology History. ASSESSMENT AND PLAN 1. Stage IV serous ovarian carcinoma. I had a good visit with the patient and her daughter today. Symptomatically, she continues to do pretty well, per her report. She states that she thinks she is tolerating the oxaliplatin with reasonable toxicity. She does have expected cold sensitivity and fatigue. 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 This has not been particularly bothersome to date. We spent time today reviewing her oncology history, which is noted above. She has received carboplatin, paclitaxel, and Avastin. She has also received niraparib as well as Doxil prior to her current therapy with oxaliplatin. As discussed, I have reviewed reports of prior imaging as well as imaging most recently performed during her hospitalization. It will require review of the images themselves in order to determine response to treatment. Her CA-125 has gone up slightly from the 80s to the low 100s. The recurrent pleural effusion is concerning for lack of current response to chemotherapy. We spent time discussing her options ongoing. These would include cytotoxic chemotherapy. She has not yet received gemcitabine. We did discuss the possibility of using checkpoint inhibitor therapy with pembrolizumab (would need to check PD-L1, perhaps from pleural fluid vs prior tissue). Another possibility would be for her to consider a clinical trial. As this is not available here in [place], I would want to review potential trial availability in [facility] as well as pino Carvajal at the [facility]. The patient has not received chemotherapy for about four to five weeks due to her recent hospitalization for infection. Once her above-mentioned imaging is reviewed, I will be back in touch with her. She will follow up here in about one week with Emilia Kline NP. 2. Recurrent pleural effusion. Again, concerning for lack of response to current chemotherapy. Her exam today is consistent with a rather large pleural effusion on the right. She is surprisingly comfortable at rest, but she does get winded with exertion. She is planning to meet with Pulmonary soon, and she also has plans potentially to have an Aspira catheter addressed by Surgery (Dr. Ingram). We will make an official referral to Dr. Ingram today. Hopefully, we can get the drain working. If not, it may be in her best interest to have another one placed. She has also expressed interest in just having periodic therapeutic thoracentesis performed. This is certainly a personal choice that she will need to make. I spent a total of 60 minutes of time [id number] with the patient and her daughter today, and 55 minutes of this was spent in direct counseling and coordination of care. [place]
[2017-12-25 10:57] VITALS: BP 154/90
[2017-12-25] MEDS: HEPARIN FLSH (PORT) 500 UN/5ML IVP PRN (12:12)
--- NOTE | 2017-12-26 20:24 | ONCOLOGY FOLLOW UP NOTE ---
EVENT DATE: December 25, 2017 CHIEF COMPLAINT Patient is seen today in followup for stage IV serous ovarian cancer. She states that she believes her pleural effusion has recurred. HISTORY OF PRESENT ILLNESS Patient is a 57-year-old female who was seen today in followup for stage IV serous ovarian carcinoma. She has been treated previously since 2016 between [place], [place], and [place], [place]. She has recently transferred her care to the [facility]. She was hospitalized for bacteremia and completed a course of IV Rocephin on 12/20/17. Her last thoracentesis was on 12/09/17, recovering 950 mL. She had a PleurX catheter, but did not feel it was working well. She saw Dr. Ingram, who found it to be "clogged up," and this was removed on 12/19/17. She believes that her pleural effusions are recurring, right greater than left. Most recent CA-125 has increased from the low 100s to 185. She has an appointment to see Pulmonary in [place] on 12/30/17. She presents today to discuss options for care. 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 a. Original presentation during preparation for cholecystectomy for cholelithiasis. At time of surgery, she was found to have disseminated peritoneal malignancy. Omental biopsy performed at that time showed high-grade serous ovarian carcinoma. b. Patient initially receives three cycles of neoadjuvant chemotherapy with CARBOPLATIN, paclitaxel, and Avastin. c. July 2015, patient undergoes cytoreductive surgery. d. Patient receives additional four cycles of CARBOPLATIN, paclitaxel, and Avastin. e. Patient is placed on maintenance Avastin from October 2015 until May 2016. f. May 2016, disease recurrence. Patient is placed back on CARBOPLATIN, paclitaxel, and Avastin from May 2016 to July 2016. g. July 25, 2016: CARBOPLATIN reaction. h. Patient continues on Taxol and Avastin for one additional treatment. i. October 2016: Patient is placed on niraparib until January 2017 (discontinued due to profound thrombocytopenia requiring transfusion). j. February 2017 to May 2017: Patient receives single-agent Doxil. k. Subsequent CA-125 was noted to be rising. CT scan reveals evidence of progression of disease. Patient is switched to palliative oxaliplatin. l. Patient continues on palliative oxaliplatin. m. September 2017: Placement of PleurX catheter for recurrent pleural effusion. n. Oxaliplatin discontinued in December 2017 due to progression of disease. PAST MEDICAL HISTORY 1. Ovarian cancer as above. 2. Hypothyroidism. 3. History of renal stenting due to retroperitoneal lymphadenopathy. FAMILY HISTORY Mother was diagnosed with lung cancer. SOCIAL HISTORY Patient is . They have three children. 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 She does not smoke. She drinks alcohol rarely. MEDICATIONS 1. Macrodantin 50 mg at bedtime. 2. Metoprolol 25 mg daily. 3. Levothyroxine 25 mcg daily. 4. Melatonin p.r.n. 5. Co-Q10. ALLERGIES CARBOPLATIN and TORADOL. REVIEW OF SYSTEMS A 12-point review of systems is performed and is negative except as stated above. She is on home oxygen continuous. PHYSICAL EXAMINATION VITAL SIGNS: Blood pressure 150/90, pulse 108, temp afebrile, respiratory 20, O2 sat 88% on room air. HEAD: Normocephalic, atraumatic. EYES: Sclerae anicteric. MOUTH: Moist mucous membranes without lesions. NECK: No palpable adenopathy. CARDIOVASCULAR: Heart rate regular with mild tachycardia, 108 per minute. LUNGS: Absent breath sounds in bases of both lungs. ABDOMEN: Soft, nontender. Active bowel sounds. EXTREMITIES: No edema. NEUROLOGIC: Nonfocal. LABORATORY No lab today. IMPRESSION AND PLAN The patient is a 57-year-old female with: 1. Stage IV ovarian cancer who has been heavily pretreated (carboplatin, Taxol, Avastin, niraparib, Doxel, and oxaliplatin. She recently has progressed as per review of scan comparisons. CA-125 has [address] Dr. Kaminski has discussed beginning treatment with three different options: 1) Return to Taxol and Avastin. It has been approximately two years since she received that. She has minimal peripheral neuropathy and believes this is more from the most recent oxaliplatin. 2) Topotecan and Avastin. We reviewed that this is very myelosuppressive. CBC last week was within normal limits, but previously had been low. 3) Possible pembrolizumab. Patient and her family will consider this, and she will be seen again next week to review options again. Markers for PDL-1 and MSI will need to be sent. 2. Bacteremia. Blood cultures times two are done today to make sure that her bacteremia has resolved. She continues on prophylactic macrodantin. 3. Pleural effusions. Patient had PleurX catheter removed on 12/19/17 as it was nonfunctional. Last thoracentesis was on 12/09/17, and 950 mL were removed. She feels that the fluid is building back up. She will be scheduled for an ultrasound-guided thoracentesis next week. The fluid will be sent for PDL1 testing and MSI so that we can assess the possibility for pembrolizumab. 4. Patient will follow up with Dr. Kaminski in one week for continued care, earlier if there is a problem. FADIAD
[2017-12-31 13:01] VITALS: BP 156/92
--- NOTE | 2018-01-02 20:10 | ONCOLOGY FOLLOW UP NOTE ---
EVENT DATE: December 31, 2017 CHIEF COMPLAINT Follow up for stage IV serous ovarian cancer. HISTORY OF PRESENT ILLNESS Patient is a 57-year-old female who was seen today in followup for stage IV serous ovarian carcinoma. She has been treated since 2016 between [place], [place], and [place], [place]. She recently transferred her care to the [facility]. She was treated with IV antibiotics for bacteremia, and last dose was on 12/20/17. She was seen in the Emergency Room on 12/27/17 for shortness of breath. Chest x-ray showed the left pleural effusion had increased, but it was decided not to do a thoracentesis at bedside. She is scheduled for an ultrasound-guided thoracentesis later today. She saw Dr. Frankel, Pulmonary, on 12/30/17. CT of the chest was done, but we do not have those results. She will follow up with him next week. She presents with her sisters to discuss the upcoming plan. She and her sisters had questions about [id number] but we relayed that there was no scientific data associated with this process. 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 a. Original presentation during preparation for cholecystectomy for cholelithiasis. At time of surgery, she was found to have disseminated peritoneal malignancy. Omental biopsy performed at that time showed high-grade serous ovarian carcinoma. b. Patient initially receives three cycles of neoadjuvant chemotherapy with CARBOPLATIN, paclitaxel, and Avastin. c. July 2015, patient undergoes cytoreductive surgery. d. Patient receives additional four cycles of CARBOPLATIN, paclitaxel, and Avastin. e. Patient is placed on maintenance Avastin from October 2015 until May 2016. f. May 2016, disease recurrence. Patient is placed back on CARBOPLATIN, paclitaxel, and Avastin from May 2016 to July 2016. g. July 25, 2016: CARBOPLATIN reaction. h. Patient continues on Taxol and Avastin for one additional treatment. i. October 2016: Patient is placed on niraparib until January 2017 (discontinued due to profound thrombocytopenia requiring transfusion). j. February 2017 to May 2017: Patient receives single-agent Doxil. k. Subsequent CA-125 was noted to be rising. CT scan reveals evidence of progression of disease. Patient is switched to palliative oxaliplatin. l. Patient continues on palliative oxaliplatin. m. September 2017: Placement of PleurX catheter for recurrent pleural effusion. n. Oxaliplatin discontinued in December 2017 due to progression of disease. PAST MEDICAL HISTORY 1. Ovarian cancer as above. 2. Hypothyroidism. 3. History of renal stenting due to retroperitoneal lymphadenopathy. FAMILY HISTORY Mother was diagnosed with lung cancer. SOCIAL HISTORY Patient is . They have three children. 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 She does not smoke. She drinks alcohol rarely. MEDICATIONS 1. Macrodantin 50 mg at bedtime. 2. Metoprolol 25 mg daily. 3. Levothyroxine 25 mcg daily. 4. Melatonin p.r.n. 5. Co-Q10. ALLERGIES CARBOPLATIN and TORADOL. REVIEW OF SYSTEMS A 12-point review of systems is performed and is negative except as stated above. PHYSICAL EXAMINATION VITAL SIGNS: Weight 58.6 kg. BP 156/92, P 112, R 16, temp 97.8, O2 sat 91% on 3L of oxygen. HEAD: Normocephalic, atraumatic. EYES: Sclerae anicteric. MOUTH: Moist mucous membranes. NECK: Supple. No palpable adenopathy. CARDIOVASCULAR: Heart rate regular with mild tachycardia, 112 per minute. LUNGS: Decreased breath sounds in both bases of lungs. EXTREMITIES: No edema. NEUROLOGIC: Nonfocal. LABORATORY CBC on 12/27/17 showed a WBC of 3.7, hemoglobin 12.6, hematocrit 38.0, platelets 170,000. CMP was within normal limits except for an increased alkaline phosphatase of 433, but decreased from previous. IMPRESSION AND PLAN The patient is a 57-year-old female with stage IV ovarian cancer who has been heavily pretreated (carboplatin, Taxol, Avastin, niraparib, Doxil, and oxaliplatin). Recent progression on review of scans with an increase in the CA- 125. 1. Ovarian cancer. Dr. Kaminski also met with the patient and her sisters today. At this point, it is felt that returning to Taxol and Avastin would be in her best interest. She has minimal peripheral neuropathy and feels this may be more related to the previous oxaliplatin. Patient is in agreement for this. 2. Pleural effusion. She is scheduled for an ultrasound-guided thoracentesis today. Fluid will be sent for [employer] testing, which will also include MSI and PDL1 so that further options for treatment could be considered. 3. Bacteremia. She was admitted to the hospital and found to be bacteremic. She received intravenous Rocephin, last dose on 12/20/17. She continues on Macrodantin. Recent blood cultures times two were negative. 4. Gynecologic oncology. Dr. Kaminski also discussed the possibility of clinical trial. She is referred to Dr. Malone, [facility] in the [place] area. An appointment will be made for her. 5. Follow up with Dr. Kaminski once chemotherapy has been approved to begin treatment with Taxol and Avastin. MTDD
[~2018-02-12 08:52] MED LIST changes: +ALTEPLASE RECOMB 2 MG VIAL IVP PRN; +DEXTROSE 5%(*) 100 ML BAG 100 ML IVPB PRN; +LIDOCAINE/SOD BICARB 8.4% SYR ID PRN; +NS(*) 0.9% 100 ML BAG 100 ML IVPB PRN; +NS(*) 0.9% 500 ML BAG 500 ML IV PRN; +WATER FOR INJ,STERILE 20 ML IVP PRN
[2018-02-12] MEDS: HEPARIN FLSH (PORT) 500 UN/5ML IVP PRN (09:11)
[2018-02-12 09:12] VITALS: BP 137/84
[2018-02-12 09:40] LABS: PLATELET COUNT, AUTOMATED 250 K/uL (150-450)
== END 2018-03-09 15:47 | disposition home or self-care (01) ==
LOC: SPU 08:52
PROVIDERS: ATTEND Internal Medicine Medical Oncology
DX: C56.9 Malignant neoplasm of unspecified ovary (principal); Z92.21 Personal history of antineoplastic chemotherapy; J90 Pleural effusion, not elsewhere classified; R06.02 Shortness of breath
CPT/HCPCS: 36415; 36591; 85025; 86304; 87040; 88104; 88305; 96523; 99202; 99212; J1642; 82040; 82247; 82310; 82374; 82435; 82565; 82947; 84075; 84132; 84155; 84295; 84450; 84460; 84520

== ENCOUNTER → 2018-03-04 | Outpatient (CLI) | payer BC ==
[2017-12-05 09:11] VITALS: BMI 24.5
[~2018-03-04] MED LIST changes: -ALTEPLASE RECOMB 2 MG VIAL IVP PRN; -DEXTROSE 5%(*) 100 ML BAG 100 ML IVPB PRN; -LIDOCAINE/SOD BICARB 8.4% SYR ID PRN; -NS(*) 0.9% 100 ML BAG 100 ML IVPB PRN; -NS(*) 0.9% 500 ML BAG 500 ML IV PRN; -WATER FOR INJ,STERILE 20 ML IVP PRN
[2018-03-04 14:49] LABS: INR 0.99
--- NOTE | 2018-03-04 15:46 | RADIOLOGY IMAGING REPORT ---
FACILITY: [facility] - [place] PATIENT NAME: Shelby Cabrera : 1960 MR: [id number] V: [id number] EXAM DATE: ORDERING PHYSICIAN: ADDIE DOLAN TECHNOLOGIST: Location: [facility] [place] Patient: Shelby Cabrera : 1960 Visit/Account:[id number] Date of Sevice: 03/04/2018 Technique: XR CHEST SPECIAL VIEW HISTORY: Pleural effusion Comparison studies: Chest radiograph December 31, 2017 FINDINGS: Moderate bilateral pleural effusions are noted. This is not significantly changed on the r ight and slightly worsened on the left. Basilar and right midlung atelectasis is again noted. The r ight chest port is unchanged as well as the cardiomediastinal silhouette. IMPRESSION: 1. Moderate bilateral pleural effusions. 2. Passive atelectasis. Report Dictated By: Pablito Crump DO at 03/04/2018 3:40 PM Report E-Signed By: Pablito Crump DO at 03/04/2018 3:42 PM WSN:[id number]
--- NOTE | 2018-03-04 16:20 | RADIOLOGY IMAGING REPORT ---
[place] [facility] [place] Shelby Cabrera : 1960 MR: [id number] V: [id number] EXAM DATE: ORDERING PHYSICIAN: ADDIE DOLAN TECHNOLOGIST: Location: [facility] Patient: Shelby Cabrera : 1960 Visit/Account:[id number] Date of Sevice: 03/04/2018 Exam type: XR CHEST SPECIAL VIEW History: Bilateral pleural effusions, status post left thoracentesis Comparison: PA chest March 04, 2018 at 1446. Findings: There is been a reduction in the left pleural effusion when compared the prior study. There is an ap proximate 2530% left basilar pneumothorax. Moderate right pleural effusion and bibasal airspace cons olidation remains relatively unchanged cardiac size is normal in size. The right IJ port appears unc hanged IMPRESSION: Approximately 2530% left basilar pneumothorax. Left pleural effusion is decreased Moderate right pleural effusion unchanged Bibasilar airspace consolidation unchanged Report Dictated By: Beth Henriquez MD at 03/04/2018 4:14 PM Report E-Signed By: Beth Henriquez MD at 03/04/2018 4:17 PM WSN:[email or web address]
--- NOTE | 2018-03-04 16:31 | RADIOLOGY IMAGING REPORT ---
FACILITY: [facility] - [place] PATIENT NAME: Shelby Cabrera : 1960 MR: [id number] V: [id number] EXAM DATE: ORDERING PHYSICIAN: ADDIE DOLAN TECHNOLOGIST: Location: [facility] - [place] Patient: Shelby Cabrera : 1960 Visit/Account:[id number] Date of Sevice: 03/04/2018 Exam type: THORACENTESIS History: Large left pleural effusion Comparison: PA chest performed earlier today. Findings: Informed consent was obtained. The left-sided patient's posterior thorax was prepped and draped usua l sterile fashion. Local anesthesia was accomplished 1% lidocaine. Under sonographic guidance a Dana h catheter was advanced percutaneously into the left pleural cavity. Approximately 720 mL of el-c olored pleural fluid was removed from the left pleural cavity. The post thoracentesis chest demonstr ated at 25-30% left basilar pneumothorax. The patient did state she actually felt less short of margie th when compared to earlier in the day prior to the thoracentesis. These finds were discussed with t he patient's healthcare provider. The patient's pulse oximetry was 91% following the thoracentesis ( 92% before the procedure). The patient was offered a chest tube with overnight hospital stay however she preferred to go home and monitor her pulse oximetry and is to return immediately to the hospital if she becomes acutely short of breath. The patient is also returning for a follow-up chest radiogr aph tomorrow. IMPRESSION: 1. Successful sonographically guided left-sided thoracentesis with interval removal of approximately 720 mL of el-colored pleural fluid. Post thoracentesis chest radiograph demonstrated a 25 3% basilar pneumothorax. Please see above disc ussion Report Dictated By: Beth Henriquez MD at 03/04/2018 4:19 PM Report E-Signed By: Beth Henriquez MD at 03/04/2018 4:25 PM WSN:[email or web address]
== END ==
LOC: LAB 14:00
PROVIDERS: ATTEND Physician Assistant
DX: Z01.812 Encounter for preprocedural laboratory examination (principal); J91.8 Pleural effusion in other conditions classified elsewhere; J98.11 Atelectasis; J93.83 Other pneumothorax
CPT/HCPCS: 32555; 36415; 71046; 85610; A7048

== ENCOUNTER → 2018-03-05 | Outpatient (CLI) | payer BC ==
[2017-12-05 09:11] VITALS: BMI 24.5
== END ==
LOC: LAB 10:35
PROVIDERS: ATTEND Urology
DX: Z02.9 Encounter for administrative examinations, unspecified (principal)

== ENCOUNTER → 2018-03-05 | Outpatient (CLI) | payer BC ==
[2017-12-05 09:11] VITALS: BMI 24.5
--- NOTE | 2018-03-05 15:07 | RADIOLOGY IMAGING REPORT ---
FACILITY: [facility] PATIENT NAME: Shelby Cabrera : 1960 MR: [id number] V: [id number] EXAM DATE: ORDERING PHYSICIAN: ADDIE DOLAN TECHNOLOGIST: Location: [facility] Patient: Shelby Cabrera : 1960 Visit/Account:[id number] Date of Sevice: 03/05/2018 Exam type: CHEST PA LAT History: Bilateral pleural effusions and left pneumothorax follow-up Comparison: March 04, 2018 at 3:41 PM. Findings: Again noted is an approximate 25-30% left-sided hydro-pneumothorax which does not appear appreciably improved. This appears to be partially loculated in the major fissure where there is a an additional small air-fluid level. Moderate right pleural effusion and bibasilar airspace consolidation remains relatively unchanged. The cardiac silhouette is normal. Right-sided implanted port appears unchang ed. Incompletely imaged are bilateral ureteral stents IMPRESSION: 1. Approximate 25-30% left-sided hydro- pneumothorax appears relatively unchanged. This is partiall y loculated in the major fissure Moderate right pleural effusion and bibasal airspace consolidation remains relatively unchanged. Report Dictated By: Beth Henriquez MD at 03/05/2018 2:49 PM Report E-Signed By: Beth Henriquez MD at 03/05/2018 2:56 PM WSN:[email or web address]
== END ==
LOC: RAD 12:16
PROVIDERS: ATTEND Physician Assistant
DX: J93.9 Pneumothorax, unspecified (principal); J91.8 Pleural effusion in other conditions classified elsewhere
CPT/HCPCS: 71046

== ENCOUNTER 2018-03-09 14:09 | Inpatient (IN) | payer BC ==
[2018-03-09] VITALS (7 sets, daily range): BP systolic 121–150; BP diastolic 87–98
[~2018-03-09] VITALS: Ht 157.5 cm; Wt 54.4 kg
[2018-03-09] MEDS ORDERED: NS(*) 0.9% 1000 ML BAG 1,000 ML IV PRN (14:32)
[2018-03-09] MEDS ORDERED: FLUSH 10 ML SYR IVP PRN (14:35)
[2018-03-09] MEDS ORDERED: ONDANSETRON 4 MG/2 ML VIAL IVP PRN (14:35)
[2018-03-09] MEDS ORDERED: MORPHINE 2 MG/ML SYR IVP PRN (14:35)
[2018-03-09] MEDS ORDERED: NORMOSOL R SOLN(*) 1000 ML BAG 1,000 ML IV ONE ×2 (16:00→16:42)
--- NOTE | 2018-03-09 16:04 | Gen Surgery H&P BLANK ---
GENERAL SURGERY H&P BLANK Intake Intake Chief Complaint: LEFT PNEUMOTHORAX Reviewed by: Dr. Mily Hightower Vitals: Height 5 ft 3.78 in / 162 cm Weight 122 lbs 0.0 oz / 55.656230 kg BSA 1.58 m2 BMI 21.1 kg/m2 Temperature 99.6 F / 37.56 C - Temporal Pulse 111 Respirations 16 Blood Pressure 124/80 Sitting, Right Arm Pulse Oximetry 92%, OXY, 2 lpm Pain Ratin Pain Scale: Number Medications and Allergies Medications Metoprolol Succinate (METOPROLOL SUCCINATE) 25 Mg Tab.er.24h 1 TAB PO QDAY, TAB Reported 12/12/17 Levothyroxine Sodium (LEVOTHYROXINE SODIUM) 25 Mcg Tablet 25 MCG PO QDAY Reported 04/07/15 Allergies: Coded Allergies: carboplatin (Verified Allergy, Severe, RASH, 12/27/17) HEART RATE AND BLOOD PRESSURE ELEVATION ketorolac (Verified Allergy, Mild, RASH, 12/27/17) face and ears fell tingly and she felt like she was getting a rash. Past, Family, & Social History Family History Family History: FH: CABG (coronary artery bypass surgery) FATHER FH: lung cancer MOTHER FHx: heart disease FATHER Tobacco Use Smoking Status: Never Smoker Exposure to Second Hand Smoke?: Yes Alcohol Use Alcohol Use: Former Substance Use Social Drug Use: Never Subjective Subjective 57-year-old female with ovarian cancer and a history of recurrent right malignant pleural effusion that had been treated with an indwelling catheter which has been removed by myself a couple of months ago is now referred to me with a recurring left pleural effusion and a persistent pneumothorax after thoracentesis last week. Her main complaint is shortness of breath. No other complaints today. Exam General Appearance: Alert, Awake, No Acute Distress, Afebrile Neuro: No Gross deficits Eyes: PERRLA Respiratory: Other (decreased breath sounds in both lungs, worse on the left.) Extremities: Warm, Perfused Psych: Alert & Oriented X3, Appropriate Mood & Affect Assessment and Plan Ambulatory Assessment/Plan: Recurrent left pleural effusion - J90 Ovarian cancer Malignant neoplasm of ovary, unspecified laterality - C56.9 Laterality: unspecified laterality Notes I have discussed the x-ray results with the patient and have discussed performing a thoracentesis with pneumothorax evacuation, possible chest tube placement. I've also discussed placing an indwelling pleural catheter. After having experienced an indwelling pleural catheter on her right side, she would prefer to have a left indwelling pleural catheter. Because of her degree of shortness of breath, we will admit her from the clinic to the hospital and had her on for this evening for left indwelling pleural catheter placement. I have explained the surgery to her in great detail as well as the alternatives, risks, and expected recovery. She indicates her understanding of this discussion and her questions have been answered. She would like to proceed with this plan including left chest indwelling pleural catheter placement. Venous Thromboembolism VTE Risk Physician Assess for VTE Risk: Yes Patient's VTE Risk: Low VTE Diagnostic Test 2 Days Prior to Admit: No Antithrombotics Is Pt On Any Antithrombotics?: No MILY HIGHTOWER MD Mar 09, 2018 16:04
--- NOTE | 2018-03-09 16:09 | EKG ---
FACILITY: [facility] - [place] PATIENT NAME: HANNAH BOYKIN : [id number] MR: [id number] V: [id number] EXAM DATE: ORDERING PHYSICIAN: MILY HIGHTOWER TECHNOLOGIST: KRISTAL López Reason : PRE-OP PROTOCOL Blood Pressure : / mmHG Vent. Rate : 097 BPM Atrial Rate : 097 BPM P-R Int : 146 ms QRS Dur : 080 ms QT Int : 342 ms P-R-T Axes : 052 056 053 degrees QTc Int : 434 ms Normal sinus rhythm Normal ECG When compared with ECG of 04-DEC-2017 22:16, T wave inversion no longer evident in Inferior leads Confirmed by MILY MORALES ([id number]) on 03/09/2018 9:02:00 PM Referred By: KATJA Confirmed By:MILY MORALES
[2018-03-09 16:13] LABS: PLATELET COUNT, AUTOMATED 216 K/uL (150-450)
[2018-03-09] MEDS ORDERED: ROPIVACAINE 0.5% 20 ML VIAL ONE (16:24)
[2018-03-09] MEDS ORDERED: LIDO/EPI 1% MPF 1:200,000 30ML ONE (16:25)
[2018-03-09] MEDS ORDERED: FAMOTIDINE(*) 20MG/50ML PREMIX 50 ML IVPB ONE (16:30)
[2018-03-09] MEDS ORDERED: MIDAZOLAM 2 MG/2 ML VIAL ONE (17:09)
[2018-03-09] MEDS ORDERED: PROPOFOL EMUL(*) 10MG/ML 20 ML 20 ML ONE (17:10)
[2018-03-09] MEDS ORDERED: ceFAZolin 1 GM VIAL IVP ONE (17:15)
--- NOTE | 2018-03-09 17:25 | NUR ---
IV ANCEF SENT BACK TO THE OR WITH Johana SOMERS RN TO BE ADMINISTERED IN THE OR ORDERED BY DR. HIGHTOWER.
--- NOTE | 2018-03-09 18:19 | Post Operative Progress Note ---
Post Operative Progress Note Date: Mar 09, 2018 Time: 18:11 Surgeon: Juan Jose Dictation number: [id number] Anesthesia: MAC by Dr. Patterson Pre-Op Diagnosis: Ovarian cancer Recurrent malignant left pleural effusion Post-Op Diagnosis: LAURI Findings: None Procedure(s): Left indwelling pleural catheter placement Specimen Removed:(May be N/A): None Complications: None Fluids: See anesthesia record Estimated Blood Loss: Minimal Date OP Note Dictated: Mar 09, 2018 Time OP Note Dictated: 18:13 MILY HIGHTOWER MD Mar 09, 2018 18:19
[2018-03-09] MEDS ORDERED: ACETAMINOPHEN 500 MG TAB PO ONE (18:25)
[2018-03-09] MEDS ORDERED: ACETAMINOPHEN 325 MG TAB PO PRN (18:45)
--- NOTE | 2018-03-09 19:05 | RADIOLOGY IMAGING REPORT ---
FACILITY: [facility] [place] PATIENT NAME: Shelby Cabrera : 1960 MR: [id number] V: [id number] EXAM DATE: ORDERING PHYSICIAN: MILY HIGHTOWER TECHNOLOGIST: Location: [facility] [place] Patient: Shelby Cabrera : 1960 Visit/Account:[id number] Date of Sevice: 03/09/2018 Study: CHEST SINGLE AP Indication: Left indwelling pleural catheter placement Comparison study: March 09, 2018 Findings: AP view of the chest demonstrates the presence of a pleural drainage tube at the base of th e left hemithorax. There are moderate bilateral pleural effusions present. Underlying infiltrate lisandro ot be ruled out. There is no evidence of pneumothorax. Again noted is the presence of an implanted port within the right chest. IMPRESSION: Interval placement of left-sided pleural drain. Moderate bilateral pleural effusions. Report Dictated By: Angel Pineda at 03/09/2018 6:59 PM Report E-Signed By: Angel Pineda at 03/09/2018 7:01 PM WSN:[email or web address]
[2018-03-10 00:30] VITALS: BP 114/74
--- NOTE | 2018-03-10 02:36 | OPERATIVE REPORT 1 ---
EVENT DATE: March 09, 2018 SURGEON: Ivan Ingram MD ANESTHESIOLOGIST: Dillon Patterson MD ANESTHESIA: MAC. PREOPERATIVE DIAGNOSIS 1. Ovarian cancer. 2. Recurrent malignant left pleural effusion. POSTOPERATIVE DIAGNOSIS 1. Ovarian cancer. 2. Recurrent malignant left pleural effusion. PROCEDURE PERFORMED Left indwelling pleural catheter placement. COMPLICATIONS None. CONDITION Stable. BLOOD LOSS Minimal. INDICATIONS This is a 57-year-old female who was seeing her lang path therapist today, and he called me because she has been having recurring pleural effusions and had a thoracentesis last week and has a persistent small pneumothorax. Her effusion has recurred. We discussed options including repeat thoracentesis versus placing a chest tube versus an indwelling catheter, and I discussed these with the patient, and she elected to proceed with an indwelling catheter. She did have an indwelling catheter on her right chest for recurring pleural effusions, but they seemed to have improved, and the catheter was ultimately removed a couple of months ago. DESCRIPTION OF PROCEDURE Patient was brought to the operating room and placed upon the operating table. Once all the appropriate monitors were connected, she was placed in a right lateral decubitus position on the table and secured with a beanbag and strap, and MAC anesthesia was administered. Her left chest was prepped and draped in a sterile fashion. I identified about the sixth intercostal space and anesthetized the skin with 1% lidocaine with epinephrine, and then made an incision in the skin and used the access needle to access the pleural space and was able to easily aspirate pleural fluid. I threaded the wire through the needle and removed the needle and then used the dilators, and ultimately dilated it up until the sheath was inserted over a dilator, and then the dilator and wire were removed, leaving the sheath in place. I then measured about 10 cm inferoanterior to this incision and identified another spot to have the catheter exit her skin. I anesthetized the skin with 1% lidocaine with epinephrine and made an incision here, and then used the tunneler and pulled the catheter from the anteroinferior incision up to the access site in the lateral chest, and pulled the catheter through. I then removed a tunneler from the catheter and then threaded the catheter through the sheath, and then removed the sheath. I made sure the cuff was under the skin less than 1 cm from the incision, and then I used the security clasp around the catheter after anesthetizing the skin, and sutured the catheter to her skin. I then closed the incision on the lateral aspect of her chest with a single subcuticular 4-0 Monocryl suture. Her skin was cleaned, dried, and Steri-Strips were applied, followed by sterile surgical dressing. I then removed the inner cannula from the indwelling catheter after lubricating the catheter with some saline, and then I connected the Luer Lock onto the end of the catheter, and then I drained out about 1400 mL of pleural fluid without any problems until no more would come out. I then placed the drain sponge around the catheter and then circled the catheter on the drain sponges, covering them with regular 4x4 gauze, and then covered this with a large Tegaderm. She was then transferred to a regular gurney and transported to the recovery room in stable condition, having tolerated the procedure without any apparent problems. CARRINGTON
[2018-03-10 04:30] VITALS: BP 133/86
[2018-03-10] MEDS ORDERED: LEVOTHYROXINE SOD 0.025 MG TAB PO SCH (06:00)
--- NOTE | 2018-03-10 06:04 | RADIOLOGY IMAGING REPORT ---
FACILITY: [facility] PATIENT NAME: Shelby Cabrera : 1960 MR: [id number] V: [id number] EXAM DATE: ORDERING PHYSICIAN: MILY HIGHTOWER TECHNOLOGIST: Location: [facility] Patient: Shelby Cabrera : 1960 Visit/Account:[id number] Date of Sevice: 03/10/2018 CHEST SINGLE AP 03/10/2018 05:00 hours. HISTORY: Recurring left pleural effusion and pneumothorax. COMPARISON: 03/09/2018 and studies dating to 04/23/2017. TECHNIQUE: Portable AP view of the chest. FINDINGS: Tubes/lines/hardware: Right port terminates in the upper right atrium. There is a drainage tube at th e left lung base, unchanged. There are bilateral ureteral stents, unchanged. Pulmonary/pleura: There are stable bilateral pleural effusions and adjacent bibasilar opacities, like ly atelectasis. Stable irregular opacity in the left upper lung field. Their is a small left lateral pneumothorax, smaller. Cardiomediastinal: Cardiac and mediastinal silhouettes are within normal limits. Bones/soft tissues: No acute osseous abnormality. The visible abdomen is normal. IMPRESSION: 1. Small left lateral pneumothorax continues to decrease in size. 2. No change in the bilateral pleural effusions or bibasilar atelectasis. 3. Tubes and lines as above. Report Dictated By: Michelle Arrington at 03/10/2018 5:53 AM Report E-Signed By: Michelle Arrington at 03/10/2018 6:01 AM WSN:[id number]
[2018-03-10 07:34] VITALS: BP 134/91
[2018-03-10] MEDS ORDERED: PANTOPRAZOLE SOD 40 MG IV VIAL IVP SCH (09:00)
[2018-03-10] MEDS ORDERED: METOPROLOL SUCC XL 25 MG TABCR PO SCH (09:00)
[2018-03-10] MEDS ORDERED: PANTOPRAZOLE SOD 40 MG TABEC PO SCH (09:00)
--- NOTE | 2018-03-10 09:33 | Short(Outpt) Discharge Summary ---
Discharge Summary Reason for Hosp/Final Diag: (1) Recurrent left pleural effusion Status: Chronic Hospital Course & Plan: 03/10/18: POD#1 s/p left indwelling pleural drain pl acement. Doing well. Will d/c to home. (2) Ovarian cancer Status: Chronic Departure Discharge to: Home, Self Care Discharge Instructions Home Meds Reported Medications Metoprolol Succinate (METOPROLOL SUCCINATE) 25 Mg Tab.er.24h, 1 TAB PO QDAY, TAB 12/12/17 Levothyroxine Sodium (LEVOTHYROXINE SODIUM) 25 Mcg Tablet, 25 MCG PO QDAY 04/07/15 Follow up Referrals: General Surgery - 03/27/18 @ Surgery, General with MILY HIGHTOWER MD You have a follow up appointment scheduled with Dr. Hightower on 03/27/18, at 10:45am. Diet: Regular Activity: As Tolerated Special Instructions: You may drain your left chest with the provided kits as needed. You may remove the white dressing on 03/11/18. You may shower after the white dressing comes off but keep the drain dressing on while showering. Please call my office so we can order you more drainage supplies when you're more than a week from running out of your supplies to give us time to order more for you and get them to you before you run out. Change the dressing weekly, even if you don't have to drain your chest during that week. I will see you back in my office on 03/27/18 at 10:45am and I'll remove the dressing, drain your chest remove the sutures, and chest the drain incision and insertion incision at that time. Problem Qualifiers (1) Ovarian cancer: Laterality: unspecified laterality Qualified Codes: C56.9 - Malignant neoplasm of unspecified ovary MILY HIGHTOWER MD Mar 10, 2018 09:33
[2018-03-10 10:32] VITALS: Ht 157.5 cm; Wt 54.4 kg
[2018-03-11] MEDS ORDERED: CIPR-214 PO (14:14)
== END 2018-03-10 11:15 | disposition home or self-care (01) | DRG 181 ==
LOC: MED 14:09
PROVIDERS: ADMIT Surgery; ATTEND Surgery
PROC: 0B9P30Z Drainage of Left Pleura with Drainage Device, Percutaneous Approach (ICD-10-PCS; principal; 2018-03-09 17:22)
DX: J91.0 Malignant pleural effusion (principal); C56.9 Malignant neoplasm of unspecified ovary; Z88.8 Allergy status to other drugs, medicaments and biological substances
CPT/HCPCS: 71045; 82310; 82374; 82435; 82565; 82947; 84132; 84295; 84520; 85025; 93005; J0690; J2250; J2704; J2795; J3490

== ENCOUNTER → 2018-03-09 | Outpatient (CLI) | payer BC ==
[2017-12-05 09:11] VITALS: BMI 24.5
--- NOTE | 2018-03-09 11:25 | RADIOLOGY IMAGING REPORT ---
[place] [facility] [place]IENT NAME: Shelby Cabrera : 1960 MR: [id number] V: [id number] EXAM DATE: ORDERING PHYSICIAN: ADDIE DOLAN TECHNOLOGIST: [place] [facility] [place]: Shelby Cabrera : 1960 Visit/Account:[id number] Date of Sevice: 03/09/2018 Exam type: CHEST PA LAT History: Ovarian cancer, bilateral pleural effusions, left-sided pneumothorax Comparison: March 05, 2018. Findings: Left-sided pneumothorax has decrease in size now measures approximately 15-20%. There Appears to be a slight increase in the left pleural effusion. Left basilar airspace consolidation remains unchange d. Moderate right pleural effusion and right basilar airspace consolidation remains stable. Cardiac silhouette appears normal. Implanted right-sided port also unchanged. Incompletely imaged are bila teral ureteral stents IMPRESSION: 1. Left-sided pneumothorax has decreased in size and now measures approximately 15-20% There appears to be slight increased left pleural effusion Moderate right pleural effusion and bilateral lower lobe airspace consolidation remains unchanged Report Dictated By: Beth Henriquez MD at 03/09/2018 11:19 AM Report E-Signed By: Beth Henriquez MD at 03/09/2018 11:22 AM WSN:[email or web address]
== END ==
LOC: RAD 10:50
PROVIDERS: ATTEND Physician Assistant
DX: J93.83 Other pneumothorax (principal); J91.8 Pleural effusion in other conditions classified elsewhere
CPT/HCPCS: 71046

== ENCOUNTER 2018-03-16 15:08 | Emergency (ER) | payer BC ==
[2017-12-05 09:11] VITALS: Wt 54.4 kg
--- NOTE | 2018-03-16 17:14 | ER Report ---
History and Physical Time Seen By MD: 17:14 Hx. of Stated Complaint: PT HAVING DIFFICULTY WITH DRAIN PLACED LAST FRIDAY WITH PLEURACENTESIS, LEAKING/NOT FLUSHING. DENIES SOB, FEVER AT HOME (GERALDO LOPEZ MD) Time Seen By MD: 18:00 (ALEXIA GAN MD) HPI/ROS CHIEF COMPLAINT: pleural catheter problem HISTORY OF PRESENT ILLNESS: This is a 57 year old female with history of metastatic ovarian cancer with pleural effusion. Pigtail pleural catheter placed by Dr. Ingram. Problem with not draining well now and leakage around the tube with some swelling in the skin. No redness. No fevers. Not short of breath. No chest pain. (ALEXIA GAN MD) Allergies: Coded Allergies: carboplatin (Verified Allergy, Severe, RASH, 03/16/18) HEART RATE AND BLOOD PRESSURE ELEVATION ketorolac (Verified Allergy, Mild, RASH, 03/16/18) face and ears fell tingly and she felt like she was getting a rash. Home Meds Reported Medications Metoprolol Succinate (METOPROLOL SUCCINATE) 25 Mg Tab.er.24h, 1 TAB PO QDAY, TAB 12/12/17 Levothyroxine Sodium (LEVOTHYROXINE SODIUM) 25 Mcg Tablet, 25 MCG PO QDAY 04/07/15 Reviewed Nurses Notes: Yes (ALEXIA GAN MD) Hx Smoking: No Smoking Status: Never Smoker Exposure to Second Hand Smoke?: Yes Hx Substance Use Disorder: No Hx Alcohol Use: Yes (GERALDO LOPEZ MD) Constitutional Vital Sign - Last 24 Hours 03/16/18 03/16/18 03/16/18 03/16/18 15:10 15:10 15:21 15:30 Temp 98.4 Pulse 113 113 Resp 20 29 B/P (MAP) 158/91 150/91 (110) 132/97 (109) Pulse Ox 96 96 O2 Delivery Nasal Cannula O2 Flow Rate 3.0 03/16/18 03/16/18 03/16/18 03/16/18 15:45 16:00 16:15 16:30 Pulse 109 108 108 109 Resp 7 10 13 14 B/P (MAP) 119/82 (94) 129/87 (101) Pulse Ox 96 96 96 97 03/16/18 03/16/18 03/16/18 03/16/18 16:45 17:00 17:15 17:30 Pulse 112 107 110 Resp 29 13 26 19 B/P (MAP) 131/84 (100) 130/90 (103) Pulse Ox 96 97 03/16/18 03/16/18 03/16/18 03/16/18 18:00 18:15 18:30 18:45 Pulse 106 112 111 108 Resp 14 17 25 5 B/P (MAP) 115/82 (93) 129/89 (102) Pulse Ox 95 94 95 95 03/16/18 03/16/18 03/16/18 03/16/18 18:50 19:00 19:05 19:20 Pulse 107 108 110 Resp 20 15 15 B/P (MAP) 131/80 (97) Pulse Ox 96 95 94 03/16/18 03/16/18 03/16/18 03/16/18 19:25 19:30 19:40 19:55 Pulse 112 110 109 Resp 15 11 17 B/P (MAP) 141/92 (108) Pulse Ox 94 96 95 03/16/18 03/16/18 03/16/18 20:00 20:10 20:25 Pulse 108 106 Resp 20 17 B/P (MAP) 131/89 (103) Pulse Ox 96 95 (ALEXIA GAN MD) Physical Exam General: Alert, no distress. Respiratory: Breathing easily. Skin: Pleural catheter site without redness. Some swelling where it tunnels under the skin. Minimal tenderness. (ALEXIA GAN MD) Medical Decision Making EKG/Imaging Imaging CHEST PA LAT COMPARISONS: Single view chest dated March 10, 2018 ADDITIONAL PERTINENT HISTORY: Pleural drain not working FINDINGS: Life-support: Right internal jugular venous port with its tip in the right atrium. This is stable in appearance from previous exam. Cardiomediastinal silhouette: Negative. Pulmonary vasculature: Negative. Lung castorena: Strandy opacity at both lung bases likely representing atelectatic change. Pleural spaces: Moderate sized bilateral pleural effusions, stable from previous exam. Osseous structures: Negative. Surrounding soft tissues: Pigtail catheter projecting over the left midabdomen. IMPRESSION: No significant change since previous exam. Report Dictated By: Marc Pizarro MD at 03/16/2018 7:06 PM (ALEXIA GAN MD) ED Course/Re-evaluation ED Course Hooked up drainage bag to the catheter. Drained about 100cc of yellow clear pleural fluid. We talked about doing a small dose of throbolytic for a fibrin clot in the catheter. She considered this, but eventually decided to not have us do this.. I called and spoke with Dr. Caldwell as well. She will follow-up with Dr. Ingram once he is back in town. Return for signs of skin infection, or worsening breathing or chest pain. Decision to Disposition Date: Mar 16, 2018 Decision to Disposition Time: 20:38 (ALEXIA GAN MD) Depart Departure Latest Vital Signs Vital Signs Date Time Temp Pulse Resp B/P (MAP) Pulse Ox O2 Delivery O2 Flow Rate FiO2 03/16/18 20:25 106 17 95 03/16/18 20:00 131/89 (103) 03/16/18 15:10 98.4 Nasal Cannula 03/16/18 15:10 3.0 (ALEXIA GAN MD) Impression: Primary Impression: Pleural effusion Condition: Improved Disposition: HOME OR SELF-CARE Referrals: ADDIE DOLAN PA-C (PCP) Additional Instructions: Keep draining the fluid as directed by Dr. Ingram and follow-up with him for re-evaluation. Return if needed for shortness of breath. GERALDO LOPEZ MD Mar 16, 2018 17:14 ALEXIA GAN MD Mar 16, 2018 20:41
[2018-03-16] MEDS: ALTEPLASE RECOMB 2 MG VIAL IVP ONE ×2 (18:25→18:58)
--- NOTE | 2018-03-16 19:11 | RADIOLOGY IMAGING REPORT ---
[place] [facility] [place]: Shelby Cabrera : 1960 MR: [id number] V: [id number] EXAM DATE: ORDERING PHYSICIAN: GERALDO LOPEZ TECHNOLOGIST: Location: [facility] - [place], [place] Patient: Shelby Cabrera : 1960 Visit/Account:[id number] Date of Sevice: 03/16/2018 CHEST PA LAT COMPARISONS: Single view chest dated March 10, 2018 ADDITIONAL PERTINENT HISTORY: Pleural drain not working FINDINGS: Life-support: Right internal jugular venous port with its tip in the right atrium. This is stable in appearance from previous exam. Cardiomediastinal silhouette: Negative. Pulmonary vasculature: Negative. Lung castorena: Strandy opacity at both lung bases likely representing atelectatic change. Pleural spaces: Moderate sized bilateral pleural effusions, stable from previous exam. Osseous structures: Negative. Surrounding soft tissues: Pigtail catheter projecting over the left midabdomen. IMPRESSION: No significant change since previous exam. Report Dictated By: Marc Pizarro MD at 03/16/2018 7:06 PM Report E-Signed By: Marc Pizarro MD at 03/16/2018 7:07 PM WSN:[id number]
[2018-03-16 20:00] VITALS: BP 131/89
== END 2018-03-16 20:46 | disposition home or self-care (01) ==
LOC: ER 17:35
DX: J90 Pleural effusion, not elsewhere classified (principal); Z96.89 Presence of other specified functional implants
CPT/HCPCS: 71046; 99283; J2997

== ENCOUNTER 2018-03-20 17:48 | Inpatient (IN) | payer BC ==
[~2018-03-20] VITALS: Ht 160 cm; Wt 50.3 kg
--- NOTE | 2018-03-20 17:57 | ER Report ---
History and Physical Time Seen By MD: 17:57 HPI/ROS CHIEF COMPLAINT: Abdominal pain and bloating 1 week HISTORY OF PRESENT ILLNESS: 57-year-old female patient presents to emergency room with complaint of abdominal pain and bloating 1 week. Patient states very nauseated and has been vomiting. Patient states not been able to keep anything down for the last couple of days. She states that she's not been able to pass gas. She states she's been burping a lot. She denies having any fevers or chills. Patient states that her belly is extremely bloated. She states this tender to touch. She states she is not taking any medication for this. REVIEW OF SYSTEMS: Respiratory: No cough, no dyspnea. Cardiovascular: No chest pain, no palpitations. Gastrointestinal: As noted above Musculoskeletal: No back pain. Allergies: Coded Allergies: carboplatin (Verified Allergy, Severe, RASH, 03/20/18) HEART RATE AND BLOOD PRESSURE ELEVATION ketorolac (Verified Allergy, Mild, RASH, 03/20/18) face and ears fell tingly and she felt like she was getting a rash. Home Meds Reported Medications Nitrofurantoin Macrocrystal (NITROFURANTOIN) 50 Mg Capsule 03/20/18 Omeprazole (OMEPRAZOLE) 40 Mg Capsule. 03/20/18 Ondansetron 4 Mg Odt (ONDANSETRON 4 MG ODT) 4 Mg Tab.rapdis 03/20/18 Metoprolol Succinate (METOPROLOL SUCCINATE) 25 Mg Tab.er.24h, 1 TAB PO QDAY, TAB 12/12/17 Levothyroxine Sodium (LEVOTHYROXINE SODIUM) 25 Mcg Tablet, 25 MCG PO QDAY 04/07/15 Past Medical/Surgical History Patient has a past medical history of hypertension, hyperlipidemia, gallstones, ovarian cancer, frequent UTI, hypothyroidism, alcohol use. Patient has a history of appendectomy, stent placement, hysterectomy, tubal ligation, left knee repair. Reviewed Nurses Notes: Yes Hx Smoking: No Smoking Status: Never Smoker Exposure to Second Hand Smoke?: Yes Hx Substance Use Disorder: No Hx Alcohol Use: Yes Constitutional Vital Sign - Last 24 Hours 03/20/18 03/20/18 03/20/18 03/20/18 17:53 17:55 18:03 18:05 Temp 97.7 Pulse 116 112 Resp 24 12 B/P (MAP) 130/95 130/95 (107) 120/92 (101) Pulse Ox 93 93 O2 Delivery Nasal Cannula 03/20/18 03/20/18 03/20/18 03/20/18 18:18 18:23 18:53 18:58 Pulse 105 105 106 110 Resp 22 19 29 9 Pulse Ox 94 94 95 98 03/20/18 03/20/18 03/20/18 19:00 19:05 19:38 Pulse 106 Resp 29 B/P (MAP) 120/85 (97) 139/88 (105) Pulse Ox 97 Physical Exam General Appearance: The patient is alert, has no immediate need for airway protection and no current signs of toxicity. Respiratory: Chest is non tender, lungs are clear to auscultation. Cardiac: regular rate and rhythm Gastrointestinal: Abdomen is distended and tender, no masses, bowel sounds hypoactive. Musculoskeletal: Neck: Neck is supple and non tender. Extremities have full range of motion and are non tender. Skin: No rashes or lesions. DIFFERENTIAL DIAGNOSIS: After history and physical exam differential diagnosis was considered for abdominal pain including but not limited to appendicitis, cholecystitis, gastritis and urinary tract infection. Medical Decision Making Data Points Result Diagram: 03/20/18 1800 03/20/18 1800 Laboratory Hematology Test 03/20/18 18:00 Red Blood Count 4.78 M/uL (4.17-5.56) Mean Corpuscular Volume 85.7 fL (80.0-96.0) Mean Corpuscular Hemoglobin 27.6 pg (26.0-33.0) Mean Corpuscular Hemoglobin Concent 32.3 g/dL (32.0-36.0) Red Cell Distribution Width 16.2 % (11.5-14.5) Mean Platelet Volume 8.2 fL (7.2-11.1) Neutrophils (%) (Auto) 82.4 % (39.4-72.5) Lymphocytes (%) (Auto) 7.3 % (17.6-49.6) Monocytes (%) (Auto) 8.5 % (4.1-12.4) Eosinophils (%) (Auto) 0.4 % (0.4-6.7) Basophils (%) (Auto) 1.4 % (0.3-1.4) Nucleated RBC Relative Count (auto) 0.0 /100WBC Neutrophils # (Auto) 4.4 K/uL (2.0-7.4) Lymphocytes # (Auto) 0.4 K/uL (1.3-3.6) Monocytes # (Auto) 0.5 K/uL (0.3-1.0) Eosinophils # (Auto) 0.0 K/uL (0.0-0.5) Basophils # (Auto) 0.1 K/uL (0.0-0.1) Nucleated RBC Absolute Count (auto) 0.00 K/uL Sodium Level 137 mmol/L (137-145) Potassium Level 4.0 mmol/L (3.5-5.0) Chloride Level 97 mmol/L (98-107) Carbon Dioxide Level 34 mmol/L (22-31) Blood Urea Nitrogen 19 mg/dl (7-18) Creatinine 0.80 mg/dl (0.52-1.04) Glomerular Filtration Rate Calc > 60.0 Random Glucose 107 mg/dl (75-110) Calcium Level 9.2 mg/dl (8.4-10.2) Total Bilirubin 0.4 mg/dl (0.2-1.3) Aspartate Amino Transf (AST/SGOT) 60 U/L (0-35) Alanine Aminotransferase (ALT/SGPT) 30 U/L (0-56) Alkaline Phosphatase 131 U/L (0-126) Total Protein 8.0 g/dl (6.3-8.2) Albumin 3.8 g/dl (3.5-5.0) Amylase Level 154 U/L (0-110) Lipase 219 U/L (23-300) Chemistry Test 03/20/18 18:00 White Blood Count 5.4 k/uL (4.5-11.0) Red Blood Count 4.78 M/uL (4.17-5.56) Hemoglobin 13.2 g/dL (12.0-16.0) Hematocrit 40.9 % (34.0-47.0) Mean Corpuscular Volume 85.7 fL (80.0-96.0) Mean Corpuscular Hemoglobin 27.6 pg (26.0-33.0) Mean Corpuscular Hemoglobin Concent 32.3 g/dL (32.0-36.0) Red Cell Distribution Width 16.2 % (11.5-14.5) Platelet Count 282 K/uL (150-450) Mean Platelet Volume 8.2 fL (7.2-11.1) Neutrophils (%) (Auto) 82.4 % (39.4-72.5) Lymphocytes (%) (Auto) 7.3 % (17.6-49.6) Monocytes (%) (Auto) 8.5 % (4.1-12.4) Eosinophils (%) (Auto) 0.4 % (0.4-6.7) Basophils (%) (Auto) 1.4 % (0.3-1.4) Nucleated RBC Relative Count (auto) 0.0 /100WBC Neutrophils # (Auto) 4.4 K/uL (2.0-7.4) Lymphocytes # (Auto) 0.4 K/uL (1.3-3.6) Monocytes # (Auto) 0.5 K/uL (0.3-1.0) Eosinophils # (Auto) 0.0 K/uL (0.0-0.5) Basophils # (Auto) 0.1 K/uL (0.0-0.1) Nucleated RBC Absolute Count (auto) 0.00 K/uL Glomerular Filtration Rate Calc > 60.0 Calcium Level 9.2 mg/dl (8.4-10.2) Total Bilirubin 0.4 mg/dl (0.2-1.3) Aspartate Amino Transf (AST/SGOT) 60 U/L (0-35) Alanine Aminotransferase (ALT/SGPT) 30 U/L (0-56) Alkaline Phosphatase 131 U/L (0-126) Total Protein 8.0 g/dl (6.3-8.2) Albumin 3.8 g/dl (3.5-5.0) Amylase Level 154 U/L (0-110) Lipase 219 U/L (23-300) EKG/Imaging Imaging CT abdomen and pelvis with IV contrast Indication: Abdominal pain and bloating. Comparison: 12/03/2017.. Technique: Axial CT images were obtained through the abdomen and pelvis during injection of nonionic iodinated intravenous contrast. Reformatted coronal and sagittal images were also obtained. One of the following dose optimization techniques was utilized in the performance of this exam: Automated exposure control; adjustment of the mA and/or kV according to the patient's size; or use of an iterative reconstruction technique. Specific details can be referenced in the facility's radiology CT exam operational policy. Contrast: 75 ml of Isovue-370 IV contrast. Findings: Lower lung castorena: There is a persistent small to moderate left pleural effusion and small right pleural effusion. Associated atelectasis. The right lower lobe continues show ill-defined pleural thickening and atelectasis without discrete nodule. The previous right pleural catheters have been removed. Liver: No focal lesions. The vasculature appears to be patent. Biliary: Continued gallstones. No other discrete gallbladder or biliary abnormality. Pancreas: No focal abnormality. Spleen: Normal appearance. Adrenal glands: Unremarkable. Kidneys / retroperitoneum: Bilateral pigtail ureteral stents are in place. No significant residual hydronephrosis or discrete stones. No discrete renal lesions. Bowel / peritoneum / mesenteries: Sigmoid colon does show diverticula without pericolonic inflammation. The rectosigmoid junction does show ill-defined masslike thickening measuring at least 5.5 x 3.8 cm and similar to the previous examination. This is similar to the previous examination. The colon shows no other discrete abnormality. The appendix is not visualized. There are multiple dilated loops of small bowel seen in the mid abdomen. The area of transition appears to be a poorly defined in the right lower abdomen. No focal lesion is appreciated. The bowel dilatation is new from the previous examination. The stomach is decompressed. A anterior abdominal catheter is in place. No discrete fluid collections. Small amount of free fluid is seen around the inferior tip of the liver. No focal areas of inflammation or free air. The anterior lower abdomen/pelvis does show a 4.0 x 3.5 cm hypodense mass like area which is more prominent than the previous examination. The other masses seen in left side of this region of the lower abdomen are not appreciated. Lymph node assessment: No pathologic adenopathy identified. Pelvic structures: The remaining pelvic structures visualized within normal limits. The uterus is not visualized may been surgically removed. Vessels: No significant atherosclerotic calcifications seen throughout a nonaneurysmal abdominal aorta and branches. Musculoskeletal / Body wall: No acute or aggressive osseous abnormality. Along the anterior abdominal wall there is a soft tissue nodule measuring 1.3 x 1.5 cm which is not seen previously. This is just above the level of the umbilicus and just left of the umbilicus. There is also a more prominent soft tissue mass seen along the right subcutaneous flank region measuring 4.0 x 2.4 cm. IMPRESSION: 1. Small bowel obstruction. Area of transition is poorly visualized but appears to be in the right lower abdomen. A discrete cause is not identified. 2. There continues be abnormal thickening and luminal narrowing of the rectosigmoid junction. This may represent a lesion or neoplasm and is similar to the previous examination. 3. There are new and/or enlarging soft tissue mass in the subcutis tissues of the right flank and anterior abdomen worrisome for metastatic spread of disease. There is also more prominent mass in the right lower abdomen/pelvis. The left- sided masses in this area are not well appreciated from previous exam.4. Abnormal stable right lower lung field with pleural irregular thickening or small effusion or atelectasis which could be secondary to metastatic disease. The previous catheter has been removed. There is stable small moderate left pleural effusion with atelectasis. 5. There is a catheter seen in the anterior abdomen without discrete fluid collection and small amount of free fluid around the inferior tip of the liver. 6. Sigmoid diverticulosis without radiographic indication diverticulitis. 7. Bilateral pigtail stent/catheters are seen in the ureters which are unchanged. There is no gross appreciable residual hydronephrosis. 8. other chronic findings as above. I called report to XIANG HARRISON at 03/20/2018 7:59 PM. Report Dictated By: Doe Barrett at 03/20/2018 7:43 PM Report E-Signed By: Deo Barrett at 03/20/2018 8:00 PM ED Course/Re-evaluation ED Course Patient was admitted to an exam room, history and physical were obtained. Differential diagnoses were considered. On examination lungs are clear, heart is regular, abdomen is distended, nontender, bowel sounds are hypoactive. An IV was started, a CBC, CMP were done. CBC showed a slight left shift, CMP showed dehydration with a BUN of [address] scan of the abdomen and pelvis was done which showed a small bowel obstruction. I discussed the findings with the patient. We discussed admission which she was amenable. I discussed the case with Dr. Vargas, general surgeon, who agreed to accept the patient for admission. Patient verbalized understanding and agreement with plan. Decision to Disposition Date: Mar 20, 2018 Decision to Disposition Time: 20:13 Depart Departure Latest Vital Signs Vital Signs Date Time Temp Pulse Resp B/P (MAP) Pulse Ox O2 Delivery O2 Flow Rate FiO2 03/20/18 19:38 139/88 (105) 03/20/18 19:05 106 29 97 03/20/18 17:53 97.7 Nasal Cannula Impression: Primary Impression: Small bowel obstruction Condition: Condition Unchanged Disposition: Admitted from ER Referrals: ADDIE DOLAN PA-C (PCP) XIAGN HARRISON Mar 20, 2018 17:57
[2018-03-20] MEDS ORDERED: NS(*) 0.9% 1000 ML BAG 1,000 ML IV ONE ×2 (18:03→21:10)
[2018-03-20 18:10] LABS: PLATELET COUNT, AUTOMATED 282 K/uL (150-450)
[2018-03-20] MEDS ORDERED: IOPAMIDOL 76% 50 ML INFUS BTL 100 ML ONE (18:26)
[2018-03-20] MEDS ORDERED: NITR50CA35 (18:46)
[2018-03-20] MEDS ORDERED: ONDA4TAB9 (18:46)
[2018-03-20] MEDS ORDERED: OMEP40CA48 (18:46)
--- NOTE | 2018-03-20 20:04 | RADIOLOGY IMAGING REPORT ---
FACILITY: [facility] [place] PATIENT NAME: Shelby Cabrera : 1960 MR: [id number] V: [id number] EXAM DATE: ORDERING PHYSICIAN: XIANG HARRISON TECHNOLOGIST: [place] [facility] [place] : 1960 Visit/Account:[id number] Date of Sevice: 03/20/2018 ADDENDUM #1 I was asked to review the position of a left-sided pleural catheter. There is a catheter extending th rough the sixth intercostal space anteriorly. It enters anterior to the diaphragm along the left cost ophrenic angle and pleural space then traverses the diaphragm into the abdomen, terminating within th e midline anterior abdomen. This represents a malpositioned catheter. Findings were discussed with Dr. Vargas at 10:20 PM. Report Dictated By: Aaron Clayton MD at 03/20/2018 10:20 PM Report E-Signed By: Aaron Clayton MD at 03/20/2018 10:[address] abdomen and pelvis with IV contrast Indication: Abdominal pain and bloating. Comparison: 12/03/2017.. Technique: Axial CT images were obtained through the abdomen and pelvis during injection of nonioni c iodinated intravenous contrast. Reformatted coronal and sagittal images were also obtained. One of the following dose optimization techniques was utilized in the performance of this exam: Autom ated exposure control; adjustment of the mA and/or kV according to the patient's size; or use of an i terative reconstruction technique. Specific details can be referenced in the facility's radiology C T exam operational policy. Contrast: 75 ml of Isovue-370 IV contrast. Findings: Lower lung castorena: There is a persistent small to moderate left pleural effusion and small right pleu ral effusion. Associated atelectasis. The right lower lobe continues show ill-defined pleural thicken ing and atelectasis without discrete nodule. The previous right pleural catheters have been removed. Liver: No focal lesions. The vasculature appears to be patent. Biliary: Continued gallstones. No other discrete gallbladder or biliary abnormality. Pancreas: No focal abnormality. Spleen: Normal appearance. Adrenal glands: Unremarkable. Kidneys / retroperitoneum: Bilateral pigtail ureteral stents are in place. No significant residual hy dronephrosis or discrete stones. No discrete renal lesions. Bowel / peritoneum / mesenteries: Sigmoid colon does show diverticula without pericolonic inflammatio n. The rectosigmoid junction does show ill-defined masslike thickening measuring at least 5.5 x 3.8 c m and similar to the previous examination. This is similar to the previous examination. The colon vahid ws no other discrete abnormality. The appendix is not visualized. There are multiple dilated loops of small bowel seen in the mid abdomen. The area of transition appears to be a poorly defined in the ri ght lower abdomen. No focal lesion is appreciated. The bowel dilatation is new from the previous exam ination. The stomach is decompressed. A anterior abdominal catheter is in place. No discrete fluid collections. Small amount of free fluid is seen around the inferior tip of the liver. No focal areas of inflammation or free air. The anterio r lower abdomen/pelvis does show a 4.0 x 3.5 cm hypodense mass like area which is more prominent than the previous examination. The other masses seen in left side of this region of the lower abdomen are not appreciated. Lymph node assessment: No pathologic adenopathy identified. Pelvic structures: The remaining pelvic structures visualized within normal limits. The uterus is not visualized may been surgically removed. Vessels: No significant atherosclerotic calcifications seen throughout a nonaneurysmal abdominal aort a and branches. Musculoskeletal / Body wall: No acute or aggressive osseous abnormality. Along the anterior abdominal wall there is a soft tissue nodule measuring 1.3 x 1.5 cm which is not s een previously. This is just above the level of the umbilicus and just left of the mbilicus. There i s also a more prominent soft tissue mass seen along the right subcutaneous flank region measuring 4.0 x 2.4 cm. IMPRESSION:1. Small bowel obstruction. Area of transition is poorly visualized but appears to be in t he right lower abdomen. A discrete cause is not identified. 2. There continues be abnormal thickening and luminal narrowing of the rectosigmoid junction. This ma y represent a lesion or neoplasm and is similar to the previous examination. 3. There are new and/or enlarging soft tissue mass in the subcutis tissues of the right flank and ant erior abdomen worrisome for metastatic spread of disease. There is also more prominent mass in the ri ght lower abdomen/pelvis. The left-sided masses in this area are not well appreciated from previous e xam. 4. Abnormal stable right lower lung field with pleural irregular thickening or small effusion or atel ectasis which could be secondary to metastatic disease. The previous catheter has been removed. There is stable small moderate left pleural effusion with atelectasis. 5. There is a catheter seen in the anterior abdomen without discrete fluid collection and small amoun t of free fluid around the inferior tip of the liver. 6. Sigmoid diverticulosis without radiographic indication diverticulitis. 7. Bilateral pigtail stent/catheters are seen in the ureters which are unchanged. There is no gross a ppreciable residual hydronephrosis. 8. other chronic findings as above. I called report to XIANG HARRISON at 03/20/2018 7:59 PM. Report Dictated By: Deo Barrett at 03/20/2018 7:43 PM Report E-Signed By: Deo Barrett at 03/20/2018 8:00 PM WSN:[id number]
--- NOTE | 2018-03-20 20:26 | Gen Surgery History & Physical ---
History of Present Illness Chief Complaint abdominal pain History of Present Illness 57 yo female with hx ovarian cancer presents with 6 day hx of abdominal pain, cramps, bloating. Mild nausea, minimal vomiting. Her PO intake has been limited the past 7 days. LBM today, She continues to pass flatus. No FCS. No s/s. Has seen Dr Cirilo Cortez in Oncology at [facility]. She is currently undergoing alternative treatment at her home and not on chemotherapy at this time. 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 It has drained 100 ml and 200 ml on two separate occasions this past week. She had a prior right pleural catheter which has been removed due to limited drainage by her report. History Unable To Obtain Past Medical: Home Meds Reported Medications Nitrofurantoin Macrocrystal (NITROFURANTOIN) 50 Mg Capsule 03/20/18 Omeprazole (OMEPRAZOLE) 40 Mg Capsule. 03/20/18 Ondansetron 4 Mg Odt (ONDANSETRON 4 MG ODT) 4 Mg Tab.rapdis 03/20/18 Metoprolol Succinate (METOPROLOL SUCCINATE) 25 Mg Tab.er.24h, 1 TAB PO QDAY, TAB 12/12/17 Levothyroxine Sodium (LEVOTHYROXINE SODIUM) 25 Mcg Tablet, 25 MCG PO QDAY 04/07/15 Allergies: Coded Allergies: carboplatin (Verified Allergy, Severe, RASH, 03/20/18) HEART RATE AND BLOOD PRESSURE ELEVATION ketorolac (Verified Allergy, Mild, RASH, 03/20/18) face and ears fell tingly and she felt like she was getting a rash. Patient History: FH: CABG (coronary artery bypass surgery) FATHER FH: lung cancer MOTHER FHx: heart disease FATHER Review of Systems All Systems Reviewed/Normal: Yes, Except as Noted Respiratory: Other (see HPI) Gastrointestinal: Other (see HPI) Exam General Appearance: Alert, Awake, No Acute Distress, Afebrile Neuro: No Gross deficits Cardiovascular: Regular Rate and Rhythm Respiratory: No Respiratory Distress, Clear to Auscultation Chest: No Masses, Other (left pleural catheter exit site clean with minimal edema) GI: Abd Soft and Non-Tender, Other (midline scar, no hernia, no mass, firm, distended, non-tender, with few + BS) Musculoskeletal: No Weakness/Pain Integumentary: Skin Intact without Lesion / Mass Psych: Alert & Oriented X3, Appropriate Mood & Affect Medical Decision Making Data Points Result Diagram: 03/20/18 1800 03/20/18 1800 EKG / Imaging Monitor Interpretation: Normal Sinus Rhythm Pre-Admit Course Medical Record Review: Yes Assessment and Plan Problems: (1) Small bowel obstruction Status: Acute Assessment & Plan: 57 yo female with high grade SBO on imaging though her exam is relatively benign and she is having bowel function. Admit with IVF, bowel rest, NGT if +NV and serial abdominal examinations. (2) Ovarian cancer Status: Chronic Assessment & Plan: ABD CT scan this evening with concern for progressive disease in the abdomen and pelvis. May need eval by [facility] at [facility] if pt agrees. (3) Pleural effusion, bilateral Status: Chronic Assessment & Plan: Concern the left pleural catheter is now in the upper abdomen. Doubt this is contributing to her SBO symptoms. Will review CT with Radiology and consider removal vs re-positioning. Time Spent: > 30 min Critical Time Spent: 1st 30-74 Minutes Venous Thromboembolism VTE Risk Physician Assess for VTE Risk: Yes Patient's VTE Risk: High VTE Diagnostic Test 2 Days Prior to Admit: No Antithrombotics Is Pt On Any Antithrombotics?: No BEN CROWE MD Mar 20, 2018 20:26
[2018-03-20] MEDS ORDERED: PROMETHAZINE 25 MG/ML 1 ML AMP IVP PRN (20:35)
[2018-03-20] MEDS ORDERED: ONDANSETRON 4 MG/2 ML VIAL IVP PRN (20:35)
[2018-03-20] MEDS ORDERED: ACETAMINOPHEN 325 MG TAB PO PRN (20:35)
[2018-03-20] MEDS ORDERED: NALOXONE HCL 0.4 MG/ML VIAL IVP PRN (20:35)
[2018-03-20 22:20] VITALS: BP 139/81
[2018-03-21] MEDS: KCL/D1/2NS 20 MEQ 1000 ML 1,000 ML IV PRN ×3 (01:29→18:19)
[2018-03-21 06:04] LABS: PLATELET COUNT, AUTOMATED 186 K/uL (150-450)
[2018-03-21 06:49] VITALS: BP 103/64
[2018-03-21] MEDS: PANTOPRAZOLE SOD 40 MG IV VIAL IVP SCH (08:23)
--- NOTE | 2018-03-21 08:47 | General Surgery Progress Note ---
Subjective Progress Notes Subjective + BM, feels better, wants to try liquids, wants to know why anorexic past few months Physical Exam Vital Signs Date Time Temp Pulse Resp B/P (MAP) Pulse Ox O2 Delivery O2 Flow Rate FiO2 03/21/18 07:42 92 Nasal Cannula 1.5 03/21/18 06:49 97.8 92 20 103/64 (77) Intake and Output 03/21/18 07:00 Intake Total 1385 ml Balance 1385 ml Intake Oral 10 ml IV Total 1375 ml # Voids 1 General Appearance: Alert, Awake, No Acute Distress, Afebrile Neuro: No Gross deficits Cardiovascular: Normal Rhythm & Peripheral Pulses Respiratory: No Respiratory Distress, Clear to Auscultation, Other (decreased at bases; port right chest with attenuated overlying skin) GI: Soft and Non-Tender, Other (mild distention) Musculoskeletal: No Weakness/Pain Integumentary: Skin Intact without Lesion / Mass Psych: Alert & Oriented X3, Appropriate Mood & Affect Result Diagram: 03/21/18 0516 03/21/18 05 Monitor Interpretation: Normal Sinus Rhythm Assessment and Plan Problems: (1) Small bowel obstruction Status: Acute Assessment & Plan: 57 yo female with high grade SBO on imaging though her exam is relatively benign and she is having bowel function. Admit with IVF, bowel rest, NGT if +NV and serial abdominal examinations. 03/21/18: start clear liquids this am and follow exam closely. (2) Ovarian cancer Status: Chronic Assessment & Plan: ABD CT scan this evening with concern for progressive disease in the abdomen and pelvis. May need eval by [facility] at [facility] if pt agrees. (3) Pleural effusion, bilateral Status: Chronic Assessment & Plan: Concern the left pleural catheter is now in the upper abdomen. Doubt this is contributing to her SBO symptoms. Will review CT with Radiology and consider removal vs re-positioning. 03/21/18 discussed above with pt and she is agreeable to either re-positioning or removal over next several days. (4) ANOREXIA Status: Chronic Assessment & Plan: long standing poor appetite and vague RUQ abdominal pain over past few months. Will likely need EGD in near future. check pre-albumin. Time Spent: > 30 min Exam Sepsis Risk: No Definite Risk BEN CROWE MD Mar 21, 2018 08:47
[2018-03-21 08:58] VITALS: Ht 160 cm; Wt 50.3 kg
[2018-03-21 11:27] VITALS: BP 112/69
[2018-03-21 15:03] VITALS: BP 143/91
[2018-03-21 19:36] VITALS: BP 119/78
[2018-03-21] MEDS ORDERED: ENOXAPARIN 40 MG/0.4ML SYR SC SCH (20:00)
[2018-03-22] MEDS: KCL/D1/2NS 20 MEQ 1000 ML 1,000 ML IV PRN (02:01)
[2018-03-22 06:53] VITALS: BP 126/72
--- NOTE | 2018-03-22 08:19 | General Surgery Progress Note ---
Subjective Progress Notes Subjective small BM this am, though continues to complain abd bloating and pain, no NV Physical Exam Vital Signs Date Time Temp Pulse Resp B/P (MAP) Pulse Ox O2 Delivery O2 Flow Rate FiO2 03/22/18 06:53 98.1 104 18 126/72 (90) 98 Nasal Cannula 1.5 Intake and Output 03/22/18 07:00 Intake Total 3843 ml Balance 3843 ml Intake Oral 500 ml IV Total 3343 ml # Voids 8 # Bowel Movements 3 General Appearance: Alert, Awake, No Acute Distress, Afebrile Cardiovascular: Normal Rhythm & Peripheral Pulses, Regular Rate and Rhythm Respiratory: No Respiratory Distress, Clear to Auscultation, Other (decreased at the bases, Left pleural catheter site clean, port site clean with attenuated overlying skin) GI: Other (firm, distended without peritoneal s/s) Musculoskeletal: No Weakness/Pain Integumentary: Skin Intact without Lesion / Mass Psych: Alert & Oriented X3, Appropriate Mood & Affect Result Diagram: 03/21/18 0516 03/21/18515 Monitor Interpretation: Normal Sinus Rhythm Assessment and Plan Problems: (1) Small bowel obstruction Status: Acute Assessment & Plan: 57 yo female with high grade SBO on imaging though her exam is relatively benign and she is having bowel function. Admit with IVF, bowel rest, NGT if +NV and serial abdominal examinations. 03/21/18: start clear liquids this am and follow exam closely. 03/22/18: unable to tolerate clear liquids, profound anorexia persists. Discussed malignant obstruction with the pt and family and they understand her treatment options are limited. Pt requesting to see Death Clearance Coordinator Onc who she has had contact with prior at [facility] for clinical trials. She will transfer to [facility] in [place] to see Dr Aryan Yung. She can travel via private car to minimize expense at her request. (2) Ovarian cancer Status: Chronic Assessment & Plan: ABD CT scan this evening with concern for progressive disease in the abdomen and pelvis. May need eval by Death Clearance Coordinator Onc at [facility] if pt agrees. 03/22/09: see plan above. (3) Pleural effusion, bilateral Status: Chronic Assessment & Plan: Concern the left pleural catheter is now in the upper abdomen. Doubt this is contributing to her SBO symptoms. Will review CT with Radiology and consider removal vs re-positioning. 03/21/18 discussed above with pt and she is agreeable to either re-positioning or removal over next several days. 03/22/18: pt does not want catheter removed or re-positioned at this time. (4) ANOREXIA Status: Chronic Assessment & Plan: long standing poor appetite and vague RUQ abdominal pain over past few months. Will likely need EGD in near future. check pre-albumin. 03/22/18: suspect this is due to progressive malignancy. Will not place NGT at this time since no active NV. Time Spent: > 30 min Exam Sepsis Risk: Sepsis Risk BEN CROWE MD Mar 22, 2018 08:19
[2018-03-22] MEDS: PANTOPRAZOLE SOD 40 MG IV VIAL IVP SCH (08:36)
[2018-03-22 10:49] VITALS: BP 134/80
--- NOTE | 2018-03-22 11:24 | Medical Nutrition Therapy ---
Nutrition Anthropometrics Height (Inches): 63.00 Height (Calculated Centimeters: 160.215691 Weight (Pounds): 111 Weight (Calculated Kilograms): 50.349 Darryn Nutrition Score: Very Poor Darryn Nutrition Risk Score: 20 Dietary Referral Nutrition Risk Factors: Unplanned Loss >10lbs Nutrition Risk Comment: Physical Findings Physical Appearance: Skin Appearance Skin Appearance: Edema Edema Location Modifier: Edema Location: Type of Edema: Degree of Edema: Gastrointestinal Symptoms GI Symtoms: Bloating, Change in Bowel Pattern Tube Present: Bowel Sounds: Recent Bowel Pattern: Stool Characteristics: Brown, Soft Nutritional Diagnosis Nutritional Risk Acuity 1: GI Obstruction Nutritional Risk Acuity 2: Unintended Wt Loss >5%/mo Nutritional Risk Acuity 3: Fair Appetite Nutritional Risk Acuity 4: %IBW 90-100% Past Medical History: Ovarian CA, pleural effusion, bilateral Nutritional Acuity: 1-High Nutrition Diagnosis: Inadequate Food Intake Nutrition Etiology: Loss of Appetite Nutrition Problem/Etiology/Sym: Inadequate food intake as related to loss of appetitie as evidenced by N/VMD note of anorexia, pt report of wt loss Energy Requirement: 1380 (M-St. Jeor X 1.1 (TEF) X1.2 (activity factor)) Adjusted Energy Requirement Re: 1880 (+500 kcal/day due to pt reported recent wt loss, increased needs due to medical condition) Protein Requirement: 75 (1.5 g protein/kg increased due to medical condition) Fluid Requirement: 1250 (25mL/kg) Diet Type: Clear Liquids Nutrition Intervention: Incr diet as tolerated Nutrition Monitoring & Eval Nutrition Goals: Eat 50-100% Meal Nutritional Goals Comment: Progress from [facility] to [facility] Nutrition Follow-Up: Poor Intake RD Patient Assessment Time: [address] Assessment Type: RD Assessment Patient Nutrition Acuity: 1-High Follow Up Date: Mar 24, 2018 Nutritional Comment: Pt admitted with abdominal pain, cramps, nausea, some vomiting. Dx with small bowel obstruction. Hx of ovarian cancer (currently not taking chemo) and pleural effusion bilateral. Unplanned wt loss is reported in notes. Pt wt of 50Kg is slightly below IBW. Pt on enoxaprin. WBC of 2.6, RBC of 3.80, hgb of 10.7, and hct of 33.2 are all low. RG of 113 is elevated. 8.3 Ca is low and 1.3 CRP is elevated. Monitor for progression of diet.-AKG 03/22: Pt continues on day 2 of CL diet with 0% intakes. No new labs to report. No medications of concern. When diet is progressed offer nutrition and protein supplements. Monitor for progression of diet and adequate intake.-SYDNI LANDEROS Mar 22, 2018 11:24
== END 2018-03-22 12:33 | disposition short-term general hospital (02) | DRG 389 ==
LOC: ER 17:50 → MED 21:10
PROVIDERS: ADMIT Surgery; ATTEND Surgery
DX: K56.609 Unspecified intestinal obstruction, unspecified as to partial versus complete obstruction (principal); J91.0 Malignant pleural effusion; Z68.1 Body mass index [BMI] 19.9 or less, adult; I10 Essential (primary) hypertension; E86.0 Dehydration; R63.0 Anorexia; K80.80 Other cholelithiasis without obstruction; E78.5 Hyperlipidemia, unspecified; E03.9 Hypothyroidism, unspecified; Z85.43 Personal history of malignant neoplasm of ovary; Z95.5 Presence of coronary angioplasty implant and graft; Z90.710 Acquired absence of both cervix and uterus; Z88.8 Allergy status to other drugs, medicaments and biological substances; Z92.21 Personal history of antineoplastic chemotherapy
CPT/HCPCS: 36415; 74177; 81001; 82040; 82150; 82247; 82310; 82374; 82435; 82565; 82947; 83690; 84075; 84132; 84155; 84295; 84450; 84460; 84520; 85025; 86140; 87088; 96360; 99284; C9113; J3480; J7030; Q9967